=== PATIENT | female | born 1940 | race Caucasian/White ===

== ENCOUNTER 2016-08-31 07:00 | Inpatient (IN) | payer OTHER ==
[2016-08-02 12:22] VITALS: BMI 28.0
--- NOTE | 2016-08-02 12:56 | PAT Medication Instructions ---
Service Date Aug 02, 2016. Current Home Medication List Atenolol (Tenormin), 100 MG PO QAM Carboxymethylcellulose Sodium (Refresh), 1 DROP OPB TID PRN for PRN Docusate Sodium (Colace), 1 CAP PO BID PRN for Constipation Esomeprazole Magnesium (Nexium), 40 MG PO QAM Hydrocortisone 2.5% (Rectal) (Anusol-Hc 2.5%), 1 APPLN RE BID PRN for PRN Lisinopril (Zestril), 10 MG PO QAM Ondansetron Odt (Zofran Odt), 8 MG SL Q6H PRN for Nausea Probiotic Product (Loterity), 1 CAP PO QAM Tramadol (Ultram), 50 MG PO Q6H [Cymbalta], 1 TAB PO QAM Medication Instructions For Your Scheduled Surgery - Hold the following medications the morning of surgery: Probiotic Product (Loterity), 1 CAP PO QAM Lisinopril (Zestril), 10 MG PO QAM Docusate Sodium (Colace), 1 CAP PO BID PRN for Constipation - Take the following medications the morning of surgery with a sip of water: [Cymbalta], 1 TAB PO QAM Ondansetron Odt (Zofran Odt), 8 MG SL Q6H PRN for Nausea Esomeprazole Magnesium (Nexium), 40 MG PO QAM Carboxymethylcellulose Sodium (Refresh), 1 DROP OPB TID PRN for PRN Atenolol (Tenormin), 100 MG PO QAM Tramadol (Ultram), 50 MG PO Q6H (okay to take up to 4 hours prior to surgery if needed) - Take the following medications as scheduled the night before surgery: Ondansetron Odt (Zofran Odt), 8 MG SL Q6H PRN for Nausea Hydrocortisone 2.5% (Rectal) (Anusol-Hc 2.5%), 1 APPLN RE BID PRN for PRN Docusate Sodium (Colace), 1 CAP PO BID PRN for Constipation Carboxymethylcellulose Sodium (Refresh), 1 DROP OPB TID PRN for PRN Tramadol (Ultram), 50 MG PO Q6H If you have any questions please call us at [phone] (Danni Lim PA-C) or [phone] or [phone]
[2016-08-02 14:13] LABS: BASO % 0.3 %; BASO ABS # 0.03 K/uL (0-0.2); COMPLETE YES; EOS % 2.2 %; HEMATOCRIT 38.8 % (37-47); IG% 0.2 %; LYMPH % 24.8 %; LYMPH ABS # 2.34 K/uL (1.2-3.4); MEAN CELL VOLUME 94.2 fL (80-100); MEAN CORPUSCULAR HEMOGLOBIN 31.6 pg (25-34); MEAN CORPUSCULAR HGB CONC 33.5 g/dl (32-36); MEAN PLATELET VOLUME 9.8 fL (7.4-10.4); MONO % 8.3 %; NEUT % 64.2 %; PLATELET COUNT 374 K/uL (130-400); RED BLOOD COUNT 4.12 M/uL (4.2-5.4); WHITE BLOOD COUNT 9.44 K/uL (4.8-10.8)
[2016-08-02 14:22] LABS: INR 0.9 (0.9-1.1); PARTIAL THROMBOPLASTIN RATIO 1.1
[2016-08-02 14:37] LABS: ESTIMATED AVERAGE GLUCOSE 117 mg/dl; HA1C FLAG Normal (Normal)
[2016-08-02 14:45] LABS: BUN/CREATININE RATIO 12.6 (10-20); CALCIUM 9.6 mg/dl (8.5-10.1); POTASSIUM 4.3 mmol/L (3.5-5.1)
[2016-08-02 14:51] LABS: URINE APPEARANCE CLEAR (CLEAR); URINE BILIRUBIN NEG (NEG); URINE COLOR YELLOW; URINE EPITHELIAL CELL AUTO 20-30 /lpf (0-5); URINE NITRITE NEG (NEG); URINE PH 6.5 (4.5-7.5); URINE SPECIFIC GRAVITY 1.016 (1.000-1.030); UROBILINOGEN NEG (NEG)
[2016-08-02 15:00] LABS: MANUAL MICROSCOPIC REQUIRED? NO; REVIEW REQ? NO
--- NOTE | 2016-08-30 12:08 | HISTORY & PHYSICAL EXAMINATION ---
DATE OF ADMISSION: 08/31/2016 CHIEF COMPLAINT: Right knee pain. HISTORY OF PRESENT ILLNESS: The patient is a 76-year-old female with known osteoarthritis about her right knee. She is status post left total knee arthroplasty just last year. She has had a previous corticosteroid injection in her right knee. She continues to have pain and disability and now desires to proceed with right total knee arthroplasty as well. PAST MEDICAL HISTORY: Hypertension, hypercholesterolemia, PE approximately 20 years ago, chronic kidney disease, acid reflux, hiatal hernia. PAST SURGICAL HISTORY: Left knee replacement as above. MEDICATIONS: Include Tenormin 100 mg daily, tramadol 50 mg q. 6 hours p.r.n. pain, Voltaren 75 mg daily p.r.n. pain, Cymbalta 30 mg daily, Prinivil 10 mg daily, Ativan 0.5 mg 2 times daily p.r.n., Nexium 40 mg daily, Colace 100 mg 2 times daily, Refresh 1% ophthalmic solution. ALLERGIES: TO INCLUDE SIMVASTATIN, AMOXICILLIN, AND CODEINE, although she states she is okay with some pain medications sulfa. SOCIAL HISTORY AND REVIEW OF SYSTEMS: Noncontributory. PHYSICAL EXAMINATION: GENERAL: Well-nourished, well-developed female who appears her stated age. HEENT: Normocephalic, atraumatic, extraocular movements intact, oropharynx pink and moist. NECK: Supple without adenopathy. LUNGS: Clear to auscultation bilaterally. HEART: Regular rate and rhythm. ABDOMEN: Soft, nontender, nondistended. EXTREMITIES: The upper extremities are within normal limits. The right knee has neutral alignment. She complains primarily of lateral compartment pain. Her range of motion is from 0-120 degrees. X-RAYS: X-rays were reviewed. She has a neutral or slight varus aligned knee. She has bone on bone arthritis of the lateral compartment with the flexion view. She has mild degenerative change about the patellofemoral joint as well. ASSESSMENT: Right knee degenerative joint disease. PLAN: Risks versus benefits were discussed. Consent was obtained. The patient's primary care physician is Dr. Mark Garcia from [place]. We will proceed with right total knee arthroplasty upon preop workup and medical clearance.
[~2016-08-31] VITALS: Ht 167.6 cm; Wt 80.5 kg
[2016-08-31] VITALS (7 sets, daily range): BP systolic 109–157; BP diastolic 69–90; PULSE 75–92; TEMP 36.4–37; O2SAT 96–99; Ht 167.6 cm; Wt 80.5 kg
[~2016-08-31 07:00] MED LIST: ACETAMINOPHEN 500 MG TAB PO SCH; ATEN-175 PO; BUPIVACAINE 0.5 % 5 MG/1 ML PF 10ML VIAL ONE; CARB1SOL OPB; CEFAZOLIN 2000 MG/60 ML D5W 60 ML IV SCH; CYMBALTA PO; CeleBREX 200 MG CAP PO SCH; DEXAMETHASONE 4 MG TAB PO SCH; DOCU-94 PO; FAMOTIDINE 20 MG TAB PO SCH; GABAPENTIN 300 MG CAP PO SCH; HYDR2.5C37 RE; LACTATED RINGER'S 1000ML 1,000 ML IV SCH; LACTATED RINGER'S 1000ML IV SCH; LISI-461 PO; METOCLOPRAMIDE HCL 10 MG TAB PO SCH; NXM/40 PO; ONDA8TAB62 SL; PROBCAP PO; ROPIVACAINE 5MG/ML 30 ML 150 MG, BUPIVACAINE/EPINEPHR 0.5% MPF 30 ML, KETOROLAC TROMETH... INFIL SCH; TRAM-10 PO
[2016-08-31] MEDS ORDERED: MIDAZOLAM HCL 1 MG/ML 2ML VIAL ONE ×2 (08:00→10:24)
[2016-08-31] MEDS ORDERED: FENTANYL CITRATE INJ 50 MCG/1 ML 2 ML VIAL ONE (08:00)
--- NOTE | 2016-08-31 08:28 | History & Physical Bridge Note ---
H&P Re-Evaluation Bridge Note: I have examined the patient, reviewed the History & Physical and in the interval since the performance of the History & Physical I have noted the following changes of clinical significance: No changes noted
[2016-08-31] MEDS: TRANEXAMIC ACID INJ 1,000 MG in SODIUM CHLORIDE 0.9% 100ML 100 ML IV SCH ×2 (08:29→17:42)
[2016-08-31] MEDS ORDERED: CLINDAMYCIN 600 MG/54 ML D5W IV ONE (08:36)
[2016-08-31] MEDS ORDERED: NURSING VERBAL MED ORDER STA (08:42)
[2016-08-31] MEDS ORDERED: ORTHO JOINT ANESTHETIC ONE (08:55)
[2016-08-31] MEDS ORDERED: BACITRACIN 50000 UNIT VIAL ONE (08:55)
[2016-08-31] MEDS ORDERED: POVIDONE-IODINE OP SOLN 30 ML BTL ONE (08:55)
[2016-08-31] MEDS ORDERED: FENTANYL CITRATE INJ 50 MCG/1 ML 2 ML VIAL IV PRN (09:00)
[2016-08-31] MEDS ORDERED: EpHEDrine SULFATE INJ 50 MG/ML AMP IV PRN (09:00)
[2016-08-31] MEDS ORDERED: ONDANSETRON INJ 2 MG/ML 2 ML VIAL IV PRN ×2 (09:00→11:30)
[2016-08-31] MEDS ORDERED: ATROPINE SULFATE 0.1 MG/ML 5ML SYR IV PRN (09:00)
[2016-08-31] MEDS ORDERED: PROPOFOL IV EMULSION 10 MG/ML 20 ML VIAL IV ONE (10:14)
[2016-08-31] MEDS ORDERED: LIDOCAINE HCL 2% 2 ML VIAL (20MG/ML) ONE (10:14)
--- NOTE | 2016-08-31 10:48 | [facility] Post Operative Brief Note ---
Immediate Operative Summary Operative Date Aug 31, 2016. Pre-Operative Diagnosis Right Knee Degenerative Joint Disease Post-Operative Diagnosis Right Knee Degenerative Joint Disease Procedure(s) Performed Right Total Knee Arthroplasty Surgeon Dr. Xavier Robles Pointer Helper Surgeon(s) Jeevan Carlton PA-C Estimated Blood Loss 10ml Findings severe OA Specimens A. Right Knee Bone and Tissue Disposition Recovery Room / PACU
--- NOTE | 2016-08-31 11:11 | OPERATIVE REPORT ---
DATE OF OPERATION: 08/31/2016 PREOPERATIVE DIAGNOSIS: Osteoarthritis, right knee. POSTOPERATIVE DIAGNOSIS: Osteoarthritis, right knee. PROCEDURE: Right total knee arthroplasty. SURGEON: Dr. Robles. BUGGY MAN: Jeevan Carlton PA-C. ANESTHESIA: Spinal. COMPLICATIONS: None. DESCRIPTION OF PROCEDURE: Following induction of spinal anesthesia, the patient's right leg was prepped and draped in the usual sterile manner. Limb was exsanguinated with an Esmarch bandage and tourniquet was inflated to 350 mmHg. A longitudinal incision was made anteriorly. Subcutaneous tissue was sharply dissected. Electrocautery was used for hemostasis. Prepatellar bursa was incised and median parapatellar incision was performed. Patella was everted and the knee was flexed. Fat pad was removed to aid in visualization and the anterior and posterior cruciate ligaments were removed. The medial face of the tibia was cleared of soft tissue first with a Bovie and a Wells elevator. This tissue was retracted posteriorly using a blunt Hohmann. A Villanueva retractor was used to expose the synovium above on the anterior aspect of the femur and this was removed down to bone. The PSI guide was placed on the distal femur and two pins were placed anteriorly and kept in position and two additional pins were placed distally and removed. The distal femoral cutting block was placed in position and the distal femoral cut was used in the +0 setting. Next, the cutting block was removed and the size 3 femoral block was placed in the distal end of the femur. Care was taken to ensure appropriate external rotation and feeler gauge was used to ensure no notching would occur. The femoral block was centered on the distal femur and in the medial and lateral direction and was fixed using two bone screws. The gold pins were then removed. The oscillating saw was used to create the bone cuts and the distal femoral cutting block was removed and the reciprocating saw was used to further trim the femoral cuts as well as a deep in the area for the trochlear groove. Next, posterior condyle remnants were removed. Following this, a meniscal clamp and knife were utilized to remove the anterior portion of both medial and lateral meniscus. The proximal tibia PSI guide was placed into position and the proximal tibial cutting guide was screwed into position. The extra medullary alignment guide was utilized to ensure appropriate alignment. The proximal tibia was cut and the proximal tibial cutting block was removed and this bone fragment was removed. The appropriate guide was used to perform the notch cut on the distal femur and a lamina orientation and mobility specialist and a cochlear knife were utilized to finish both medial and lateral meniscectomies to remove any remnants of the posterior or anterior cruciate ligaments. Following this, the distal femoral component was impacted into position and blunt Mitchell was used to sublux the tibia anteriorly. The proximal tibia was sized and a 3 tibial tray was chosen as the size to be used. This was put into position and appropriate external rotation and a double check with extramedullary alignment guide was performed. The canal for the tibial stem was prepared first with a 17 mm drill and then the punch and a mallet and the trial tibial poly was placed. A 16 was chosen the size to be used. It was brought to extension and the patella was prepared with the patellar reamer. A 33 component was chosen the size to be used. The trial component was placed and knee was taken through a full range of motion and there was found to be no lateral subluxation of the tibia. No lateral release was required. The trials were all removed. The final components were obtained and assembled. Cement was mixed. The knee was thoroughly irrigated and the ortho mix was injected about the knee joint. The final components were cemented into position. After thoroughly suctioning and drying the bone ends, all excess cement was removed. The knee was held in extension while the cement hardened. The wound was irrigated and closed over a Hemovac drain. #1 Vicryl was used to close the extensor mechanism. Subcutaneous tissues closed using 0 Dexon. Skin was closed with yanelis. Sterile dressing of Adaptic, 4 x 4's, sterile Webril, and Primitivo was applied. The patient tolerated the procedure well. Due to the complex nature of the procedure, the entire surgery was performed with the operational assistance of Jeevan Carlton PA-C. The product safety technical assistant, under direct supervision, was involved in the actual performance of all aspects of the surgical procedure including hemostasis, tissue retraction and incision, instrument management, patient positioning, and wound closure. I attest to the content of the Intraoperative Record and any orders documented therein. Any exceptio ns are noted below.
[2016-08-31] MEDS ORDERED: MoRPHine SULFATE 2 MG/ML CARP IV PRN (11:30)
[2016-08-31] MEDS ORDERED: ALUMINUM/MAGNESIUM/SIMETH (MAALOX MAX) 30 ML UDC PO PRN (11:30)
[2016-08-31] MEDS ORDERED: MAGNESIUM HYDROXIDE SUSP 30 ML UDC PO PRN (11:30)
[2016-08-31] MEDS ORDERED: BISACODYL 10 MG SUPP PR PRN (11:30)
[2016-08-31] MEDS ORDERED: TRAMADOL HCL 50 MG TAB PO PRN (11:30)
--- NOTE | 2016-08-31 11:53 | DIAGNOSTIC IMAGING REPORT ---
RIGHT KNEE 1 OR 2 VIEWS ROUTINE CLINICAL HISTORY: Right knee osteoarthritis. Arthroplasty. COMPARISON: Knee radiograph January 08, 2015. FINDINGS: Alignment of the total right knee arthroplasty is anatomic. There is no fracture or unexpected radiopaque foreign body. Drains and skin yanelis are present. IMPRESSION: Expected findings following total right knee arthroplasty. Electronically signed by: Morgan Deutsch M.D. 08/31/2016 11:51 AM Dictated Date/Time: 08/31/2016 11:51 AM
--- NOTE | 2016-08-31 11:55 | Anesthesiology Progress Note ---
Anesthesia Post Op Note Date & Time Aug 31, 2016 at 11:54 Vital Signs Pain Intensity: 0 Vital Signs Past 12 Hours Date Time Temp Pulse Resp B/P Pulse Ox O2 Delivery O2 Flow Rate FiO2 08/31/16 11:50 36.5 91 16 123/66 96 Nasal Cannula 3 08/31/16 11:40 36.5 90 16 121/71 96 Nasal Cannula 3 08/31/16 11:30 87 16 113/65 96 Nasal Cannula 3 08/31/16 11:20 36.3 99 16 140/76 96 Mask 10 08/31/16 08:01 36.8 83 18 157/90 96 Room Air Notes Mental Status: alert / awake / arousable, participated in evaluation Pt Amnestic to Procedure: Yes Nausea / Vomiting: adequately controlled Pain: adequately controlled Airway Patency, RR, SpO2: stable & adequate BP & HR: stable & adequate Hydration State: stable & adequate Neuraxial Anesthesia: was administered, sensory block is resolving Anesthetic Complications: no major complications apparent
[2016-08-31] MEDS ORDERED: CYM/30 PO (13:09)
[2016-08-31] MEDS: D5W AND 1/2NSS + 20MEQ KCL 1,000 ML IV SCH (13:28)
[2016-08-31] MEDS: ACETAMINOPHEN 500 MG TAB PO SCH ×2 (13:29→21:08)
[2016-08-31] MEDS ORDERED: ARTIFICIAL TEARS OP SOLN OPB PRN ×2 (13:30)
[2016-08-31] MEDS: FERROUS GLUCONATE 324 MG TAB PO SCH (17:45)
[2016-08-31] MEDS: CLINDAMYCIN IV 600 MG in DEXTROSE 5% ADD-VANTAGE 50ML 50 ML IV SCH (17:45)
[2016-08-31] MEDS: OXYCODONE HCL IR 5 MG TAB (IMMEDIATE RELEASE) PO PRN (19:56)
[2016-08-31] MEDS: DOCUSATE SODIUM 100 MG CAP PO SCH (21:08)
[2016-08-31] MEDS: ASPIRIN 81 MG ECTAB PO SCH (21:08)
[2016-08-31] MEDS: OXYCODONE HCL 10 MG TABCR (OXYCONTIN) PO SCH (21:08)
[2016-09-01] VITALS (7 sets, daily range): BP systolic 120–158; BP diastolic 71–80; PULSE 71–85; TEMP 36.4–37.1; O2SAT 94–97
[2016-09-01] MEDS: OXYCODONE HCL IR 5 MG TAB (IMMEDIATE RELEASE) PO PRN ×3 (00:18→09:36)
[2016-09-01] MEDS: D5W AND 1/2NSS + 20MEQ KCL 1,000 ML IV SCH ×2 (01:22→09:39)
[2016-09-01] MEDS: CLINDAMYCIN IV 600 MG in DEXTROSE 5% ADD-VANTAGE 50ML 50 ML IV SCH (02:29)
[2016-09-01] MEDS: ACETAMINOPHEN 500 MG TAB PO SCH ×3 (05:38→21:22)
[2016-09-01 06:47] LABS: MEAN CELL VOLUME 95.4 fL (80-100); MEAN CORPUSCULAR HEMOGLOBIN 31.5 pg (25-34); MEAN PLATELET VOLUME 9.5 fL (7.4-10.4); PLATELET COUNT 350 K/uL (130-400); RED BLOOD COUNT 3.46 M/uL (4.2-5.4); WHITE BLOOD COUNT 20.08 K/uL (4.8-10.8)
[2016-09-01 07:17] LABS: BUN/CREATININE RATIO 15.5 (10-20); CALCIUM 8.7 mg/dl (8.5-10.1); CREATININE 1.3 mg/dl (0.60-1.20); POTASSIUM 4.8 mmol/L (3.5-5.1)
--- NOTE | 2016-09-01 08:11 | Anesthesiology Progress Note ---
Anesthesia Post Op Note Date & Time Sep 01, 2016 at 08:10 Vital Signs Pain Intensity: 9.0 Vital Signs Past 12 Hours Date Time Temp Pulse Resp B/P Pulse Ox O2 Delivery O2 Flow Rate FiO2 09/01/16 07:19 36.7 74 18 132/72 95 Room Air 09/01/16 02:57 36.4 85 16 156/80 96 Room Air 09/01/16 00:07 36.4 78 16 158/74 97 Room Air 09/01/16 00:05 Room Air Notes Mental Status: alert / awake / arousable, participated in evaluation Pt Amnestic to Procedure: Yes Nausea / Vomiting: adequately controlled Pain: adequately controlled Airway Patency, RR, SpO2: stable & adequate BP & HR: stable & adequate Hydration State: stable & adequate Neuraxial Anesthesia: sensory block resolved Anesthetic Complications: no major complications apparent
--- NOTE | 2016-09-01 08:24 | Orthopedic Progress Note ---
Orthopedic Progress Note Date of Service Sep 01, 2016. Subjective Post OP Day: 1 Reports: feeling well, Denies: SOB, calf pain, chest pain, light headedness, nausea / vomiting Objective calves soft nontender, N/V intact, dressing C/D/I, A&O x3, toes mobile Date Time Temp Pulse Resp B/P Pulse Ox O2 Delivery O2 Flow Rate FiO2 09/01/16 07:19 36.7 74 18 132/72 95 Room Air 09/01/16 02:57 36.4 85 16 156/80 96 Room Air 09/01/16 00:07 36.4 78 16 158/74 97 Room Air 09/01/16 00:05 Room Air 08/31/16 18:43 36.4 82 17 125/77 96 Room Air 08/31/16 15:30 Nasal Cannula 2.0 08/31/16 15:01 36.4 75 18 109/69 98 Nasal Cannula 2.0 08/31/16 14:00 37.0 87 16 125/81 98 Nasal Cannula 2.0 08/31/16 13:00 92 16 111/69 99 Nasal Cannula 2.0 08/31/16 12:37 96 Nasal Cannula 2.0 08/31/16 12:30 36.6 87 17 119/72 97 Nasal Cannula 2.0 08/31/16 12:05 Nasal Cannula 2.0 08/31/16 12:05 36.5 85 16 119/70 96 Nasal Cannula 2.0 08/31/16 11:50 36.5 91 16 123/66 96 Nasal Cannula 3 08/31/16 11:40 36.5 90 16 121/71 96 Nasal Cannula 3 08/31/16 11:30 87 16 113/65 96 Nasal Cannula 3 08/31/16 11:20 36.3 99 16 140/76 96 Mask 10 Laboratory Results 24 Hours: Test 09/01/16 05:45 Hematocrit 33.0 % Hemoglobin 10.9 g/dL Assessment & Plan Assessment: POD 1 s/p Right TKA BUN/Creat elevated Plan: PT/OT Planning for Home with Home Health PT h/o CKD with likely increase due to surgery/dehydration - continue IV fluids for now. No NSAID's ordered. Inhouse Planning Pain Management: Oxycontin, Ultram, Morphine, PO Tylenol, Oxy IR DVT Prophylaxis: TEDs, SCDs, ASA Discharge Planning Discharge Planning: home with home health Pain Management: Oxycontin, PO Tylenol, Oxy IR DVT Prophylaxis: TEDs, ASA Therapy: Physical Therapy
--- NOTE | 2016-09-01 08:41 | Clinical Documentation Query ---
CLINICAL DOCUMENTATION QUERY Dr. SANDHU, In your clinical opinion is this patient being managed for: ( x ) Acute kidney injury on CKD stage 3 ( ) Other explanation of clinical findings (Please Explain) ( ) Unable to determine (Please Define) ( ) Need to Discuss ( ) Not Agree The medical record reflects the following clinical findings, treatment, and risk factors. Clinical Indicators: 76 yo female presented for R TKA. PMH includes chronic kidney disease. Baseline Cr over the past year is 1.0 with a GFR 53.9-54.7 Treatment: monitor PRP's, IV fluids Risk Factors: age, HTN, hx of CKD Acute Kidney Injury is defined as any of the following: o Increase in SCr by (>/=) 0.3 mg/dl within 48 hours; or o Increase in SCr to (>/=)1.5 times baseline, which is known or presumed to have occurred within the prior 7 days; or o Urine volume <0.5 ml/kg/h for 6 hours. The stages of CKD according to the [employer] are as follows: Stage I: GFR >90 Stage II: GFR 60-89 Stage III: GFR 30-59 Stage IV: GFR 15-29 Stage V: GFR <15 Please clarify and document your clinical opinion in the progress notes and discharge summary. Terms such as "probable", "suspected", "likely", "questionable", "possible", or "still to be ruled out" are acceptable. IF IN AGREEMENT, YOU MUST DOCUMENT ABOVE DIAGNOSTIC STATEMENT IN DAILY PROGRESS NOTES AND DISCHARGE SUMMARY. This document is not part of the patient's record. Thank You, Sindhu Lamb, RN [phone]
[2016-09-01] MEDS: ASPIRIN 81 MG ECTAB PO SCH ×2 (09:37→20:25)
[2016-09-01] MEDS: MULTIVITAMIN TAB PO SCH (09:37)
[2016-09-01] MEDS: DOCUSATE SODIUM 100 MG CAP PO SCH ×2 (09:37→20:25)
[2016-09-01] MEDS: OXYCODONE HCL 10 MG TABCR (OXYCONTIN) PO SCH ×2 (09:37→20:25)
[2016-09-01] MEDS: DULOXETINE (CYMBALTA) 30 MG CAP PO SCH (09:38)
[2016-09-01] MEDS: PANTOprazole SOD 40 MG TAB PO SCH (09:38)
[2016-09-01] MEDS: FERROUS GLUCONATE 324 MG TAB PO SCH ×3 (10:50→18:27)
[2016-09-01] MEDS: LISINOPRIL 10 MG TAB PO SCH (10:50)
[2016-09-01] MEDS ORDERED: NURSING VERBAL MED ORDER ONE (13:30)
[2016-09-01] MEDS: D5W AND 1/2NSS + 20MEQ KCL 1000 ML IV SCH (16:17)
[2016-09-02] MEDS: D5W AND 1/2NSS + 20MEQ KCL 1000 ML IV SCH ×2 (00:30→09:33)
[2016-09-02] MEDS: OXYCODONE HCL IR 5 MG TAB (IMMEDIATE RELEASE) PO PRN ×2 (02:04→05:32)
[2016-09-02] MEDS: ACETAMINOPHEN 500 MG TAB PO SCH (05:30)
[2016-09-02 06:36] LABS: HEMATOCRIT 32.7 % (37-47); MEAN CELL VOLUME 96.5 fL (80-100); MEAN CORPUSCULAR HEMOGLOBIN 31.3 pg (25-34); MEAN CORPUSCULAR HGB CONC 32.4 g/dl (32-36); MEAN PLATELET VOLUME 9.6 fL (7.4-10.4); PLATELET COUNT 343 K/uL (130-400); RED BLOOD COUNT 3.39 M/uL (4.2-5.4); WHITE BLOOD COUNT 17.31 K/uL (4.8-10.8)
[2016-09-02 07:11] LABS: BUN/CREATININE RATIO 18.8 (10-20); CREATININE 1.1 mg/dl (0.60-1.20); POTASSIUM 4.8 mmol/L (3.5-5.1)
[2016-09-02] MEDS: OXYCODONE HCL 10 MG TABCR (OXYCONTIN) PO SCH (07:16)
[2016-09-02] MEDS: LISINOPRIL 10 MG TAB PO SCH (07:17)
[2016-09-02] MEDS: ASPIRIN 81 MG ECTAB PO SCH (07:17)
[2016-09-02] MEDS: DULOXETINE (CYMBALTA) 30 MG CAP PO SCH (07:17)
[2016-09-02] MEDS: FERROUS GLUCONATE 324 MG TAB PO SCH (07:18)
[2016-09-02] MEDS: DOCUSATE SODIUM 100 MG CAP PO SCH (07:18)
[2016-09-02] MEDS: PANTOprazole SOD 40 MG TAB PO SCH (07:18)
[2016-09-02] MEDS: MULTIVITAMIN TAB PO SCH (07:18)
[2016-09-02 07:39] VITALS: BP 113/50; PULSE 73; O2SAT 96
--- NOTE | 2016-09-02 08:07 | Orthopedic Progress Note ---
Orthopedic Progress Note Date of Service Sep 02, 2016. Subjective Post OP Day: 2 Reports: feeling well, pain controlled w PO medications, Denies: SOB, calf pain , chest pain, complaints, light headedness, nausea / vomiting Objective calves soft nontender, N/V intact, capillary refill less than 2 sec., dressing C /D/I, A&O x3, toes mobile Date Time Temp Pulse Resp B/P Pulse Ox O2 Delivery O2 Flow Rate FiO2 09/02/16 07:39 73 18 113/50 96 Room Air 09/02/16 07:20 Room Air 09/02/16 00:30 Room Air 09/01/16 23:45 36.6 83 16 123/73 97 Room Air 09/01/16 16:15 Room Air 09/01/16 15:23 36.7 76 18 132/77 97 Room Air 09/01/16 12:14 37.1 71 17 144/74 95 Room Air 09/01/16 09:15 82 94 09/01/16 09:10 Room Air Laboratory Results 24 Hours: Test 09/02/16 06:08 Hematocrit 32.7 % Hemoglobin 10.6 g/dL Assessment & Plan Assessment: POD 2 s/p Right TKA BUN/Creat elevated- improved Plan: PT/OT Planning for Home with Home Health PT today h/o CKD with likely increase due to surgery/dehydration - continue IV fluids for now. No NSAID's ordered. Follow w PCP on D/C. Inhouse Planning Pain Management: Oxycontin, Ultram, Morphine, PO Tylenol, Oxy IR DVT Prophylaxis: TEDs, SCDs, ASA Discharge Planning Discharge Planning: home with home health Pain Management: Oxycontin, PO Tylenol, Oxy IR DVT Prophylaxis: TEDs, ASA Therapy: Physical Therapy
[2016-09-02] MEDS ORDERED: ACET-1138 PO (08:10)
[2016-09-02] MEDS ORDERED: ASPEC81 PO (08:10)
[2016-09-02] MEDS ORDERED: RXC5 PO (08:10)
[2016-09-02] MEDS ORDERED: OXYSR10 PO (08:10)
--- NOTE | 2016-09-02 08:14 | Discharge Instructions ---
Discharge Instructions Date of Service Sep 02, 2016. Admission Reason for Admission: Right Knee Osteoarthritis Discharge Discharge Diagnosis / Problem: Right TKA Discharge Goals Goal(s): Improve function Activity Recommendations Activity Limitations: as noted below . Instructions / Follow-Up Instructions / Follow-Up ACTIVITY RECOMMENDATIONS: SELF CARE INSTRUCTIONS AFTER TOTAL KNEE REPLACEMENT A. You may need to continue a physical therapy program after discharge from the hospital. There are several options available to you. Your doctor will assist you in selecting the best one for you. 1. An out-patient facility 2 to 3 times a week for therapy or home therapy. 2. Continue working on all exercises taught to you in the hospital. Your goals should be to increase bending of your knee to 90 degrees and beyond and to fully straighten your knee. B. You may progress at your own pace from walking with a walker or crutches to a cane; then to no assistive devices. C. Make walking a part of your daily routine. Be up as much as comfortable with rest periods throughout the day. Rest with leg elevation is very important. Use the ice wrap frequently for the first 3-4 weeks. D. There are no restrictions on activities. You may ride in a car, shop, participate in agriculture laborer and all social activities. E. Wear the long elastic stockings (CAYLA hose) 20 hours a day for 2 weeks after surgery. They can be removed several times a day for laundering and for a bath. F. You may shower, no tub baths until cleared by your doctor. SPECIAL CARE INSTRUCTIONS: VERY IMPORTANT TO READ AND REVIEW A. There are a few signs you need to watch for after you are home. Call [facility] if you notice any of the followin. Increased severe knee pain. Some pain is expected especially when you exercise. 2. Increased swelling in your leg or knee; pain or swelling of the calf muscle in either lower leg. 3. Any fluid drainage from the incision. 4. Shortness of breath or chest pain. B. Please call [facility] at if you have any concerns or questions about your operation or recovery. The doctor or his nurse will return your call promptly. C. You must take antibiotics before dental work, bladder, bowel or other surgery. Your doctor will provide you with a permanent care to carry describing this precaution. IMPORTANT: * REMEMBER TO TAKE ASPIRIN, 81 MG, TWICE DAILY FOR 4 WEEKS UNLESS OTHERWISE DIRECTED. THIS IS YOUR BLOOD THINNER. * HIGH RISK PATIENTS MAY BE PRESCRIBED A STRONGER BLOOD THINNER. THIS WILL BE PROVIDED AT DISCHARGE. * CALL IF INCREASED PAIN, REDNESS, DRAINAGE OR FEVER GREATER THAT 101. * WEAR CAYLA HOSE 20 HOURS PER DAY FOR 2 WEEKS. * YOU MAY HAVE A LARGE BAND-AID LIKE DRESSING (SILVERON). THIS WILL REMAIN ON YOUR INCISION FOR 7 DAYS, THEN CAN BE REMOVED. IF INCISION IS LEAKING THROUGH DRESSING, CALL THE OFFICE . FOLLOW UP VISIT: If appointment is not already scheduled: Please call [facility] to make a follow-up appointment for 2 weeks after your surgery at . Current Hospital Diet Patient's current hospital diet: Regular Diet Discharge Diet Recommended Diet: Regular Diet Procedures Procedures Performed: Right Total Knee Arthroplasty Pending Studies Studies pending at discharge: no Laboratory Results Hemoglobin A1c Test 08/02/16 13:05 Range/Units Estimated Average Glucose 117 mg/dl Hemoglobin A1c 5.7 H 4.5-5.6 % Medical Emergencies . Who to Call and When: Medical Emergencies: If at any time you feel your situation is an emergency, please call 911 immediately. . Non-Emergent Contact Non-Emergency issues call your: Primary Care Provider . "Provider Documentation" section prepared by Jose Man. . VTE Core Measure Inpt VTE Proph given/why not?: Other Anticoagulation (asa), T.E.D. Stockings, SCD's [place] Drug Monitoring Program Search Results: patient reviewed within database, no issues identified
[2016-09-02 09:35] VITALS: BP 113/50; PULSE 73; TEMP 36.6; O2SAT 96
--- NOTE | 2016-09-06 16:24 | DISCHARGE SUMMARY ---
DISCHARGE DIAGNOSIS: Degenerative joint disease, right knee. SECONDARY DIAGNOSES: Hypertension, hypercholesterolemia, pulmonary embolus approximately 20 years ago, chronic kidney disease, gastroesophageal reflux disease, hiatal hernia. CONSULTS: None. COMPLICATIONS: None. PROCEDURES: Right total knee arthroplasty performed by Dr. Robles on 08/31/2016. BRIEF HISTORY: As dictated in history and physical. HOSPITAL SUMMARY: The patient was admitted on the above date and had the above-noted surgery performed which she tolerated well. On first postoperative day, she was feeling well and had no complaints. Calves were soft, nontender, neurovascularly intact. Dressings clean, dry and intact. Toes were mobile. Vital signs stable. She is afebrile. Hemoglobin was 10.9 and she was started on physical therapy protocol and continued on DVT prophylaxis and pain management. BUN and creatinine were elevated and likely due to history of CKD and dehydration from surgery. Plans were to stay away from nonsteroidal anti-inflammatory medications. By her second postoperative day her creatinine came back down to 1.1 from 1.3, BUN was around 21. She was otherwise remaining stable and progressing with her PT. She had no complaints and it was felt that she could be discharged to home. For further review, please see chart. LAB AND X-RAY DATA: As per chart. DISCHARGE INSTRUCTIONS: The patient was discharged to home in satisfactory condition on 09/02/2016. DIET: Regular. ACTIVITY: Follow TK instruction sheets and special care instructions as noted. Follow up with Dr. Robles in 2 weeks. The patient to call for appointment if one has not been made for you. DISCHARGE MEDICATIONS: Acetaminophen 1000 mg p.o. q. 8 hours, aspirin 81 mg p.o. b.i.d. for 30 days, OxyContin 10 mg p.o. q. 12 hours, oxycodone 5-10 mg p.o. q. 4 hours p.r.n. Resume taking atenolol 100 mg p.o. q.a.m. and Refresh Tears 1 drop OPB t.i.d. p.r.n., Colace 1 cap p.o. b.i.d., Cymbalta 1 cap p.o. daily, 30 mg cap, Nexium 40 mg p.o. q.a.m., Anusol 2.5% one application RE b.i.d. p.r.n., lisinopril 10 mg p.o. q.a.m., Zofran 8 mg sublingual q. 6 hours p.r.n., probiotic 1 cap p.o. q.a.m.
== END 2016-09-02 10:45 | disposition home health service (06) | DRG 470 ==
LOC: ENRESERVTM → ENRESERVDT → C.ACU 07:00 → C.3E 08:30
PROC: 0SRC0J9 Replacement of Right Knee Joint with Synthetic Substitute, Cemented, Open Approach (ICD-10-PCS; principal; 2016-08-31 09:45)
DX: M17.11 Unilateral primary osteoarthritis, right knee (principal); I12.9 Hypertensive chronic kidney disease with stage 1 through stage 4 chronic kidney disease, or unspecified chronic kidney disease; N18.9 Chronic kidney disease, unspecified; K21.9 Gastro-esophageal reflux disease without esophagitis; Z96.652 Presence of left artificial knee joint; Z86.711 Personal history of pulmonary embolism; Z79.1 Long term (current) use of non-steroidal anti-inflammatories (NSAID); Z79.899 Other long term (current) drug therapy; Z88.0 Allergy status to penicillin; Z88.5 Allergy status to narcotic agent; Z88.8 Allergy status to other drugs, medicaments and biological substances

== ENCOUNTER → 2016-11-14 | Outpatient (CLI) | payer OTHER ==
[~2016-11-14] MED LIST changes: +ACET-1138 PO; -ACETAMINOPHEN 500 MG TAB PO SCH; +ASPEC81 PO; -BUPIVACAINE 0.5 % 5 MG/1 ML PF 10ML VIAL ONE; -CEFAZOLIN 2000 MG/60 ML D5W 60 ML IV SCH; +CYM/30 PO; -CYMBALTA PO; -CeleBREX 200 MG CAP PO SCH; -DEXAMETHASONE 4 MG TAB PO SCH; -FAMOTIDINE 20 MG TAB PO SCH; -GABAPENTIN 300 MG CAP PO SCH; -LACTATED RINGER'S 1000ML 1,000 ML IV SCH; -LACTATED RINGER'S 1000ML IV SCH; -METOCLOPRAMIDE HCL 10 MG TAB PO SCH; +OXYSR10 PO; -ROPIVACAINE 5MG/ML 30 ML 150 MG, BUPIVACAINE/EPINEPHR 0.5% MPF 30 ML, KETOROLAC TROMETH... INFIL SCH; +RXC5 PO; -TRAM-10 PO
[2016-11-14 13:18] LABS: ALT/SGPT 19 U/L (12-78); AST/SGOT 14 U/L (15-37); BLOOD UREA NITROGEN 13 mg/dl (7-18); BUN/CREATININE RATIO 9.8 (10-20); CALCIUM 9.6 mg/dl (8.5-10.1); CARBON DIOXIDE 27 mmol/L (21-32); CHLORIDE 106 mmol/L (98-107); GLUCOSE,FASTING 112 mg/dl (70-99); POTASSIUM 3.8 mmol/L (3.5-5.1); SODIUM 141 mmol/L (136-145)
[2016-11-14 13:21] LABS: ALKALINE PHOSPHATASE 83 U/L (45-117); CHOLESTEROL 237 mg/dl (0-200); CHOLESTEROL/HDL RATIO 3.1; HDL CHOLESTEROL 76 mg/dl; LDL CHOLESTEROL CALCULATED 138 mg/dl; TRIGLYCERIDES 114 mg/dl (0-150); VERY LOW DENSITY LIPOPROT CALC 23 mg/dl
== END | disposition home or self-care (01) ==
LOC: C.LABPBG 08:02
PROVIDERS: ATTEND Physician Assistant
DX: Z00.00 Encounter for general adult medical examination without abnormal findings (principal)

== ENCOUNTER → 2016-11-16 | Outpatient (CLI) | payer OTHER ==
[2016-11-16 12:48] LABS: ESTIMATED AVERAGE GLUCOSE 117 mg/dl; HA1C FLAG Normal (Normal)
== END | disposition home or self-care (01) ==
LOC: C.LABPBG 10:47
PROVIDERS: ATTEND Physician Assistant
DX: R73.01 Impaired fasting glucose (principal)

== ENCOUNTER → 2016-12-19 | Outpatient (CLI) | payer OTHER ==
[2016-12-19 13:00] LABS: BLOOD UREA NITROGEN 17 mg/dl (7-18); BUN/CREATININE RATIO 12.9 (10-20); CALCIUM 9.6 mg/dl (8.5-10.1); CARBON DIOXIDE 29 mmol/L (21-32); CHLORIDE 106 mmol/L (98-107); GLUCOSE 95 mg/dl (70-99); PHOSPHORUS 3.2 mg/dl (2.5-4.9); POTASSIUM 3.9 mmol/L (3.5-5.1); SODIUM 139 mmol/L (136-145)
[2016-12-19 17:39] LABS: URINE APPEARANCE CLEAR (CLEAR); URINE BILIRUBIN NEG (NEG); URINE COLOR YELLOW; URINE NITRITE NEG (NEG); URINE SPECIFIC GRAVITY 1.016 (1.000-1.030); UROBILINOGEN NEG (NEG)
[2016-12-19 17:50] LABS: MANUAL MICROSCOPIC REQUIRED? NO; REVIEW REQ? NO
== END | disposition home or self-care (01) ==
LOC: C.LABPBG 10:34
PROVIDERS: ATTEND Internal Medicine Nephrology
DX: R31.29 Other microscopic hematuria (principal)

== ENCOUNTER → 2016-12-22 | Outpatient (CLI) | payer OTHER ==
[2016-12-22 17:35] LABS: URINE APPEARANCE CLEAR (CLEAR); URINE BILIRUBIN NEG (NEG); URINE COLOR YELLOW; URINE EPITHELIAL CELL AUTO 20-30 /lpf (0-5); URINE NITRITE NEG (NEG); URINE PH 6.5 (4.5-7.5); URINE SPECIFIC GRAVITY 1.015 (1.000-1.030); UROBILINOGEN NEG (NEG)
[2016-12-22 17:40] LABS: MANUAL MICROSCOPIC REQUIRED? NO; REVIEW REQ? NO
[2016-12-22 17:57] LABS: URINE PROTIEN/CREAT RATIO 0.2 (0-0.2)
--- NOTE | 2017-01-05 07:52 | CODING QUERY NO DIAGNOSIS ---
TREATMENT RENDERED WITHOUT A DIAGNOSIS : 1940 To promote full compliance with coding requirements relating to patient care, physician participation is requested in all cases of washhouse hand uncertainty. Please assist us with providing a diagnosis/symptom for the test(s) below: A diagnosis/symptom was not documented on your Order. A valid diagnosis/symptom is required to bill all insurances. Please remember that we are unable to code a diagnosis of rule out, probable, possible, questionable, or suspected. Tests that require a diagnosis: DOS: 12/22/16 * UA CLEAN CATCH DIAGNOSIS: * URINE PROTEIN/ CREAT DIAGNOSIS: * URINE CYTOLOGY DIAGNOSIS: Provider Signature: Date: Thank you Kasie Hickey Health Information Management Once completed, please kindly fax back to [phone] For questions please call [phone]
== END | disposition home or self-care (01) ==
LOC: C.LABPBG 12:27
PROVIDERS: ATTEND Internal Medicine Nephrology
DX: R31.29 Other microscopic hematuria (principal)

== ENCOUNTER → 2017-04-12 | Outpatient (CLI) | payer OTHER ==
[2017-04-12 12:46] LABS: BLOOD UREA NITROGEN 17 mg/dl (7-18); BUN/CREATININE RATIO 15.8 (10-20); CALCIUM 9.3 mg/dl (8.5-10.1); CARBON DIOXIDE 30 mmol/L (21-32); CHLORIDE 100 mmol/L (98-107); CHOLESTEROL 203 mg/dl (0-200); CREATININE 1.09 mg/dl (0.60-1.20); ESTIMATED AVERAGE GLUCOSE 111 mg/dl; GLUCOSE,FASTING 104 mg/dl (70-99); HA1C FLAG Normal (Normal); POTASSIUM 3.9 mmol/L (3.5-5.1); SODIUM 135 mmol/L (136-145)
[2017-04-12 12:50] LABS: CHOLESTEROL/HDL RATIO 3.1; HDL CHOLESTEROL 66 mg/dl; LDL CHOLESTEROL CALCULATED 115 mg/dl; TRIGLYCERIDES 109 mg/dl (0-150); VERY LOW DENSITY LIPOPROT CALC 22 mg/dl
== END | disposition home or self-care (01) ==
LOC: C.LABPBG 08:42
PROVIDERS: ATTEND Physician Assistant
DX: Z00.00 Encounter for general adult medical examination without abnormal findings (principal); R73.03 Prediabetes

== ENCOUNTER → 2017-07-16 | Outpatient (CLI) | payer OTHER ==
[2017-07-16 17:56] LABS: HEMATOCRIT 37.5 % (37-47); HEMOGLOBIN 12.2 g/dL (12.0-16.0); MEAN CELL VOLUME 93.5 fL (80-100); MEAN CORPUSCULAR HEMOGLOBIN 30.4 pg (25-34); MEAN CORPUSCULAR HGB CONC 32.5 g/dl (32-36); PLATELET COUNT 388 K/uL (130-400); RED CELL DISTRIBUTION WIDTH CV 13.2 % (11.5-14.5); RED CELL DISTRIBUTION WIDTH SD 45.1 fL (36.4-46.3); WHITE BLOOD COUNT 8.45 K/uL (4.8-10.8)
[2017-07-16 18:35] LABS: ALBUMIN 3.6 gm/dl (3.4-5.0); BLOOD UREA NITROGEN 13 mg/dl (7-18); CARBON DIOXIDE 27 mmol/L (21-32); CREATININE 1.24 mg/dl (0.60-1.20); GLUCOSE 96 mg/dl (70-99); PHOSPHORUS 3.1 mg/dl (2.5-4.9); POTASSIUM 4.4 mmol/L (3.5-5.1); SODIUM 137 mmol/L (136-145)
== END | disposition home or self-care (01) ==
LOC: C.LABPBG 11:11
PROVIDERS: ATTEND Internal Medicine Nephrology
DX: N18.9 Chronic kidney disease, unspecified (principal)

== ENCOUNTER 2019-01-07 17:25 | Observation (INO) ==
[2019-01-07] MEDS ORDERED: ACETAMINOPHEN 1,000 MG/100 ML VIAL IV STA (17:36)
[2019-01-07] MEDS ORDERED: SODIUM CHLORIDE 0.9% 1000ML 1,000 ML IV SCH (17:45)
--- NOTE | 2019-01-07 17:59 | CT Scan Report ---
CT head/brain wo con CLINICAL HISTORY: 78 years-old Female with fall, forehead hematoma. Acute head injury status post fa ll TECHNIQUE: Multiple axial CT images of the head were obtained without contrast. A dose lowering tech nique was utilized adhering to the principles of ALARA. COMPARISON: None. FINDINGS: No acute intracranial hemorrhage, midline shift, intracranial mass, hydrocephalus, territorial ischem ia or abnormal extra-axial collection. Age-related involutional changes. Mild degree of scattered whi te matter hypodensities suggest chronic microvascular ischemic disease. Senescent calcifications of t he lentiform nuclei. Cerebral vascular calcifications noted. The calvarium is intact. 2.2 x 0.5 cm right forehead scalp hematoma. Prior bilateral cataract repair. The paranasal sinuses, mastoid air cells, and middle ear cavities are clear. IMPRESSION: 1. No acute intracranial abnormality or calvarial fracture. 2. Small right forehead scalp hematoma. The above report was generated using voice recognition software. It may contain grammatical, syntax o r spelling errors. Electronically signed by: Elias Lockhart M.D. 01/07/2019 5:57 PM
--- NOTE | 2019-01-07 18:03 | CT Scan Report ---
CT cervical spine wo con CLINICAL HISTORY: 78 years-old Female with fall. Acute head and neck injury status post fall COMPARISON: Head CT of same day. TECHNIQUE: Multiple axial CT images of the cervical spine were obtained without contrast. A dose low ering technique was utilized adhering to the principles of ALARA. FINDINGS: Mildly demineralized appearance the bones. Straightening of the normal cervical lordosis. Severe dege nerative changes at C1-C2. Multilevel disc space narrowing, moderate at C4-C5, C5-C6 and C6-C7. Moder ate multilevel facet arthrosis. Multilevel posterior disc osteophyte complex formation, most pronounc ed at C3-C4. Calcifications of the nuchal ligament are noted. No acute fracture or subluxation identi fied. Mastoid air cells appear clear. Evaluation of the central canal and neuroforamina is better ass essed by MRI. Multilevel foraminal narrowing is noted. No definite high-grade central canal stenosis. Pleural parenchymal calcifications of the left greater than right lung apices. No pneumothorax. Soft tissues are unremarkable. Medial course of the bilateral common carotid arteries. IMPRESSION: No acute cervical spine fracture or subluxation. The above report was generated using voice recognition software. It may contain grammatical, syntax o r spelling errors. Electronically signed by: Elias Lockhart M.D. 01/07/2019 6:02 PM
--- NOTE | 2019-01-07 18:15 | XRay Report ---
XR chest 1V portable CLINICAL HISTORY: 78 years-old Female presenting with weakness. TECHNIQUE: Portable semiupright AP view of the chest was obtained. COMPARISON: 11/25/2014. FINDINGS: Cardiac silhouette enlarged. No focal opacity. No large effusion or pneumothorax. Osseous structures normal. Upper abdomen normal. IMPRESSION: 1. Cardiomegaly. No other convincing evidence of acute cardiopulmonary disease. Electronically signed by: Erick Astorga M.D. 01/07/2019 6:13 PM
--- NOTE | 2019-01-07 18:23 | XRay Report ---
XR hip LT 2-3V w pelvis CLINICAL HISTORY: 78 years-old Female presenting with fall. TECHNIQUE: Single frontal pelvis and frontal and frog-leg lateral views of the left hip were obtained . COMPARISON: Correlation made to CT from 2016. FINDINGS: Sacroiliac joints, pubic symphysis, and bilateral hip joints congruent. Mild joint space loss in the bilateral hips. Bony pelvis intact. The left hip joint specifically demonstrates an intact left femor al neck. No radiographic soft tissue abnormality. IMPRESSION: No acute osseous injury. Electronically signed by: Erick Astorga M.D. 01/07/2019 6:22 PM
[2019-01-07 18:37] LABS: Basophils # (auto) 0.03 K/uL (0-0.2); Basophils % (auto) 0.3 %; Eosinophils # (auto) 0.11 K/uL (0-0.5); Eosinophils % (auto) 1.2 %; Hematocrit (blood only) 36.3 % (37-47); Hemoglobin 11.8 g/dL (12.0-16.0); Immature Granulocytes # (auto) 0.03 K/uL (0.00-0.02); Immature Granulocytes % (auto) 0.3 %; Lymphocytes # (auto) 2.11 K/uL (1.2-3.4); Lymphocytes % (auto) 22.9 %; Mean Corpuscular Hemoglobin 29.7 pg (25-34); Mean Corpuscular Hgb Conc 32.5 g/dL (32-36); Mean Corpuscular Volume 91.4 fL (80-100); Mean Platelet Volume 9.3 fL (7.4-10.4); Monocytes # (auto) 0.63 K/uL (0.11-0.59); Monocytes % (auto) 6.8 %; Neutrophils # (auto) 6.32 K/uL (1.4-6.5); Neutrophils % (auto) 68.5 %; Platelet Count 357 K/uL (130-400); RDW Coefficient of Variation 13.9 % (11.5-14.5); RDW Standard Deviation 46.4 fL (36.4-46.3); Red Blood Count 3.97 M/uL (4.2-5.4); White Blood Count 9.23 K/uL (4.8-10.8)
[2019-01-07 18:52] LABS: Alanine Aminotransferase 20 U/L (12-78); Albumin Level 3.5 gm/dl (3.4-5.0); Aspartate Aminotransferase 20 U/L (15-37); BUN Creatinine Ratio 9.2 (10-20); Blood Urea Nitrogen 12 mg/dl (7-18); Calcium 8.7 mg/dl (8.5-10.1); Carbon Dioxide 24 mmol/L (21-32); Chloride 104 mmol/L (98-107); Creatinine Clr Calc Pharmacy 36.1 ml/min; Est GFR (African American) 44.5; Est GFR (Non-African American) 38.4; Glucose 105 mg/dl (70-99); Potassium 3.6 mmol/L (3.5-5.1); Sodium 137 mmol/L (136-145)
[2019-01-07 19:03] LABS: Alkaline Phosphatase 74 U/L (45-117); Bilirubin,Total 0.2 mg/dl (0.2-1); Globulin 3.5 gm/dl (2.5-4.0); Troponin I < 0.015 ng/ml (0-0.045)
[2019-01-07 19:28] LABS: Appearance Urine Clear (Clear); Bilirubin Urine Negative (Negative); Blood Urine Negative (Negative); Cast Urine Automated 0 /lpf (0-5); Color Urine Yellow; Glucose Urine UA Negative (Negative); Ketones Urine Negative (Negative); Leukocyte Esterase Urine Trace (Negative); Nitrite Urine Negative (Negative); Protein Urine Negative (Negative); Specific Gravity Urine 1.012 (1.000-1.030); Urobilinogen Urine Negative (Negative); pH Urine 6.5 (4.5-7.5)
[2019-01-07 19:49] LABS: Bacteria Urine Automated 1+ (Negative); RBC Urine Automated 0-4 /hpf (0-4)
--- NOTE | 2019-01-07 20:12 | History & Physical Report ---
Date of Service January 07, 2019 Assessment & Plan (1) Closed head injury: 78 y/o F with PMH CKD III, HTN, HLD, Anxiety, GERD presents to [facility] after consuming 7 mixed drinks with subsequent fall at home causing R forehead hematoma, found to have alcohol level of 231. Alcohol Intoxication with Head Injury -C-Spine/Head/Hip/Pelvis Imaging unremarkable -alcohol 231 on admit -AWSS Protocol -will observe overnight with likely d/c tomorrow -IVF at 100 Anterior Lead Ischemia -New T wave inversion V2 when compared to prior EKG July 2016 -initial trop neg. Serial trops pending -ECHO in AM HTN Holding home Lisinopril, cont atenolol 100 mg Acute on CKD -Baseline Cr ~1. On admit 1.31 -likely 2/2 vomiting -Cont IVF as above Anxiety -cont home duloxetine 30 mg GERD -cont home pantoprazole 40 mg Mild Hypokalemia -K 3.6 on admit/ Likely 2/2 vomiting -repleted with IV K-riders as pt NPO -repeat BMP in AM FEN/GI: NPO for now DVT Prophylaxis: SCD's, other prophylaxis deferred 2/2 short anticipated hospital stay FULL CODE Dispo: Obs on Med Tele. Anticipate d/c tomorrow History of Present Illness Chief Complaint: Head trauma 2/2 alcohol intoxication Primary Care Provider: Yessenia Cameron, DO 78 y/o F with PMH CKD III, HTN, HLD, Anxiety, GERD presents to [facility] after fall at home. Per sister, pt had 7 rum and cokes today and tripped in kitchen landing face forward and hitting her head. Normally, pt drinks 2-3 times per week and has 2-3 rum and cokes per session. Pt denied any LOC, preceding lightheadedness, dizziness, CP, palpitations, SOB. Some N/V after recovery, but unsure how much. Pt not on any blood thinners. Pt with no other acute concerns or complaints at present. ER Course: CT C-Spine: No acute cervical spine fracture or subluxation. Head CT: No acute intracranial abnormality or calvarial fracture. Hip/Pelvis XR: No acute osseous injury. EKG: Inverted T wave anterior lead V2 Labs: Cr 1.31, Alcohol 231. Trops neg x1. Otherwise unremarkable. Pt given IV Ofirmev, IVF. Surg Hx: Hysterectomy, Appendectomy Social: Alcohol as above. Denies Tobacco/Illicit Drug Use. Pt lives at home with sister and [id number]. Allergies Allergy/AdvReac Type Severity Reaction Status Date / Time codeine Allergy Intermediate RASH Verified 01/07/19 20:43 amoxicillin Allergy Unknown UNKNOWN Verified 01/07/19 20:43 mivacurium Allergy Unknown UNKNOWN Verified 08/31/16 08:16 neomycin Allergy Unknown ? RASH Verified 01/07/19 20:43 Sulfa (Sulfonamide Allergy Unknown BODY RASH, Verified 01/07/19 20:43 Antibiotics) YEAST INFECTIONS simvastatin AdvReac Unknown gi Verified 01/07/19 20:43 bleed/distress Home Medications Home Medications Medication Instructions Recorded Confirmed Type Lactobacillus acidophilus 1.5 mg 1,000 mmu cells PO DAILY #30 cap 10/11/18 01/07/19 Rx (250 million cell) capsule duloxetine 30 mg capsule,delayed 30 mg PO DAILY #30 cap 10/11/18 01/07/19 Rx release hydrocortisone 2.5 % topical cream [address] DAILY PRN #30 gm 10/11/18 01/07/19 Rx with perineal applicator lisinopril 10 mg tablet 10 mg PO DAILY #30 tab 10/11/18 01/07/19 Rx pantoprazole 40 mg tablet,delayed 40 mg PO DAILY #60 tab 10/11/18 01/07/19 Rx release atenolol 100 mg tablet 100 mg PO DAILY #90 tab 12/20/18 01/07/19 Rx triamcinolone acetonide 1 appln TOP TID PRN 01/07/19 01/07/19 History cyanocobalamin (vitamin B-12) 1,000 mcg PO DAILY #30 cap 01/08/19 Rx folic acid 1 mg PO DAILY #30 tab 01/08/19 Rx Past Med/Surg History Medical History Chronic kidney disease, stage III (moderate) (Acute) Fatty liver (Acute) GERD without esophagitis (Acute) Leukocytosis (Acute) Vitamin D deficiency (Acute) Elevated fasting glucose Elevated serum creatinine History of blood clots History of chest pain History of fatty infiltration of liver History of migraine headaches History of urinary tract infection Need for Tdap vaccination Family History Sister Depression Father Kidney stones Lung cancer Seizures Social History Preferred Language: Tajik Communication Ability: Effective Visual Impairment: No Limitations Hearing Ability: Normal Training And Development Coordinator Required: No Beliefs That Will Affect Care: None marital status: Current Living Situation: Family Current Living Situation Comment: WITH TWIN SISTER AND HER BROTHER IN LAW current occupational status: retired Feels Safe at Home: Yes Smoking Status: Former smoker Age Started Using Tobacco: 33 ; Age Quit Using Tobacco: 64 ; Second Hand Exposure: No ; Hx Alcohol Use: Yes Alcohol type: hard liquor Hx Substance Use: No Dental Care, Regularly: Yes Physical Activity Frequency Comment: LIMITED BY PHYSICAL CONDITION Review of Systems Review of Systems: All systems reviewed & are unremarkable except as noted in HPI & below Physical Exam Constitutional: WD/WN, vitals as above Intoxicated Eyes: PERRL, conjunctivae normal, anicteric sclerae ENMT: external ear and nose normal, oropharynx normal Head: Small right forehead scalp hematoma Superficial laceration below R eye Respiratory: normal respiratory effort, lungs clear to auscultation Cardiovascular: RRR, no murmur, no edema Gastrointestinal (Abdomen): normal bowel sounds, soft, nontender, no hepatosplenomegaly Skin: no rashes, warm and dry Neurologic: No focal deficits, CN2-12 grossly intact Psychiatric: A+Ox3, euthymic affect Results & Data Vital Signs (Past 12 Hours) Vital Signs Temp Pulse Resp BP Pulse Ox 01/07/19 18:01 94 01/07/19 17:17 36.5 C 70 21 122/65 93 Laboratory Results Laboratory Results - last 24 hr 01/07/19 01/07/19 01/07/19 18:18 18:18 18:18 WBC 9.23 RBC 3.97 L Hgb 11.8 L Hct 36.3 L MCV 91.4 MCH 29.7 MCHC 32.5 RDW Std Deviation 46.4 H RDW Coeff of [place] 13.9 Plt Count 357 MPV 9.3 Immature Gran % (Auto) 0.3 Neut % (Auto) 68.5 Lymph % (Auto) 22.9 [place] % (Auto) 6.8 Eos % (Auto) 1.2 Baso % (Auto) 0.3 Immature Gran # (Auto) 0.03 H Neut # (Auto) 6.32 Lymph # (Auto) 2.11 [place] # (Auto) 0.63 H Eos # (Auto) 0.11 Baso # (Auto) 0.03 Sodium 137 Potassium 3.6 Chloride 104 Carbon Dioxide 24 Anion Gap 8.0 BUN 12 Creatinine 1.31 H Est Cr Clr Drug Dosing 36.1 Est GFR ( Amer) 44.5 Est GFR (Non-Af Amer) 38.4 BUN/Creatinine Ratio 9.2 L Glucose 105 H Calcium 8.7 Magnesium 2.0 Total Bilirubin 0.2 AST 20 ALT 20 Alkaline Phosphatase 74 Troponin I < 0.015 Total Protein 7.0 Albumin 3.5 Globulin 3.5 Albumin/Globulin Ratio 1.0 TSH 2.730 Urine Color Urine Appearance Urine pH Ur Specific [place] Urine Protein Urine Glucose (UA) Urine Ketones Urine Blood Urine Nitrite Urine Bilirubin Urine Urobilinogen Ur Leukocyte Esterase Urine WBC (Auto) Urine RBC (Auto) U Hyaline Cast (Auto) U Epithel Cells (Auto) Urine Bacteria (Auto) Ethyl Alcohol mg/dL 231.6 H 01/07/19 18:50 WBC RBC Hgb Hct MCV MCH MCHC RDW Std Deviation RDW Coeff of [place] Plt Count MPV Immature Gran % (Auto) Neut % (Auto) Lymph % (Auto) [place] % (Auto) Eos % (Auto) Baso % (Auto) Immature Gran # (Auto) Neut # (Auto) Lymph # (Auto) [place] # (Auto) Eos # (Auto) Baso # (Auto) Sodium Potassium Chloride Carbon Dioxide Anion Gap BUN Creatinine Est Cr Clr Drug Dosing Est GFR ( Amer) Est GFR (Non-Af Amer) BUN/Creatinine Ratio Glucose Calcium Magnesium Total Bilirubin AST ALT Alkaline Phosphatase Troponin I Total Protein Albumin Globulin Albumin/Globulin Ratio TSH Urine Color Yellow Urine Appearance Clear Urine pH 6.5 Ur Specific [place] 1.012 Urine Protein Negative Urine Glucose (UA) Negative Urine Ketones Negative Urine Blood Negative Urine Nitrite Negative Urine Bilirubin Negative Urine Urobilinogen Negative Ur Leukocyte Esterase Trace H Urine WBC (Auto) 1-5 Urine RBC (Auto) 0-4 U Hyaline Cast (Auto) 0 U Epithel Cells (Auto) 10-20 H Urine Bacteria (Auto) 1+ H Ethyl Alcohol mg/dL Medications Administered Current Inpatient Medications Sodium Chloride (Nss 1000ml) 1,000 mls @ 125 mls/hr IV .Q8H TAVARES Stop: 01/08/19 01:44 Last Admin: 01/07/19 18:46 Dose: 125 mls/hr Documented by: Code Status & VTE Plan Code Status FULL CODE Supervising Physician Co-Signing Physician Notes Attending addendum: I have physically seen this patient, have supervised the medical residents activities, and agree with the H&P unless as otherwise noted. Assessment and Plan: Alcohol intoxication/closed head injury- X-rays negative as noted above. CT head and spine negative. Alcohol withdrawal protocol. IV fluids. EKG abnormality in lead V2/hypertension- The patient will be admitted to telemetry for serial cardiac enzymes, serial EKG's, cardiac rhythm monitoring and a 2-D echocardiogram with Dopplers. Continue atenolol 100 mg daily with hold parameters. Hold lisinopril. SCOTTIE- Hold lisinopril as noted. Rehydrate with IV fluids as noted. Avoid NSAIDs. Remainder of orders and medications as noted. PG Care Time/CCT Total # of Minutes Spent Total Time Spent with Patient: Total time spent is greater than 50% in coordination of care (as documented) at patient's floor/unit and/or counseling patient: Resident Activity Tracking Resident Involvement: Resident Care Provided Care Provided: Adult Hospital Medicine (1) Closed head injury Encounter type: initial encounter Qualified Code(s): S09.90XA - Unspecified injury of head, initial encounter
[2019-01-07] MEDS ORDERED: LORazepam 1 MG/2 ML VIAL IV PRN (21:43)
[2019-01-07] MEDS ORDERED: ACETAMINOPHEN 325 MG TAB PO PRN (21:43)
[2019-01-07] MEDS ORDERED: SODIUM CHLORIDE 0.9% 500 ML IV SCH (21:43)
[2019-01-07] MEDS ORDERED: HYDROCORTISONE HC 2.5% CRM 30GM TUBE EXT PRN (21:43)
[2019-01-07] MEDS ORDERED: ONDANSETRON INJ 2 MG/ML 2 ML VIAL IV PRN (21:43)
[2019-01-07] MEDS ORDERED: POLYETHYLENE (MIRALAX) 17 GM PACK PO PRN (21:43)
[2019-01-07] MEDS ORDERED: THIAMINE HCL 100 MG in SYRINGE 9 ML IV ONE (22:00)
[2019-01-07] MEDS ORDERED: FOLIC ACID 1 MG in SYRINGE 9.8 ML IV ONE (22:00)
[2019-01-07] MEDS: POTASSIUM CHLORIDE / WTR 10 MEQ/100 ML PLCT IV SCH ×2 (22:21→23:22)
[2019-01-07] MEDS: SODIUM CHLORIDE 0.9% 1000ML 1,000 ML IV SCH (22:24)
[2019-01-07] MEDS: TRIAMCINOLONE ACET 0.025% CR 15 GM TUBE TOP SCH (22:25)
[2019-01-08] MEDS: POTASSIUM CHLORIDE / WTR 10 MEQ/100 ML PLCT IV SCH ×2 (00:12→01:11)
--- NOTE | 2019-01-08 00:13 | Emergency Department Note ---
Entered by Annie Julien acting as a scribe for Rajesh العلي MD ED Provider Note CHIEF COMPLAINT: Fall HISTORY OF PRESENT ILLNESS: The patient is an 78 year old female who presents to the Emergency Room with complaints of an episode of a fall starting starting earlier today. The nurse reports that the patient fell CAFETERIA COOK. She states that it is unknown where the patient fell. She explains that the patient drank 6 to 7 rum and cokes today. She notes that EMS reported the patient was vomiting and incontinent of her urine and stool CAFETERIA COOK. She adds that that EMS reports that they gave her Zofran CAFETERIA COOK. The patients family reports that the patient fell in her kitchen and landed on her head but that they didnt see her fall. They state that the patient is normally forgetful but was at her baseline earlier today. They explain that the patient drinks alcohol regularly. They note that the patient follows with [facility]. Pt denies LOC, headache, fevers, chills, diaphoresis, visual changes, neck pain, chest pain, breathing difficulties, abdominal pain, back pain, melena, hematochezia, urinary symptoms, numbness, lymphadenopathy, rash, or other complaints. The HPI and ROS are limited secondary to baseline confusion and alcohol. REVIEW OF SYSTEMS: The HPI and ROS are limited secondary to baseline confusion and alcohol. PMHx/PSHx: See past medical and surgical history list. SOCIAL HISTORY: Patient lives at home with sister and brother in law. . Retired. PHYSICAL EXAM: GENERAL: Awake, alert, mildly intoxicated-appearing, in no distress. HENT: Normocephalic. Oropharynx unremarkable. Right forehead hematoma. Right cheek abrasion. EYES: PERRL. Normal conjunctiva. Sclera non-icteric. NECK: Inspection normal. Non-tender. Supple. No nuchal rigidity. FROM. No mass es. RESPIRATORY: Clear to auscultation. No wheezes. No rales. Normal respiratory effort. CARDIAC: Normal rate. Normal rhythm. No murmurs. No rubs. Extremities warm and well perfused. Pulses equal. No JVD. GI: Soft, non-distended. No tenderness to palpation. No rebound or guarding. No masses. RECTAL: Deferred. MUSCULOSKELETAL: Chest examination reveals no tenderness. The back is symmetrical on inspection without obvious abnormality. There is no CVA tenderness to palpation. No joint edema. Mild abrasion to the anterior aspect of both knee. Both knees are non-tender. Left hip tenderness on palpation and ROM. LOWER EXTREMITIES: Calves are equal size bilaterally and non-tender. No edema. No discoloration. NEURO: Altered sensorium. No sensory or motor deficits noted. SKIN: No rash or jaundice noted. EMERGENCY DEPARTMENT COURSE: 1734: Past medical records reviewed. The patient was evaluated in room C7, and a complete history and physical examination were performed. 1820: I reevaluated the patient at this time. 1907: I reevaluated the patient at this time. 1919: I discussed the patients case with Dr. Antonia ORDAZ hospitalist. He will evaluate the patient for further management. MEDICAL DECISION MAKING: C7 Prior records/ancillary studies reviewed and summarized above. Nursing notes reviewed and agree them. Additional history obtained from family. The patient's history was concerning for altered mental status, alcohol consumption, and head injury. Differential diagnosis: Etiologies such as SDH, SAH, skull fracture, concussion, infection, hypoglycemia, electrolyte abnormalities, cardiac sources, intracerebral event, toxicologic, neurologic, as well as others were entertained. Physical examination: As above. The patient was intoxicated appearing. She had a right forehead hematoma. ER treatment provided: IV Lock Normal saline hydration IV Tylenol Monitoring on reassessment the patient felt better. Diagnostics interpretation by me: ECG: No acute ischemic change. The labs revealed an unremarkable CBC and chemistry panel. Urinalysis unremar kable. The patient's blood alcohol level was significantly elevated at 231 mg/dL. Imaging studies: CT scan of the head was negative for intracranial injury or fracture. Hematoma noted. Cervical spine imaging negative. Left hip imaging negative. The patient has altered mental status. She has head injury. She has significant alcohol intoxication. Vital signs are stable at this point. The p atient will need monitoring to allow her intoxication to clear. I discussed this with patient and her family. Family was in agreement. Consultation: A consultation was placed with the [facility] hospitalist. The case was discussed and diagnostics were reviewed. The patient was evaluated in the ER for further treatment. IMPRESION: Altered mental status, Closed head injury, Traumatic hematoma of forehead, Fall, Alcohol intoxication PLAN: Being Evaluated by Hospitalist The scribe's documentation has been prepared under my direction and personally reviewed by me in its entirety. I confirm that the note above accurately reflects all work, treatment, procedures, and medical decision making performed by me. Impression & Plan Altered mental status, Closed head injury, Traumatic hematoma of forehead, Fall, Alcohol intoxication Past Med/Surg History Medical History Chronic kidney disease, stage III (moderate) (Acute) Fatty liver (Acute) GERD without esophagitis (Acute) Leukocytosis (Acute) Vitamin D deficiency (Acute) Elevated fasting glucose Elevated serum creatinine History of blood clots History of chest pain History of fatty infiltration of liver History of migraine headaches History of urinary tract infection Need for Tdap vaccination Family History Sister Depression Father Kidney stones Lung cancer Seizures Social History Preferred Language: Guinean Communication Ability: Effective Visual Impairment: No Limitations Hearing Ability: Normal Diorama Model Maker Required: No Beliefs That Will Affect Care: None marital status: Current Living Situation: Family Current Living Situation Comment: WITH TWIN SISTER AND HER BROTHER IN LAW current occupational status: retired Other Information That Helps Us Care for You: No Feels Safe at Home: Yes Safety Concerns: Feels Safe At This Time Smoking Status: Former smoker Age Started Using Tobacco: 33 ; Age Quit Using Tobacco: 64 ; Do You Dip or Chew Tobacco: No ; Second Hand Exposure: No ; Hx Alcohol Use: Yes Alcohol type: hard liquor Hx Substance Use: No Dental Care, Regularly: Yes Physical Activity Frequency Comment: LIMITED BY PHYSICAL CONDITION Results & Data Vital Signs Vital Signs - 24 hr 01/07/19 17:17 01/07/19 17:35 01/07/19 18:00 Temperature 36.5 C Temperature Source Oral Sepsis Recent Fever Within 48 Hours No Sepsis New/Unexplained Change in Mental Status No Sepsis Action Taken by Nursing No Action Required Pulse Rate 70 76 69 Pulse Rate from SpO2 Sensor 75 69 Pulse Rhythm Regular Pulse Strength Normal Respiratory Rate 21 19 18 Respiratory Effort / Characteristics Non-Labored Spontaneous Respiratory Depth Normal Respiratory Pattern Regular Blood Pressure 122/65 115/62 122/65 Blood Pressure Mean 84 79 84 Blood Pressure Position Lying Pulse Oximetry 93 92 94 Oxygen Delivery Method Room Air 01/07/19 18:01 01/07/19 18:30 01/07/19 19:00 Temperature Temperature Source Sepsis Recent Fever Within 48 Hours Sepsis New/Unexplained Change in Mental Status Sepsis Action Taken by Nursing Pulse Rate 70 74 Pulse Rate from SpO2 Sensor 72 73 Pulse Rhythm Pulse Strength Respiratory Rate 19 17 Respiratory Effort / Characteristics Respiratory Depth Respiratory Pattern Blood Pressure 104/56 L 117/58 L Blood Pressure Mean 72 77 Blood Pressure Position Pulse Oximetry 94 94 92 Oxygen Delivery Method Room Air 01/07/19 19:30 01/07/19 20:00 01/07/19 20:30 Temperature Temperature Source Sepsis Recent Fever Within 48 Hours Sepsis New/Unexplained Change in Mental Status Sepsis Action Taken by Nursing Pulse Rate 70 75 77 Pulse Rate from SpO2 Sensor 71 Pulse Rhythm Pulse Strength Respiratory Rate 19 17 22 Respiratory Effort / Characteristics Respiratory Depth Respiratory Pattern Blood Pressure 116/62 103/80 Blood Pressure Mean 80 87 Blood Pressure Position Pulse Oximetry 94 Oxygen Delivery Method 01/07/19 20:31 01/07/19 21:00 Temperature Temperature Source Sepsis Recent Fever Within 48 Hours Sepsis New/Unexplained Change in Mental Status Sepsis Action Taken by Nursing Pulse Rate 74 Pulse Rate from SpO2 Sensor Pulse Rhythm Pulse Strength Respiratory Rate 14 Respiratory Effort / Characteristics Respiratory Depth Respiratory Pattern Blood Pressure 112/55 L Blood Pressure Mean 74 Blood Pressure Position Pulse Oximetry Oxygen Delivery Method Room Air Home Medications Current Medication List: was personally reviewed by me Laboratory Data Attestation: I reviewed the patient's lab results. Result diagrams: 01/07/19 18:18 01/07/19 18:18 Lab Results 01/07/19 01/07/19 01/07/19 Range/Units 18:18 18:18 18:18 WBC 9.23 (4.8-10.8) K/uL RBC 3.97 L (4.2-5.4) M/uL Hgb 11.8 L (12.0-16.0) g/dL Hct 36.3 L (37-47) % MCV 91.4 (80-100) fL MCH 29.7 (25-34) pg MCHC 32.5 (32-36) g/dL RDW Std Deviation 46.4 H (36.4-46.3) fL RDW Coeff of Maico 13.9 (11.5-14.5) % Plt Count 357 (130-400) K/uL MPV 9.3 (7.4-10.4) fL Immature Gran % (Auto) 0.3 % Neut % (Auto) 68.5 % Lymph % (Auto) 22.9 % Sanders % (Auto) 6.8 % Eos % (Auto) 1.2 % Baso % (Auto) 0.3 % Immature Gran # (Auto) 0.03 H (0.00-0.02) K/uL Neut # (Auto) 6.32 (1.4-6.5) K/uL Lymph # (Auto) 2.11 (1.2-3.4) K/uL Sanders # (Auto) 0.63 H (0.11-0.59) K/uL Eos # (Auto) 0.11 (0-0.5) K/uL Baso # (Auto) 0.03 (0-0.2) K/uL Sodium 137 (136-145) mmol/L Potassium 3.6 (3.5-5.1) mmol/L Chloride 104 (98-107) mmol/L Carbon Dioxide 24 (21-32) mmol/L Anion Gap 8.0 (3-11) BUN 12 (7-18) mg/dl Creatinine 1.31 H (0.6-1.2) mg/dl Est Cr Clr Drug Dosing 36.1 ml/min Est GFR ( Amer) 44.5 Est GFR (Non-Af Amer) 38.4 BUN/Creatinine Ratio 9.2 L (10-20) Glucose 105 H (70-99) mg/dl Calcium 8.7 (8.5-10.1) mg/dl Magnesium 2.0 (1.8-2.4) mg/dl Total Bilirubin 0.2 (0.2-1) mg/dl AST 20 (15-37) U/L ALT 20 (12-78) U/L Alkaline Phosphatase 74 (45-117) U/L Troponin I < 0.015 (0-0.045) ng/ml Total Protein 7.0 (6.4-8.2) gm/dl Albumin 3.5 (3.4-5.0) gm/dl Globulin 3.5 (2.5-4.0) gm/dl Albumin/Globulin Ratio 1.0 (0.9-2) TSH 2.730 (0.300-4.500) uIu/ml Urine Color Urine Appearance (Clear) Urine pH (4.5-7.5) Ur Specific Lodge (1.000-1.030) Urine Protein (Negative) Urine Glucose (UA) (Negative) Urine Ketones (Negative) Urine Blood (Negative) Urine Nitrite (Negative) Urine Bilirubin (Negative) Urine Urobilinogen (Negative) Ur Leukocyte Esterase (Negative) Urine WBC (Auto) (0-5) /hpf Urine RBC (Auto) (0-4) /hpf U Hyaline Cast (Auto) (0-5) /lpf U Epithel Cells (Auto) (0-5) /lpf Urine Bacteria (Auto) (Negative) Ethyl Alcohol mg/dL 231.6 H (0-3) mg/dl 01/07/19 Range/Units 18:50 WBC (4.8-10.8) K/uL RBC (4.2-5.4) M/uL Hgb (12.0-16.0) g/dL Hct (37-47) % MCV (80-100) fL MCH (25-34) pg MCHC (32-36) g/dL RDW Std Deviation (36.4-46.3) fL RDW Coeff of Maico (11.5-14.5) % Plt Count (130-400) K/uL MPV (7.4-10.4) fL Immature Gran % (Auto) % Neut % (Auto) % Lymph % (Auto) % Sanders % (Auto) % Eos % (Auto) % Baso % (Auto) % Immature Gran # (Auto) (0.00-0.02) K/uL Neut # (Auto) (1.4-6.5) K/uL Lymph # (Auto) (1.2-3.4) K/uL Sanders # (Auto) (0.11-0.59) K/uL Eos # (Auto) (0-0.5) K/uL Baso # (Auto) (0-0.2) K/uL Sodium (136-145) mmol/L Potassium (3.5-5.1) mmol/L Chloride (98-107) mmol/L Carbon Dioxide (21-32) mmol/L Anion Gap (3-11) BUN (7-18) mg/dl Creatinine (0.6-1.2) mg/dl Est Cr Clr Drug Dosing ml/min Est GFR ( Amer) Est GFR (Non-Af Amer) BUN/Creatinine Ratio (10-20) Glucose (70-99) mg/dl Calcium (8.5-10.1) mg/dl Magnesium (1.8-2.4) mg/dl Total Bilirubin (0.2-1) mg/dl AST (15-37) U/L ALT (12-78) U/L Alkaline Phosphatase (45-117) U/L Troponin I (0-0.045) ng/ml Total Protein (6.4-8.2) gm/dl Albumin (3.4-5.0) gm/dl Globulin (2.5-4.0) gm/dl Albumin/Globulin Ratio (0.9-2) TSH (0.300-4.500) uIu/ml Urine Color Yellow Urine Appearance Clear (Clear) Urine pH 6.5 (4.5-7.5) Ur Specific Lodge 1.012 (1.000-1.030) Urine Protein Negative (Negative) Urine Glucose (UA) Negative (Negative) Urine Ketones Negative (Negative) Urine Blood Negative (Negative) Urine Nitrite Negative (Negative) Urine Bilirubin Negative (Negative) Urine Urobilinogen Negative (Negative) Ur Leukocyte Esterase Trace H (Negative) Urine WBC (Auto) 1-5 (0-5) /hpf Urine RBC (Auto) 0-4 (0-4) /hpf U Hyaline Cast (Auto) 0 (0-5) /lpf U Epithel Cells (Auto) 10-20 H (0-5) /lpf Urine Bacteria (Auto) 1+ H (Negative) Ethyl Alcohol mg/dL (0-3) mg/dl Administered Medications Potassium Chloride (K Fer / Wtr) 10 meq in 100 mls @ 100 mls/hr IV Q1H TAVARES Stop: 01/08/19 01:42 Last Admin: 01/08/19 00:12 Dose: 100 mls/hr Documented by: [id number] Infusion: 01/08/19 00:12 Dose: 100 mls/hr Documented by: [id number] Admin: 01/07/19 23:22 Dose: 100 mls/hr Documented by: [id number] Infusion: 01/07/19 23:21 Dose: 100 mls/hr Documented by: [id number] Admin: 01/07/19 22:21 Dose: 100 mls/hr Documented by: [id number] Sodium Chloride (Nss 1000ml) 1,000 mls @ 100 mls/hr IV .Q10H TAVARES Stop: 02/06/19 21:59 Last Admin: 01/07/19 22:24 Dose: 100 mls/hr Documented by: [id number] Triamcinolone Acetonide (Kenalog 0.025%) 1 appln TOP TID TAVARES Stop: 02/06/19 21:42 Last Admin: 01/07/19 22:25 Dose: Not Given Documented by: [id number] Discontinued Medications Acetaminophen (Ofirmev) 1,000 mg in 100 mls @ 400 mls/hr IV NOW STA Stop: 01/07/19 17:50 Last Infusion: 01/07/19 20:35 Dose: 0 mls/hr Documented by: [id number] Admin: 01/07/19 18:45 Dose: 400 mls/hr Documented by: [id number] Sodium Chloride (Nss 1000ml) 1,000 mls @ 125 mls/hr IV .Q8H TAVARES Stop: 01/08/19 01:44 Last Infusion: 01/07/19 21:52 Dose: 0 mls/hr Documented by: [id number] Infusion: 01/07/19 21:51 Dose: 125 mls/hr Documented by: [id number] Admin: 01/07/19 18:46 Dose: 125 mls/hr Documented by: [id number] Sodium Chloride (Nss) 500 mls @ 100 mls/hr IV .Q5H TAVARES Stop: 02/06/19 21:42 Last Infusion: 01/07/19 22:36 Dose: 0 mls/hr Documented by: [id number] Infusion: 01/07/19 22:35 Dose: 100 mls/hr Documented by: [id number] Infusion: 01/07/19 22:26 Dose: 100 mls/hr Documented by: [id number] Infusion: 01/07/19 22:26 Dose: 0 mls/hr Documented by: [id number] Admin: 01/07/19 21:51 Dose: 100 mls/hr Documented by: [id number] Folic Acid 1 mg/ Syringe 10 mls @ 5 mls/min IV ONE ONE Stop: 01/07/19 22:01 Last Admin: 01/07/19 22:24 Dose: 5 mls/min Documented by: [id number] Thiamine HCl 100 mg/ Syringe 10 mls @ 2 mls/min IV ONE ONE Stop: 01/07/19 22:04 Last Admin: 01/07/19 22:24 Dose: 2 mls/min Documented by: [id number] Imaging Data Radiologist's Impression: Radiology results as stated below per my review and the radiologist's interpretation: CT head/brain wo con CLINICAL HISTORY: 78 years-old Female with fall, forehead hematoma. Acute head injury status post fall TECHNIQUE: Multiple axial CT images of the head were obtained without contrast. A dose lowering technique was utilized adhering to the principles of ALARA. COMPARISON: None. FINDINGS: No acute intracranial hemorrhage, midline shift, intracranial mass, hydrocephalus, territorial ischemia or abnormal extra-axial collection. Age- related involutional changes. Mild degree of scattered white matter hypodensities suggest chronic microvascular ischemic disease. Senescent calcifications of the lentiform nuclei. Cerebral vascular calcifications noted. The calvarium is intact. 2.2 x 0.5 cm right forehead scalp hematoma. Prior bilateral cataract repair. The paranasal sinuses, mastoid air cells, and middle ear cavities are clear. IMPRESSION: 1. No acute intracranial abnormality or calvarial fracture. 2. Small right forehead scalp hematoma. The above report was generated using voice recognition software. It may contain grammatical, syntax or spelling errors. Electronically signed by: Elias Lockhart M.D. 01/07/2019 5:[address] cervical spine wo con CLINICAL HISTORY: 78 years-old Female with fall. Acute head and neck injury status post fall COMPARISON: Head CT of same day. TECHNIQUE: Multiple axial CT images of the cervical spine were obtained without contrast. A dose lowering technique was utilized adhering to the principles of ALARA. FINDINGS: Mildly demineralized appearance the bones. Straightening of the normal cervical lordosis. Severe degenerative changes at C1-C2. Multilevel disc space narrowing, moderate at C4-C5, C5-C6 and C6-C7. Moderate multilevel facet arthrosis. Multilevel posterior disc osteophyte complex formation, most pronounced at C3- C4. Calcifications of the nuchal ligament are noted. No acute fracture or subluxation identified. Mastoid air cells appear clear. Evaluation of the centr al canal and neuroforamina is better assessed by MRI. Multilevel foraminal narrowing is noted. No definite high-grade central canal stenosis. Pleural parenchymal calcifications of the left greater than right lung apices. No pneumothorax. Soft tissues are unremarkable. Medial course of the bilateral common carotid arteries. IMPRESSION: No acute cervical spine fracture or subluxation. The above report was generated using voice recognition software. It may contain grammatical, syntax or spelling errors. Electronically signed by: Elias Lockhart M.D. 01/07/2019 6:02 PM XR chest 1V portable CLINICAL HISTORY: 78 years-old Female presenting with weakness. TECHNIQUE: Portable semiupright AP view of the chest was obtained. COMPARISON: 11/25/2014. FINDINGS: Cardiac silhouette enlarged. No focal opacity. No large effusion or pneumothorax. Osseous structures normal. Upper abdomen normal. IMPRESSION: 1. Cardiomegaly. No other convincing evidence of acute cardiopulmonary disease. Electronically signed by: Erick Astorga M.D. 01/07/2019 6:13 PM XR hip LT 2-3V w pelvis CLINICAL HISTORY: 78 years-old Female presenting with fall. TECHNIQUE: Single frontal pelvis and frontal and frog-leg lateral views of the left hip were obtained. COMPARISON: Correlation made to CT from 2016. FINDINGS: Sacroiliac joints, pubic symphysis, and bilateral hip joints congruent. Mild joint space loss in the bilateral hips. Bony pelvis intact. The left hip joint specifically demonstrates an intact left femoral neck. No radiographic soft tissue abnormality. IMPRESSION: No acute osseous injury. Electronically signed by: Erick Astorga M.D. 01/07/2019 6:22 PM ECG Data Attestation: I personally reviewed and interpreted this ECG as follows: Indication: weakness and other (Fall) Rate (beats per minute): 67 Rhythm: normal sinus Findings: + Q waves (Septal Q waves. ) and + T-wave inversion (in anteriorly leads.) Comparison ECG Date: from (07/31/16) Change: the following changes noted (Inverted T waves have replaced a nonspecific ST change anteriorly.) Blood Pressure Blood Pressure Findings: Elevated blood pressure Blood Pressure Disposition: further management by hospitalist Discharge Plan Visit Data *Final* Discharge Date/Time: 01/07/19 21:00 Chief Complaint: Fall Stated Complaint: FALL, LACERATION BELOW EYE, HEMATOMA TO FOREHEAD, ED Provider: Rajesh العلي Discharge Problem: Altered mental status, Closed head injury, Traumatic hematoma of forehead, Fall, Alcohol intoxication Patient Disposition: Admitted As Inpatient Discharge Instructions Interventions: ED Discharge Assessment Last Done: 01/07/19 21:00 Discharge Problem: Altered mental status Qualifiers: Altered mental status type: unspecified Qualified Code(s): R41.82 - Altered mental status, unspecified Closed head injury Qualifiers: Encounter type: initial encounter Qualified Code(s): S09.90XA - Unspecified injury of head, initial encounter Traumatic hematoma of forehead Qualifiers: Encounter type: initial encounter Qualified Code(s): S00.83XA - Contusion of other part of head, initial encounter Fall Qualifiers: Encounter type: initial encounter Qualified Code(s): W19.XXXA - Unspecified fall, initial encounter Alcohol intoxication Qualifiers: Complication of substance-induced condition: uncomplicated Qualified Code(s): F10.920 - Alcohol use, unspecified with intoxication, uncomplicated The scribe's documentation has been prepared under my direction and personally reviewed by me in its entirety. I confirm that the note above accurately reflects all work, treatment, procedures, and medical decision making performed by me.
[2019-01-08] MEDS: SODIUM CHLORIDE 0.9% 1000ML 1,000 ML IV SCH (02:18)
[2019-01-08 07:49] LABS: Albumin Level 3.2 gm/dl (3.4-5.0); BUN Creatinine Ratio 9.6 (10-20); Bilirubin,Total 0.3 mg/dl (0.2-1); Calcium 8.5 mg/dl (8.5-10.1); Creatinine Clr Calc Pharmacy 46.2 ml/min; Est GFR (African American) 56.8; Globulin 3.3 gm/dl (2.5-4.0); Potassium 4.3 mmol/L (3.5-5.1); Total Protein 6.5 gm/dl (6.4-8.2)
[2019-01-08] MEDS ORDERED: PERFLUTREN LIPID MICROSPHERE (DEFINITY) IV ONE (07:52)
[2019-01-08] MEDS: TRIAMCINOLONE ACET 0.025% CR 15 GM TUBE TOP SCH ×2 (08:34→08:45)
[2019-01-08 08:55] LABS: Folate (Folic Acid) 5.26 ng/ml (>5.38)
[2019-01-08] MEDS ORDERED: CHOLECALCIFEROL 1,000 UNITS TAB PO SCH (09:00)
[2019-01-08] MEDS ORDERED: THIAMINE HCL 100 MG in SYRINGE 9 ML IV SCH (09:00)
[2019-01-08] MEDS ORDERED: ATENOLOL 50 MG TABLET PO SCH (09:00)
[2019-01-08] MEDS ORDERED: LACTOBACILLUS ACIDOPHILUS (FLORANEX) TAB PO SCH (09:00)
[2019-01-08] MEDS ORDERED: PANTOprazole 40 MG TAB PO SCH (09:00)
[2019-01-08] MEDS ORDERED: FOLIC ACID 1 MG in SYRINGE 9.8 ML IV SCH (09:00)
[2019-01-08] MEDS ORDERED: DULOXETINE HCL 30 MG CAP PO SCH (09:00)
--- NOTE | 2019-01-08 18:23 | Discharge Summary ---
Date of Service January 08, 2019 Admission HPI Per Admitting Provider 78 y/o F with PMH CKD III, HTN, HLD, Anxiety, GERD presents to [facility] after fall at home. Per sister, pt had 7 rum and cokes today and tripped in kitchen landing face forward and hitting her head. Normally, pt drinks 2-3 times per week and has 2-3 rum and cokes per session. Pt denied any LOC, preceding lightheadedness, dizziness, CP, palpitations, SOB. Some N/V after recovery, but unsure how much. Pt not on any blood thinners. Pt with no other acute concerns or complaints at present. ER Course: CT C-Spine: No acute cervical spine fracture or subluxation. Head CT: No acute intracranial abnormality or calvarial fracture. Hip/Pelvis XR: No acute osseous injury. EKG: Inverted T wave anterior lead V2 Labs: Cr 1.31, Alcohol 231. Trops neg x1. Otherwise unremarkable. Pt given IV Ofirmev, IVF. Surg Hx: Hysterectomy, Appendectomy Social: Alcohol as above. Denies Tobacco/Illicit Drug Use. Pt lives at home with sister and [id number]. Principal Diagnosis Alcohol intoxication and fall Discharge Exam Constitutional WD/WN, vitals as above Eyes EOM intact bilaterally; no conjunctival abnormality ENMT external ear and nose normal, oropharynx normal Neck trachea midline, no thyromegaly normal visual inspection Respiratory normal respiratory effort, lungs clear to auscultation no respiratory distress Cardiovascular RRR, no murmur, no edema Gastrointestinal (Abdomen) Inspection/Auscultation: abdomen normal to inspection; abdomen not distended Musculoskeletal no cyanosis or clubbing, extremities motor strength 5/5 Skin + ecchymosis (Right forehead) Neurologic moves all extremities and awake Psychiatric Orientation: alert, oriented to person and cooperative Discharge Data Allergies Allergy/AdvReac Type Severity Reaction Status Date / Time codeine Allergy Intermediate RASH Verified 01/07/19 20:43 amoxicillin Allergy Unknown UNKNOWN Verified 01/07/19 20:43 mivacurium Allergy Unknown UNKNOWN Verified 08/31/16 08:16 neomycin Allergy Unknown ? RASH Verified 01/07/19 20:43 Sulfa (Sulfonamide Allergy Unknown BODY RASH, Verified 01/07/19 20:43 Antibiotics) YEAST INFECTIONS simvastatin AdvReac Unknown gi Verified 01/07/19 20:43 bleed/distress Consultations 01/07/19 19:23 ED Decision to Admit Stat Ordered Studies 01/07/19 17:36 CT cervical spine wo con Stat CT head/brain wo con Stat Hospital Course (1) Closed head injury: 78 y/o F with PMH CKD III, HTN, HLD, Anxiety, GERD presents to [facility] after consuming 7 mixed drinks with subsequent fall at home causing R forehead hematoma, found to have alcohol level of 231. Alcohol Intoxication with Head Injury -C-Spine/Head/Hip/Pelvis Imaging unremarkable - Discussed extensively with patient the need to limit and/or quit drinking. She is pre-contemplative and says that she has "learned something" from this admission, but does not commit/comment on her future drinking. Clearly enjoys going out and drinking with her sister, and recalls to me how much fun it is. It seems that she and her sister both likely have problematic drinking. The patient declined to have me contact her sister or daughter regarding her health status. - B12 & folate were low, likely as a result of poor PO intake. I prescribed both supplements on discharge. HTN Held home lisinopril, but can restart on discharge. - Continued atenolol 100 mg Acute on CKD - Baseline Cr ~1. On admit 1.31 - Likely 2/2 vomiting - Back to baseline on discharge at 1.07. Anxiety - Cont home duloxetine 30 mg GERD - Cont home pantoprazole 40 mg Mild Hypokalemia -K 3.6 on admit/ Likely 2/2 vomiting -repleted with IV K-riders as pt NPO - Back to normal in AM Total Time Total Time Spent Total Time Spent (In Minutes): 23 Discharge Plan Discharge Items Patient Disposition: Home - Self-Care Reason For Visit: ALCOHOL INTOX, FALL W/ HEAD TRAUMA Discharge Diagnosis: Alcohol intoxication, fall Discharge Goals: Decrease discomfort and Improve function Activity: Resume your previous activity Non-emergency contact: Primary Care Provider Call non-emergency contact if: your symptoms worsen and your temperature is above 101 Follow-up/Referrals: Yessenia Cameron DO [Primary Care Provider] - 01/13/19 10:15 am (Please, follow up at Dr. Cameron's office with her associate, Steven SHAH, on SundayJanuary 13 at 10:15 am. *If you need to change this appointment, call their office at [phone].) Diet: Regular Addtl Provider Instructions: Ms. Duffy, You had a fall after having too many alcoholic drinks yesterday. You struck your head on an oven. Fortunately, you did not have any broken bones or bleeding other than a bruise on your forehead. You reported to me that you drink 3-4 drinks every day, and some days have more like 6 drinks. Additionally, you were not sure how much alcohol (liquor) each mixed drink contained. Please drink less than 2 drinks a day (each drink having 1.5 oz. of liquor or less). Do not drink more than 14 drinks in a week. Please never drink and drive. Both your B12 and folate were low, due to your alcohol intake. Please take a B12 and a folic acid supplement. Prescriptions: New cyanocobalamin (vitamin B-12) 1,000 mcg capsule 1,000 mcg PO DAILY Qty: 30 RF: 0 folic acid 1 mg tablet 1 mg PO DAILY Qty: 30 RF: 0 Continued duloxetine 30 mg capsule,delayed release(DR/EC) 30 mg PO DAILY Qty: 30 RF: 0 lisinopril 10 mg tablet 10 mg PO DAILY Qty: 30 RF: 0 pantoprazole 40 mg tablet,delayed release (DR/EC) 40 mg PO DAILY Qty: 60 RF: 0 hydrocortisone [Anusol-HC] 2.5 % cream with perineal applicator 1 appln OR DAILY PRN (Reason: hemorrhoids) Qty: 30 RF: 0 Probiotic Acidophilus 1.5 mg (250 million cell) capsule 1,000 mmu cells PO DAILY Qty: 30 RF: 0 atenolol 100 mg tablet 100 mg PO DAILY Qty: 90 RF: 3 triamcinolone acetonide 0.025 % cream 1 appln TOP TID PRN (Reason: breakouts) RF: 0 Stand-Alone Forms: My [facility] Discharge Orders: Discharge Order (Routine); Ordered 01/08/19 Ordered By: Milad Chang Admission Data Admit Date/Time: 01/07/19 21:06 Attending Provider: Milad Chang Admit Provider: Ulysses Monroe Primary Care Provider: Yessenia Cameron Other Providers: Milad Chang Service: Telemetry Medical Other Interventions: Discharge Summary Assessment (RN) Last Done: 01/08/19 10:46 DC Date/Time DO NOT enter until pt leaves facility: 01/08/19 13:35
[2019-01-13] MEDS ORDERED: ERGOCALCIFEROL 50,000 UNITS CAP PO SCH (09:00)
== END 2019-01-08 13:35 | disposition home or self-care (01) ==
LOC: ED 17:25 → 2N 17:25 → SUATTDRO 21:06

== ENCOUNTER 2019-05-31 11:10 | Inpatient (IN) ==
[2019-05-31] MEDS ORDERED: CEFEPIME 2,000 MG/20 ML VIAL IV STA (11:42)
[2019-05-31] MEDS ORDERED: SODIUM CHLORIDE 0.9% 1000ML 500 ML IV ONE (11:42)
[2019-05-31] MEDS ORDERED: ALBUT/IPRATROP 3MG/0.5MG NEB 3 ML VIAL NEB STA (11:42)
[2019-05-31] MEDS ORDERED: methylPREDNISolone 60 MG in SYRINGE 1 ML IV STA (11:42)
[2019-05-31] MEDS ORDERED: methylPREDNISolone 125 MG/2 ML VIAL ONE (12:01)
[2019-05-31 12:02] LABS: Basophils # (auto) 0.02 K/uL (0-0.2); Basophils % (auto) 0.2 %; Hematocrit (blood only) 40.5 % (37-47); Hemoglobin 12.9 g/dL (12.0-16.0); Immature Granulocytes # (auto) 0.02 K/uL (0.00-0.02); Immature Granulocytes % (auto) 0.2 %; Mean Corpuscular Hgb Conc 31.9 g/dL (32-36); Mean Corpuscular Volume 84.9 fL (80-100); Mean Platelet Volume 9.5 fL (7.4-10.4); Monocytes % (auto) 6.7 %; Neutrophils # (auto) 7.21 K/uL (1.4-6.5); Neutrophils % (auto) 68.9 %; Platelet Count 421 K/uL (130-400); RDW Coefficient of Variation 15.7 % (11.5-14.5); RDW Standard Deviation 48.2 fL (36.4-46.3); Red Blood Count 4.77 M/uL (4.2-5.4); White Blood Count 10.45 K/uL (4.8-10.8)
[2019-05-31 12:14] LABS: Partial Thromboplastin Ratio 0.9; Prothrombin Time 10.3 Seconds (9.0-12.0)
[2019-05-31 12:19] LABS: Alanine Aminotransferase 16 U/L (12-78); Albumin Level 3.5 gm/dl (3.4-5.0); Aspartate Aminotransferase 15 U/L (15-37); BUN Creatinine Ratio 10.4 (10-20); Blood Urea Nitrogen 10 mg/dl (7-18); Calcium 9.4 mg/dl (8.5-10.1); Carbon Dioxide 20 mmol/L (21-32); Chloride 108 mmol/L (98-107); Creatinine Clr Calc Pharmacy 52.4 ml/min; Est GFR (African American) 67.3; Glucose 110 mg/dl (70-99); Magnesium 1.8 mg/dl (1.8-2.4); Potassium 3.2 mmol/L (3.5-5.1); Sodium 139 mmol/L (136-145)
[2019-05-31 12:24] LABS: Albumin Globulin Ratio 0.9 (0.9-2); Alkaline Phosphatase 64 U/L (45-117); Bilirubin,Total 0.5 mg/dl (0.2-1); Globulin 3.7 gm/dl (2.5-4.0); Total Protein 7.2 gm/dl (6.4-8.2); Troponin I < 0.015 ng/ml (0-0.045)
--- NOTE | 2019-05-31 12:24 | XRay Report ---
SINGLE VIEW CHEST CLINICAL HISTORY: Sepsis. FINDINGS: An AP, portable, upright chest radiograph is obtained. No prior studies are available for c omparison at the time of dictation. The cardiomediastinal silhouette is unremarkable. There is minim al bibasilar atelectasis. The lungs and pleural spaces are otherwise clear. No pneumothorax is seen. The skeletal structures are osteopenic. The bony thorax is grossly intact. IMPRESSION: No active disease in the chest. ACT 112: Negative or not required by law. Electronically signed by: Akash Vargas M.D. 05/31/2019 12:23 PM
[2019-05-31 12:33] LABS: Appearance Urine Clear (Clear); Bacteria Urine Automated Negative (Negative); Blood Urine Negative (Negative); Color Urine Dark Yellow; Epithelial Cell Urine Auto >30 /lpf (0-5); Glucose Urine UA Negative (Negative); Ketones Urine 2+ (Negative); Leukocyte Esterase Urine Trace (Negative); Nitrite Urine Negative (Negative); Protein Urine 1+ (Negative); RBC Urine Automated 0-4 /hpf (0-4); Specific Gravity Urine 1.026 (1.000-1.030); Urobilinogen Urine Negative (Negative)
[2019-05-31 12:41] LABS: Influenza A virus by PCR Neg for Influ A (Neg); Influenza B virus by PCR Neg for Influ B (Neg)
[2019-05-31 12:44] LABS: Bilirubin Urine 1+ (Negative)
[2019-05-31 12:49] LABS: Mucus Urine Present (None Prsent)
[2019-05-31] MEDS ORDERED: SODIUM CHLORIDE 0.9% 1000ML 1,000 ML IV ONE (12:49)
--- NOTE | 2019-05-31 16:13 | Emergency Department Note ---
Entered by Maria Eugenia Vasquez acting as a scribe for History of Present Illness General Chief complaint: Respiratory Problems Stated complaint: COLD,COUGH Time Seen by Provider: 05/31/19 11:34 Source: patient and other (nursing staff) History of Present Illness Onset (ago): week(s) 1 Location: chest Pain Consistency: + other (worsening) Maximum Pain Intensity: 0 Quality: + other (respiratory problems) Associated symptoms: + cough, + fever/chills (chills), + rash and + weakness The patient is an 78 year old female who presents to the Emergency Room with complaints of a worsening respiratory problem starting a week ago. The patient states that for the past week she has had an intermittent productive cough, been weak, had trouble breathing, and chills. She states that she has been so weak that she hasnt moved out of bed much. She reports that today her shortness of breath was much worse so her daughter called 911. The patient complains of a red rash on her legs that started out small a week ago and has since spread. She notes that she also has a red, itchy rash around her eyes, nose and upper chest that she has been dealing with for 10 years. She notes that she did get her flu shot this year. The patient denies a history of lung disease and a history of a heart attack. Nursing staff notes that the patient did receive one breathing treatment on the way in. Home Medications Home Medications Medication Instructions Recorded Confirmed Type No Known Home Medications 05/31/19 05/31/19 History Allergies Allergy/AdvReac Type Severity Reaction Status Date / Time No Known Allergies Allergy Unverified 05/31/19 11:29 Past Med/Surg History Medical History (Updated 05/31/19 @ 13:38 by Maria Eugenia Vasquez) No known health problems Family History Other Family history non-contributory Social History Preferred Language: Palauan Communication Ability: Effective [place] Flaker Required: No Beliefs That Will Affect Care: None Current Living Situation: Family Current Living Situation Comment: lives with twin sister current occupational status: retired Other Information That Helps Us Care for You: No Feels Safe at Home: Yes Safety Concerns: Feels Safe At This Time Smoking Status: Former smoker Do You Dip or Chew Tobacco: No ; Second Hand Exposure: No ; Tobacco Cessation Education Requested by Patient: No Hx Alcohol Use: Yes Hx Substance Use: No Review of Systems See HPI for pertinent positives & negatives. and A total of 10 systems reviewed and were otherwise negative Physical Exam Vital Signs Vital Signs - 24 hr 05/31/19 11:17 05/31/19 11:48 05/31/19 12:01 Temperature 36.3 C L Temperature Source Oral Pulse Rate 133 H Pulse Rate [Apical] 109 H 126 H Pulse Rate from SpO2 Sensor Pulse Rhythm Regular Pulse Rhythm [Apical] Regular Regular Respiratory Rate 24 24 25 H Respiratory Effort / Characteristics Short of Breath Short of Breath Respiratory Pattern Blood Pressure 178/97 H Blood Pressure [Left Arm] 152/89 H 142/72 H Blood Pressure Mean 124 Blood Pressure Mean [Left Arm] 110 95 Pulse Oximetry 95 95 92 Oxygen Delivery Method Room Air Room Air Room Air Sepsis Recent Fever Within 48 Hours No Sepsis New/Unexplained Change in Mental Status No Sepsis Action Taken by Nursing No Action Required 05/31/19 12:02 05/31/19 12:33 05/31/19 13:30 Temperature Temperature Source Pulse Rate 120 H Pulse Rate [Apical] 101 H 111 H Pulse Rate from SpO2 Sensor 109 H Pulse Rhythm Pulse Rhythm [Apical] Regular Respiratory Rate 20 21 21 Respiratory Effort / Characteristics Spontaneous Respiratory Pattern Blood Pressure 149/133 H Blood Pressure [Left Arm] 152/83 H Blood Pressure Mean 140 Blood Pressure Mean [Left Arm] 106 Pulse Oximetry 96 93 95 Oxygen Delivery Method Room Air Room Air Sepsis Recent Fever Within 48 Hours Sepsis New/Unexplained Change in Mental Status Sepsis Action Taken by Nursing 05/31/19 14:30 05/31/19 15:00 05/31/19 15:30 Temperature Temperature Source Pulse Rate 114 H 116 H Pulse Rate [Apical] 111 H Pulse Rate from SpO2 Sensor Pulse Rhythm Pulse Rhythm [Apical] Regular Respiratory Rate 23 21 17 Respiratory Effort / Characteristics Spontaneous Respiratory Pattern Regular Blood Pressure 166/83 H 163/83 H Blood Pressure [Left Arm] 167/78 H Blood Pressure Mean 94 132 Blood Pressure Mean [Left Arm] 107 Pulse Oximetry 95 Oxygen Delivery Method Room Air Sepsis Recent Fever Within 48 Hours Sepsis New/Unexplained Change in Mental Status Sepsis Action Taken by Nursing 05/31/19 16:00 05/31/19 16:30 Temperature Temperature Source Pulse Rate 116 H 118 H Pulse Rate [Apical] Pulse Rate from SpO2 Sensor 116 H Pulse Rhythm Pulse Rhythm [Apical] Respiratory Rate 18 20 Respiratory Effort / Characteristics Respiratory Pattern Blood Pressure 174/91 H 170/90 H Blood Pressure [Left Arm] Blood Pressure Mean 118 119 Blood Pressure Mean [Left Arm] Pulse Oximetry 96 Oxygen Delivery Method Room Air Sepsis Recent Fever Within 48 Hours Sepsis New/Unexplained Change in Mental Status Sepsis Action Taken by Nursing GENERAL: Patient is in moderate respiratory distress. HEENT: No acute trauma, normocephalic atraumatic, mucous membranes moist, no nasal congestion, no scleral icterus. NECK: No stridor, no adenopathy, no meningismus, trachea is midline. LUNGS: Increased respiratory rate. Scattered wheezing and scattered crackles. Equal breath sounds. Moderate respiratory distress. HEART: Tachycardic and slightly irregular. No murmurs. ABDOMEN: Soft, nontender, bowel sounds positive, no hernias, no peritonitis. EXTREMITIES: No cyanosis, mild bilateral pedal edema, full range of motion of all the joints without pain or difficulty, no signs for acute trauma. NEUROLOGIC: Oriented x 3, no acute motor or sensory deficits, no focal weakness. SKIN: No jaundice. Erythematous, dry, scaly rash around her eyes, under her nose, and to the mid superior chest. There is a flat erythematous rash to the right anterior leg. No warmth or drainage. Course Course 1136: The patient was evaluated in room A12B. A complete history and physical exam was performed. 1300: I reevaluated the patient and updated her on her test results. I discussed the treatment plan with her. She verbally agrees and understands. 1312: I discussed the patient's case with Dr. Samano- [facility] [place] [facility]. She will evaluate the patient for further managmeent. Administered Medications Discontinued Medications Albuterol (Duoneb) 3 ml NEB NOW STA Stop: 05/31/19 11:43 Last Admin: 05/31/19 12:00 Dose: 3 ml Documented by: [id number] Methylprednisolone 60 mg/ (Syringe) 1.96 mls @ 1.5 mls/min IV NOW STA Stop: 05/31/19 11:43 Last Admin: 05/31/19 12:04 Dose: Not Given Documented by: [id number] Sodium Chloride (Nss 1000ml) 500 mls @ 999 mls/hr IV .Q31M ONE Stop: 05/31/19 12:12 Last Infusion: 05/31/19 12:35 Dose: 0 mls/hr Documented by: [id number] Admin: 05/31/19 12:05 Dose: 999 mls/hr Documented by: [id number] Cefepime HCl (Maxipime) 2,000 mg in 20 mls @ 5 mls/min IV NOW STA; Protocol Stop: 05/31/19 11:45 Last Admin: 05/31/19 12:05 Dose: 5 mls/min Documented by: [id number] Sodium Chloride (Nss 1000ml) 1,000 mls @ 999 mls/hr IV .Q1H1M ONE Stop: 05/31/19 13:49 Last Infusion: 05/31/19 14:34 Dose: 0 mls/hr Documented by: [id number] Admin: 05/31/19 13:10 Dose: 999 mls/hr Documented by: [id number] Methylprednisolone (Solumedrol) Confirm Administered Dose 125 mg .ROUTE .STK-MED ONE Stop: 05/31/19 12:02 Last Admin: 05/31/19 12:04 Dose: 60 mg Documented by: [id number] Critical Care Time Critical Care Time: Yes Total Critical Care Time: 36 I have personally spent 36 minutes of critical care time in the direct management of this patient. This includes bedside care, interpretation of diagnostic studies, and testing, discussion with consultants, patient, and family members, and other required patient management activities. This 36 minutes is in excess of all separately billable procedures. Medical Decision Making Differential Diagnosis Differential diagnoses include influenza, flu like illness, pneumonia, bronchitis, cardiac ischemia, atrial fibrillation, dehydration, VT, CHF, sepsis, UTI, cellulitis, yeast infection. Medical Records Attestation: I reviewed the patient's medical records. Home Medications Current Medication List: was personally reviewed by me Laboratory Data Attestation: I reviewed the patient's lab results. Result diagrams: 05/31/19 11:35 05/31/19 11:35 Lab Results 05/31/19 05/31/19 05/31/19 Range/Units 11:35 11:35 11:35 WBC 10.45 (4.8-10.8) K/uL RBC 4.77 (4.2-5.4) M/uL Hgb 12.9 (12.0-16.0) g/dL Hct 40.5 (37-47) % MCV 84.9 (80-100) fL MCH 27.0 (25-34) pg MCHC 31.9 L (32-36) g/dL RDW Std Deviation 48.2 H (36.4-46.3) fL RDW Coeff of [place] 15.7 H (11.5-14.5) % Plt Count 421 H (130-400) K/uL MPV 9.5 (7.4-10.4) fL Immature Gran % (Auto) 0.2 % Neut % (Auto) 68.9 % Lymph % (Auto) 23.0 % [place] % (Auto) 6.7 % Eos % (Auto) 1.0 % Baso % (Auto) 0.2 % Immature Gran # (Auto) 0.02 (0.00-0.02) K/uL Neut # (Auto) 7.21 H (1.4-6.5) K/uL Lymph # (Auto) 2.40 (1.2-3.4) K/uL [place] # (Auto) 0.70 H (0.11-0.59) K/uL Eos # (Auto) 0.10 (0-0.5) K/uL Baso # (Auto) 0.02 (0-0.2) K/uL PT 10.3 (9.0-12.0) Seconds INR 1.0 (0.9-1.1) APTT 24.0 (21.0-31.0) Seconds PTT Ratio 0.9 Sodium (136-145) mmol/L Potassium (3.5-5.1) mmol/L Chloride (98-107) mmol/L Carbon Dioxide (21-32) mmol/L Anion Gap (3-11) BUN (7-18) mg/dl Creatinine (0.6-1.2) mg/dl Est Cr Clr Drug Dosing ml/min Est GFR ( Amer) Est GFR (Non-Af Amer) BUN/Creatinine Ratio (10-20) Glucose (70-99) mg/dl Lactate (0.4-2.0) mmol/L Calcium (8.5-10.1) mg/dl Magnesium (1.8-2.4) mg/dl Total Bilirubin (0.2-1) mg/dl AST (15-37) U/L ALT (12-78) U/L Alkaline Phosphatase (45-117) U/L Troponin I (0-0.045) ng/ml Total Protein (6.4-8.2) gm/dl Albumin (3.4-5.0) gm/dl Globulin (2.5-4.0) gm/dl Albumin/Globulin Ratio (0.9-2) Procalcitonin < 0.05 (0-0.5) ng/ml Urine Color Urine Appearance (Clear) Urine pH (4.5-7.5) Ur Specific [place] (1.000-1.030) Urine Protein (Negative) Urine Glucose (UA) (Negative) Urine Ketones (Negative) Urine Blood (Negative) Urine Nitrite (Negative) Urine Bilirubin (Negative) Urine Urobilinogen (Negative) Ur Leukocyte Esterase (Negative) Urine WBC (Auto) (0-5) /hpf Urine RBC (Auto) (0-4) /hpf U Hyaline Cast (Auto) (0-5) /lpf U Epithel Cells (Auto) (0-5) /lpf Urine Bacteria (Auto) (Negative) Urine Mucus (None Prsent) Influenza Type A (PCR) (Neg) Influenza Type B (PCR) (Neg) 05/31/19 05/31/19 05/31/19 Range/Units 11:35 11:50 12:01 WBC (4.8-10.8) K/uL RBC (4.2-5.4) M/uL Hgb (12.0-16.0) g/dL Hct (37-47) % MCV (80-100) fL MCH (25-34) pg MCHC (32-36) g/dL RDW Std Deviation (36.4-46.3) fL RDW Coeff of [place] (11.5-14.5) % Plt Count (130-400) K/uL MPV (7.4-10.4) fL Immature Gran % (Auto) % Neut % (Auto) % Lymph % (Auto) % [place] % (Auto) % Eos % (Auto) % Baso % (Auto) % Immature Gran # (Auto) (0.00-0.02) K/uL Neut # (Auto) (1.4-6.5) K/uL Lymph # (Auto) (1.2-3.4) K/uL [place] # (Auto) (0.11-0.59) K/uL Eos # (Auto) (0-0.5) K/uL Baso # (Auto) (0-0.2) K/uL PT (9.0-12.0) Seconds INR (0.9-1.1) APTT (21.0-31.0) Seconds PTT Ratio Sodium 139 (136-145) mmol/L Potassium 3.2 L (3.5-5.1) mmol/L Chloride 108 H (98-107) mmol/L Carbon Dioxide 20 L (21-32) mmol/L Anion Gap 11.0 (3-11) BUN 10 (7-18) mg/dl Creatinine 0.93 (0.6-1.2) mg/dl Est Cr Clr Drug Dosing 52.4 ml/min Est GFR ( Amer) 67.3 Est GFR (Non-Af Amer) 58.0 BUN/Creatinine Ratio 10.4 (10-20) Glucose 110 H (70-99) mg/dl Lactate 2.3 H* (0.4-2.0) mmol/L Calcium 9.4 (8.5-10.1) mg/dl Magnesium 1.8 (1.8-2.4) mg/dl Total Bilirubin 0.5 (0.2-1) mg/dl AST 15 (15-37) U/L ALT 16 (12-78) U/L Alkaline Phosphatase 64 (45-117) U/L Troponin I < 0.015 (0-0.045) ng/ml Total Protein 7.2 (6.4-8.2) gm/dl Albumin 3.5 (3.4-5.0) gm/dl Globulin 3.7 (2.5-4.0) gm/dl Albumin/Globulin Ratio 0.9 (0.9-2) Procalcitonin (0-0.5) ng/ml Urine Color Urine Appearance (Clear) Urine pH (4.5-7.5) Ur Specific [place] (1.000-1.030) Urine Protein (Negative) Urine Glucose (UA) (Negative) Urine Ketones (Negative) Urine Blood (Negative) Urine Nitrite (Negative) Urine Bilirubin (Negative) Urine Urobilinogen (Negative) Ur Leukocyte Esterase (Negative) Urine WBC (Auto) (0-5) /hpf Urine RBC (Auto) (0-4) /hpf U Hyaline Cast (Auto) (0-5) /lpf U Epithel Cells (Auto) (0-5) /lpf Urine Bacteria (Auto) (Negative) Urine Mucus (None Prsent) Influenza Type A (PCR) Neg for Influ A (Neg) Influenza Type B (PCR) Neg for Influ B (Neg) 05/31/19 05/31/19 Range/Units 12:22 13:55 WBC (4.8-10.8) K/uL RBC (4.2-5.4) M/uL Hgb (12.0-16.0) g/dL Hct (37-47) % MCV (80-100) fL MCH (25-34) pg MCHC (32-36) g/dL RDW Std Deviation (36.4-46.3) fL RDW Coeff of [place] (11.5-14.5) % Plt Count (130-400) K/uL MPV (7.4-10.4) fL Immature Gran % (Auto) % Neut % (Auto) % Lymph % (Auto) % [place] % (Auto) % Eos % (Auto) % Baso % (Auto) % Immature Gran # (Auto) (0.00-0.02) K/uL Neut # (Auto) (1.4-6.5) K/uL Lymph # (Auto) (1.2-3.4) K/uL [place] # (Auto) (0.11-0.59) K/uL Eos # (Auto) (0-0.5) K/uL Baso # (Auto) (0-0.2) K/uL PT (9.0-12.0) Seconds INR (0.9-1.1) APTT (21.0-31.0) Seconds PTT Ratio Sodium (136-145) mmol/L Potassium (3.5-5.1) mmol/L Chloride (98-107) mmol/L Carbon Dioxide (21-32) mmol/L Anion Gap (3-11) BUN (7-18) mg/dl Creatinine (0.6-1.2) mg/dl Est Cr Clr Drug Dosing ml/min Est GFR ( Amer) Est GFR (Non-Af Amer) BUN/Creatinine Ratio (10-20) Glucose (70-99) mg/dl Lactate 2.2 H* (0.4-2.0) mmol/L Calcium (8.5-10.1) mg/dl Magnesium (1.8-2.4) mg/dl Total Bilirubin (0.2-1) mg/dl AST (15-37) U/L ALT (12-78) U/L Alkaline Phosphatase (45-117) U/L Troponin I (0-0.045) ng/ml Total Protein (6.4-8.2) gm/dl Albumin (3.4-5.0) gm/dl Globulin (2.5-4.0) gm/dl Albumin/Globulin Ratio (0.9-2) Procalcitonin (0-0.5) ng/ml Urine Color Dark Yellow Urine Appearance Clear (Clear) Urine pH 6.0 (4.5-7.5) Ur Specific [place] 1.026 (1.000-1.030) Urine Protein 1+ H (Negative) Urine Glucose (UA) Negative (Negative) Urine Ketones 2+ H (Negative) Urine Blood Negative (Negative) Urine Nitrite Negative (Negative) Urine Bilirubin 1+ H (Negative) Urine Urobilinogen Negative (Negative) Ur Leukocyte Esterase Trace H (Negative) Urine WBC (Auto) 1-5 (0-5) /hpf Urine RBC (Auto) 0-4 (0-4) /hpf U Hyaline Cast (Auto) 1-5 (0-5) /lpf U Epithel Cells (Auto) >30 H (0-5) /lpf Urine Bacteria (Auto) Negative (Negative) Urine Mucus Present A (None Prsent) Influenza Type A (PCR) (Neg) Influenza Type B (PCR) (Neg) Imaging Data Radiologist's Impression: Radiology results as stated below per my review and the radiologist's interpretation: SINGLE VIEW CHEST CLINICAL HISTORY: Sepsis. FINDINGS: An AP, portable, upright chest radiograph is obtained. No prior studies are available for comparison at the time of dictation. The cardiomediastinal silhouette is unremarkable. There is minimal bibasilar atelectasis. The lungs and pleural spaces are otherwise clear. No pneumothorax is seen. The skeletal structures are osteopenic. The bony thorax is grossly intact. IMPRESSION: No active disease in the chest. ACT 112: Negative or not required by law. Electronically signed by: Akash Vargas M.D. 05/31/2019 12:23 PM ECG Data Attestation: I personally reviewed and interpreted this ECG as follows: Indication: + SOB/dyspnea Rate (beats per minute): 108 Rhythm: + sinus tachycardia ECG ST segments: no ST elevation ECG Findings: + PACs (frequent) and + Other (T wave flattening in the lateral leads, QT-c 426) Blood Pressure Blood Pressure Findings: Elevated blood pressure Blood Pressure Disposition: Referred to patients primary care provider MDM Narrative There is no leukocytosis or concerning anemia. Platelet count was slightly high at 421. No coagulopathy. No significant electrolyte abnormality or kidney failure. Lactic acid level was mildly elevated at just over 2, this make severe sepsis less likely. No concerning liver enzyme elevation. Procalcitonin level was normal. EKG showed a sinus tachycardia with frequent PACs, there was some baseline artifact. Cardiac enzyme testing x1 is not consistent with acute c ardiac injury. Urinalysis does not show infection but more so contamination. Influenza testing was negative. Chest film did not show pneumonia or CHF. The patient received IV saline, 1.5 L. She was given IV Solu-Medrol and IV cefepime. She received a DuoNeb. The patient's breathing has improved. She no longer seems to be in any respiratory distress. She is still somewhat tachycardic though. I do think a hospital stay is warranted. The patient appears to have a form of acute bronchitis which has led to some respiratory distress. She does seem somewhat dehydrated. She has been quite weak. I did speak to the patient and case management. The on-call hospitalist has been consulted. Continuous Cardiac Monitoring: An order was placed for continuous cardiac monitoring. The monitor shows a rate of 133 with sinus tachycardia and PACs. Impression & Plan Respiratory distress, Shortness of breath, Weakness, Dehydration, Rash Discharge Plan Visit Data Chief Complaint: Respiratory Problems Stated Complaint: COLD,COUGH Other Complaint: Flu Like Symptoms ED Provider: Akash Byrd Discharge Problem: Respiratory distress, Shortness of breath, Weakness, Dehydration, Rash Patient Disposition: Being Evaluated by Hospitalist Forms Stand Alone Forms: My [employer] Prescriptions Prescriptions: No Action No Known Home Medications RF: 0 Referrals Referrals: Yessenia Cameron DO [Primary Care Provider] - The scribe's documentation has been prepared under my direction and personally reviewed by me in its entirety. I confirm that the note above accurately reflects all work, treatment, procedures, and medical decision making performed by me.
[2019-05-31] MEDS ORDERED: PNEUMOCOCCAL POLYSACCHARIDES 25 MCG/0.5 ML VIAL/SYR IM ONE (16:56)
[2019-05-31] MEDS ORDERED: PNEUMOCOCCAL ADMINISTRATION CHARGE ONE (16:56)
--- NOTE | 2019-05-31 18:08 | History & Physical Report ---
Date of Service May 31, 2019 Assessment & Plan (1) Respiratory distress: Admit to PCU on telemetry for sepsis Start cefepime 2 g IV every 12 hours for possible pneumonia Replenish potassium Replenish magnesium Ipratropium nebs every 8 hours Blood cultures pending Sputum cultures pending Trended down lactic acid DVT prophylaxis Heparin 5000 units twice daily Full code Present on Admission?: Yes (2) Shortness of breath: As the above Present on Admission?: Yes (3) Weakness: Physical and Occupational Therapy once when patient clinically improved. Present on Admission?: Yes (4) Dehydration: Patient received 2 L of fluid in the ER continue gentle IV fluid hydration. Present on Admission?: Yes (5) Elevated blood pressure reading: In the ER patient had elevated blood pressure. She is not on any blood pressure medicine. Continue monitoring. Hydralazine 10 mg p.o. 4 times daily as needed for elevated blood pressure 160/90 Present on Admission?: Yes History of Present Illness Chief Complaint: Shortness of breath Primary Care Provider: Yessenia Cameron DO The patient is an 78 years old female without significant past medical history who presents to the emergency room with a complaint of a worsening respiratory problem started a week ago. The patient states that for the past week she has had an intermittent productive cough with yellow-santiago sputum, she has trouble breathing and she has chills. Patient reports that she did not move much out of bed. Patient reports shortness of breath was worsening today and she was in situation to call 911. Patient complains of a red rash over her leg around her eyes and on her chest that has been there for approximately 10 to 15 years. Patient reports that she tried everything to take care of of that rash but it did not go away. Patient reports that she also went through allergy testing and she was prescribed in the past several different medications , which also did not give her any relief. Patient denies fever, chills, chest pain, abdominal pain, frequency, urgency. EKG shows sinus tachycardia with premature supraventricular complexes low voltage QRS nonspecific T wave abnormalities. Labs are reviewed WBC is 10.45, hemoglobin 12.9, hematocrit 40.5, platelets 421, PT 10.3, INR 1, APTT 24, sodium 139, potassium 3.2, chloride 1.8, BUN 10, creatinine 0.93, GFR 58, lactate 2.3, 2.2, calcium 9.4, magnesium 1.8, total bili 0.5, AST 15, ALT 16, alkaline phosphatase 64, troponin 0.015, BNP 375, total protein 7.2, albumin 3.5, globulin 3.7, procalcitonin 0.05, urine dark, urine protein 1+, urine ketones 2+, urine nitrate negative, urine bilirubin 1+, urine leukocyte esterase trace, negative for bacteria. Influenza A and B are negative. A decision was made to admit patient to the PCU on telemetry generalized weakness and acute respiratory distress, possible pneumonia. Allergies Allergy/AdvReac Type Severity Reaction Status Date / Time No Known Allergies Allergy Unverified 05/31/19 11:29 Home Medications Home Medications Medication Instructions Recorded Confirmed Type No Known Home Medications 05/31/19 05/31/19 History Past Med/Surg History Medical History No known health problems Family History Other Family history non-contributory Social History Preferred Language: Albanian Communication Ability: Effective Head Nurse Required: No Beliefs That Will Affect Care: None Current Living Situation: Family Current Living Situation Comment: lives with twin sister current occupational status: retired Other Information That Helps Us Care for You: No Feels Safe at Home: Yes Safety Concerns: Feels Safe At This Time Smoking Status: Former smoker Do You Dip or Chew Tobacco: No ; Second Hand Exposure: No ; Tobacco Cessation Education Requested by Patient: No Hx Alcohol Use: Yes Hx Substance Use: No Review of Systems Review of Systems: All systems reviewed & are unremarkable except as noted in HPI & below Physical Exam Constitutional: WD/WN, vitals as above well developed and + obese Eyes: PERRL, conjunctivae normal, anicteric sclerae ENMT: external ear and nose normal, oropharynx normal Neck: trachea midline, no thyromegaly Respiratory: + respiratory distress, + labored breathing and + uses accessory muscles Auscultation: + crackles and + wheezes Cardiovascular: RRR, no murmur, no edema Rate/Rhythm: + tachycardic Heart Sounds: normal S1, normal S2 and + murmur Vessels: dorsalis pedis pulses present Gastrointestinal (Abdomen): normal bowel sounds, soft, nontender, no hepatosplenomegaly Musculoskeletal: no cyanosis or clubbing, extremities motor strength 5/5 Skin: no rashes, warm and dry Neurologic: patellar DTR's 2+ bilat, sensation intact Psychiatric: A+Ox3, euthymic affect Lymphatic: no cervical or axillary lymphadenopathy Results & Data Vital Signs (Past 12 Hours) Vital Signs Temp Pulse Pulse Resp BP BP Pulse Ox 05/31/19 17:30 115 H 15 163/99 H 95 05/31/19 17:00 118 H 17 160/96 H 94 05/31/19 16:30 118 H 20 170/90 H 96 05/31/19 16:00 116 H 18 174/91 H 05/31/19 15:30 116 H 17 163/83 H 05/31/19 15:00 114 H 21 166/83 H 05/31/19 14:30 111 H 23 167/78 H 95 05/31/19 13:30 111 H 21 152/83 H 95 05/31/19 12:33 120 H 21 149/133 H 93 05/31/19 12:02 101 H 20 96 05/31/19 12:01 126 H 25 H 142/72 H 92 05/31/19 11:48 109 H 24 152/89 H 95 05/31/19 11:17 36.3 C L 133 H 24 178/97 H 95 Code Status & VTE Plan Code Status Full code VTE Prophylaxis Plan VTE Prophylaxis will be ordered: Yes PG Care Time/CCT Total # of Minutes Spent Total Time Spent with Patient: Total time spent is greater than 50% in coordination of care (as documented) at patient's floor/unit and/or counseling patient: Coding Level of Care Code 34124 Initial Inpt Care Lvl 3 Diagnoses Respiratory distress R06.03 Shortness of breath R06.02 Weakness R53.1 Dehydration E86.0 Elevated blood pressure reading R03.0
[2019-05-31] MEDS ORDERED: POTASSIUM CHLORIDE 20 MEQ TABCR PO STA (18:12)
--- OUTSIDE RECORDS SUMMARY | 2019-05-31 18:13 | External Medical Summary | Continuity of Care Document ---
:1940 Author Name Reynaldo Parra, Provider Address Unavailable Unavailable , Care Team Providers Name Role Phone Renato Cameron DO Unavailable [email or web address] Steven Yanez Unavailable [email or web address] RENATO CAMERON M.D. Unavailable Unavailable [facility], I Unavailable Unavailable Sina STONE Unavailable [email or web address] Diane Parra Unavailable [email or web address] Unavailable Unavailable Unavailable Problems Vitamin D deficiency (268.9) (E55.9) Anxiety (300.00) (F41.9) Pre-diabetes (790.29) (R73.03) Fatty liver (571.8) (K76.0) Leukocytosis (288.60) (D72.829) Epistaxis (784.7) (R04.0) Atopic dermatitis (691.8) (L20.9) GERD without esophagitis (530.81) (K21.9) Chronic kidney disease, stage III (moderate) (585.3) (N18.3) Hypertension (401.9) (I10) Urinary symptom or sign (788.99) (R39.9) Microscopic hematuria (599.72) (R31.29) Arthritis (716.90) (M19.90) Muscle cramping (729.82) (R25.2) Allergies and Adverse Reactions Amoxicillin TABS (Allergy) Codeine Derivatives (Allergy) Reaction: Rash Sulfa Drugs (Allergy) Zocor TABS (Allergy) Reaction: Bleeding Medications Lisinopril 10 MG Oral Tablet; TAKE ONE TABLET BY MOUTH DAILY DO Renato Cameron Start: 06-Nov-2016 Quantity: 30 Refills: 5 LORazepam 0.5 MG Oral Tablet; TAKE 1 TABLET Every 8 ho urs PRN ALYSSA Gerber Start: 06-Nov-2016 Quantity: 30 Refills: 0 Anusol-HC 2.5 % Rectal Cream; APPLY ONCE DAILY NEEDED. Start: 06-Nov-2016 Refills: 0 30 GM Tube Probiotic Oral Capsule; Take 1 capsule PO daily. Start: 06-Nov-2016 Refills: 0 Atenolol 100 MG Oral Tablet; TAKE (1) TABLET BY MOUTH ONCE DAILY DO Renato Cameron Start: 17-Sep-2018 Quantity: 90 Refills: 0 Pantoprazole Sodium 40 MG Oral Tablet De layed Release; TAKE 1 TABLET TWICE DAILY 30 MINUTES BEFORE BREAKFAST AND DINNER. DO Renato Cameron Start: 2018 Quantity: 60 Refills: 5 Vitamin D3 1.25 MG (33517 UT) Oral Capsule; TAKE 1 CAP DORIAN Weekly ALYSSA Gerber Start: 12-Sep-2018 Quantity: 10 Refills: 0 Vitamin D3 50 MCG (2000 UT) Oral Capsule; TAKE 1 CAPSU LE Daily ALYSSA Gerber Start: 12-Mar-2018 Refills: 0 Triamcinolone Acetonide 0.025 % External Cream; APPLY SPARINGLY TO AFFECTED AREA(S) 2 TO 3 TIMES DAILY. ALYSSA Gerber Start: 11-Mar-2018 Quantity: 1 Refills: 1 DULoxetine HCl - 30 MG Oral Capsule Mikala yed Release Particles; TAKE ONE CAPSULE BY MOUTH EVERY DAY ALYSSA Gerber Start: 06-Sep-2018 Quantity: 30 Refills: 5 Procedures History of hysterectomy total Status: Co mpleted History of knee replacement Status: Comp leted Immunizations Influenza (Whole) On: 27-Mar-2005 Influenza (Whole) On: 21-Feb-2006 Influenza (Whole) On: 07-Feb-2008 Influenza (Whole) On: 16-Feb-2009 Influenza (Whole) On: 05-Feb-2010 Influenza (Whole) On: 27-Feb-2011 Influenza (Whole) On: 09-Apr-2012 Influenza (Whole) On: 09-Apr-2012 Influenza (Whole) On: 26-Feb-2013 Influenza (Whole) On: 08-Jan-2014 Influenza (Whole) On: 21-Jan-2015 Influenza (Whole) On: 2015 Influenza (Whole) On: 02-Feb-2016 Prevnar 13 Intramuscular Suspension On: 11-Jul-2016 Tdap (Adacel) On: 06-Nov-2016 18:46 Lot #: [id number], [employer] PA[employer]UR Influenza On: 04-Feb-2017 Influenza On: 31-Jan-2018 Family History Father Family history of malignant neoplasm (V16.9) (Z80.9) Status: Active Family history of kidney stones (V18.69) (Z84.1) Status: Act carlos Family history of seizures (V19.8) (Z84.89) Status: Active Sister Family history of depression (V17.0) (Z81.8) Status: Active Social History - Smoking Status Former smoker Plan of Treatment Planned Encounters Appointment; Renato Cameron DO Start: 13-Mar-2019 10:[address] Planned Observations Planned Goals not documented Results No Known Results Results not documented Encounters Appointment; Steven Gerber CRNP 10-Sep-2018 13:00 Encounter Diagnosis: Problem not documented Appointment; Nurse Uyen 25-Apr-2018 11:00 Encounter Diagnosis: Problem not documented Appointment; Steven Gerber CRNP 11-Mar-2018 11:40 Encounter Diagnosis: Problem not documented Appointment; Renato Cameron DO 20-Nov-2017 13:40 Encounter Diagnosis: Problem not documented Appointment; Renato Cameron DO 12-Oct-2017 11:40 Encounter Diagnosis: Problem not documented Appointment; Renato Cameron DO 10-Sep-2017 13:40 Encounter Diagnosis: Problem not documented Appointment; Oliva Contreras M.D. 17-Jul-2017 10:00 Encounter Diagnosis: Problem not documented Appointment; Renato Cameron DO 13-Mar-2019 10:00 Encounter Diagnosis: Problem not documented
[2019-05-31] MEDS ORDERED: HydrALAZINE 10 MG TAB PO PRN (18:14)
[2019-05-31] MEDS ORDERED: MAGNESIUM HYDROXIDE SUSP 30 ML UDC PO PRN (18:14)
[2019-05-31] MEDS ORDERED: ONDANSETRON INJ 2 MG/ML 2 ML VIAL IV PRN (18:14)
[2019-05-31] MEDS ORDERED: GUAIFENESIN/CODEINE 200MG/20MG 10ML UDC PO PRN (18:14)
[2019-05-31] MEDS ORDERED: ALUMINUM/MAGNESIUM SUSP 30 ML UDC PO PRN (18:14)
[2019-05-31] MEDS ORDERED: POLYETHYLENE (MIRALAX) 17 GM PACK PO PRN (18:14)
[2019-05-31] MEDS ORDERED: MAGNESIUM SULFATE / D5W 1 GM/100 ML BAG IV ONE (18:30)
[2019-05-31] MEDS: CLOTRIMAZOLE/BETAMETHASONE CR 15 GM TUBE EXT SCH (19:27)
--- NOTE | 2019-05-31 20:18 | Electrocardiogram Report ---
Test Reason : Blood Pressure : / mmHG Vent. Rate : 108 BPM Atrial Rate : 108 BPM P-R Int : 178 ms QRS Dur : 072 ms QT Int : 318 ms P-R-T Axes : 081 028 089 degrees QTc Int : 426 ms Sinus tachycardia with Premature atrial complexes Low voltage QRS T wave abnormality, consider inferior ischemia Abnormal ECG No previous ECGs available Confirmed by Leroy Dixon ([id number]) on 05/31/2019 8:18:11 PM Referred By: Confirmed By:Kirk Dixon
--- NOTE | 2019-05-31 20:24 | Electrocardiogram Report ---
Test Reason : Blood Pressure : / mmHG Vent. Rate : 110 BPM Atrial Rate : 110 BPM P-R Int : 178 ms QRS Dur : 074 ms QT Int : 346 ms P-R-T Axes : 079 021 084 degrees QTc Int : 468 ms Sinus tachycardia with Premature supraventricular complexes Low voltage QRS Nonspecific T wave abnormality Abnormal ECG When compared with ECG of 31-MAY-2019 11:25, (unconfirmed) No significant change was found Confirmed by Leroy Dixon ([id number]) on 05/31/2019 8:23:39 PM Referred By: REFERRED SELF Confirmed By:Kirk Dixon
[2019-05-31] MEDS: HEPARIN SOD 5,000 UNIT/0.5 ML VIAL SQ SCH (20:29)
[2019-05-31] MEDS: IPRATROPIUM BROMIDE NEB SOLN 0.02% 2.5 ML VIAL NEB SCH (23:00)
[2019-06-01] MEDS ORDERED: CEFEPIME 2,000 MG in SYRINGE 7.5 ML IV SCH
[2019-06-01 06:16] LABS: Basophils # (auto) 0.01 K/uL (0-0.2); Basophils % (auto) 0.1 %; Hematocrit (blood only) 34.3 % (37-47); Hemoglobin 11.1 g/dL (12.0-16.0); Immature Granulocytes # (auto) 0.04 K/uL (0.00-0.02); Immature Granulocytes % (auto) 0.4 %; Lymphocytes # (auto) 1.54 K/uL (1.2-3.4); Lymphocytes % (auto) 13.7 %; Mean Corpuscular Hemoglobin 27.3 pg (25-34); Mean Corpuscular Hgb Conc 32.4 g/dL (32-36); Mean Corpuscular Volume 84.5 fL (80-100); Mean Platelet Volume 9.9 fL (7.4-10.4); Monocytes # (auto) 1.31 K/uL (0.11-0.59); Monocytes % (auto) 11.6 %; Neutrophils # (auto) 8.37 K/uL (1.4-6.5); Neutrophils % (auto) 74.2 %; Platelet Count 384 K/uL (130-400); Red Blood Count 4.06 M/uL (4.2-5.4); White Blood Count 11.27 K/uL (4.8-10.8)
[2019-06-01 07:07] LABS: Albumin Globulin Ratio 0.9 (0.9-2); BUN Creatinine Ratio 15.3 (10-20); Bilirubin,Total 0.4 mg/dl (0.2-1); Calcium 8.7 mg/dl (8.5-10.1); Creatinine Clr Calc Pharmacy 59.3 ml/min; Est GFR (African American) 79.5; Est GFR (Non-African American) 68.6; Globulin 3.2 gm/dl (2.5-4.0); Total Protein 6.2 gm/dl (6.4-8.2)
[2019-06-01] MEDS: IPRATROPIUM BROMIDE NEB SOLN 0.02% 2.5 ML VIAL NEB SCH (07:18)
[2019-06-01] MEDS: HEPARIN SOD 5,000 UNIT/0.5 ML VIAL SQ SCH ×2 (08:20→21:32)
[2019-06-01] MEDS: CLOTRIMAZOLE/BETAMETHASONE CR 15 GM TUBE EXT SCH (08:20)
--- NOTE | 2019-06-01 10:47 | Hospitalist Progress Note ---
Date of Service June 01, 2019 Assessment & Plan (1) Shortness of breath: I believe this is a viral URI or possible COPD exacerbation. She does not officially carry a COPD diagnosis and is improving without steroids, so I will not label it as such for now. Flu negative on admission. - Stopped cefepime for clear CXR and negative procalcitonin on admission - Continue DuoNebs, but will space them out as she had no wheezing on my exam this morning. - Recommend PFTs as outpatient once acute illness has subsided (2) Tachycardia: EKGs on admission showed sinus tachycardia. Likely due to illness. - Will give another 1L of IV fluids - Monitor (3) Weakness: Patient reports she is very unstead on her feet when trying to go to the bedside commode. Likely generalized weakness from being sick for ~1 week. - PT/OT (4) Elevated blood pressure reading: In the ER, patient's BP was as high as 170/90. She is not on any blood pressure medicine. - Today, BP down to 145/90. - Continue monitoring. - Hydralazine PRN for SBP > 190/100. (5) Eczema: Reports rash on the legs and chest that she has dealt with for >10 years. Worse in the winter. Get dry, scaly, itchy patches. Reports she has been told it is "allergies." This looks like classic eczema to me. - Started low potency steroid BID to the effected areas -> Continue for 2-4 weeks. (End date: Middle to end of June 2019) - Use moisturizer liberally in between steroid applications. - Monitor areas. This is NOT cellulitis, so need need for abx. (6) DVT prophylaxis: Heparin 5000 units SQ Q12h Subjective Feeling better today. Still with some cough and shortness of breath. Reports no fevers/chills, chest pain, abdominal pain, nausea, or vomiting. Physical Exam Constitutional: WD/WN, vitals as above Eyes: EOM intact bilaterally; no conjunctival abnormality ENMT: external ear and nose normal, oropharynx normal Neck: trachea midline, no thyromegaly normal visual inspection Respiratory: normal respiratory effort, lungs clear to auscultation no respiratory distress Cardiovascular: RRR, no murmur, no edema Gastrointestinal (Abdomen): Inspection/Auscultation: abdomen normal to inspection; abdomen not distended Musculoskeletal: no cyanosis or clubbing, extremities motor strength 5/5 Skin: no rashes, warm and dry Neurologic: moves all extremities and awake Psychiatric: Orientation: alert, oriented to person and cooperative Results & Data Vital Signs (Past 12 Hours) Vital Signs Temp Pulse Pulse Pulse Resp BP Pulse Ox 06/01/19 07:18 107 H 16 97 06/01/19 07:00 36.8 C 111 H 18 144/89 H 95 06/01/19 04:02 36.7 C 107 H 18 139/82 95 06/01/19 00:00 113 H 05/31/19 23:28 36.8 C 107 H 18 138/80 94 05/31/19 23:00 110 H 18 95 PG Care Time/CCT Total # of Minutes Spent Total Time Spent with Patient: Total time spent is greater than 50% in coordination of care (as documented) at patient's floor/unit and/or counseling patient: Coding Level of Care Code 29250 Subseq Hosp Care Lvl 3 Diagnoses Shortness of breath R06.02 Tachycardia R00.0 Weakness R53.1 Elevated blood pressure reading R03.0 Eczema L30.9 DVT prophylaxis Z29.9
[2019-06-01] MEDS ORDERED: ALBUT/IPRATROP 3MG/0.5MG NEB 3 ML VIAL NEB PRN (10:48)
[2019-06-01] MEDS ORDERED: NORMOSOL-R 1,000 ML IV ONE (10:49)
[2019-06-01] MEDS ORDERED: HydrALAZINE 10 MG TAB PO PRN ×2 (10:49→10:50)
[2019-06-01] MEDS: ALBUT/IPRATROP 3MG/0.5MG NEB 3 ML VIAL NEB SCH ×2 (13:00→20:02)
[2019-06-01] MEDS: DESONIDE CR 15 GM TUBE EXT SCH ×2 (14:00→21:29)
[2019-06-01] MEDS ORDERED: ADENOSINE IV SOLN 3 MG/ML 2 ML VIAL IV ONE ×2 (14:36→14:39)
[2019-06-01] MEDS ORDERED: LORazepam 2 MG/4 ML VIAL ONE (14:41)
[2019-06-01] MEDS ORDERED: dilTIAZem HCl 5 MG/ML 5 ML VIAL IV ONE (14:46)
[2019-06-01] MEDS ORDERED: dilTIAZem HCL 125 MG in DEXTROSE 5% 100 ML IV SCH (15:00)
--- NOTE | 2019-06-01 15:23 | XRay Report ---
XR chest 1V portable HISTORY: 78 years-old Female Respiratory distress acute respiratory distress COMPARISON: Chest radiograph 05/31/2019 TECHNIQUE: Portable AP view of the chest FINDINGS: Mild right hemidiaphragmatic elevation. Cardiac silhouette is enlarged. Widening of the mediastinum m ay be secondary to technique. No pneumothorax, pleural effusion or overt pulmonary edema. Degenerativ e changes of the shoulders and spine. IMPRESSION: Cardiomegaly without acute process. ACT 112: Negative or not required by law. The above report was generated using voice recognition software. It may contain grammatical, syntax o r spelling errors. Electronically signed by: Elias Lockhart M.D. 06/01/2019 3:21 PM
[2019-06-01] MEDS ORDERED: OPTIRAY 320 125ml IV PRN (15:27)
[2019-06-01] MEDS ORDERED: METOPROLOL TARTRATE 1 MG/ML VIAL IV ONE (15:36)
--- NOTE | 2019-06-01 15:49 | Critical Care Consultation ---
Date of Consultation June 01, 2019 Assessment & Plan (1) Tachycardia: Impression: 78-year-old female admitted with shortness of breath and weakness and what appears to be atrial fibrillation with a rapid ventricular response. There was initial concern about pneumomediastinum however review the x-rays revealed that it is simply artifactual due to rotation. No significant mediastinal widening identified on CT scan. She received beta-blockers in the ICU and has converted to sinus rhythm with a heart rate in the 90s. Her respiratory issues have now resolved as well. Recommendations: 1. Atrial arrhythmia: It appears the patient may be intermittently in atrial fibrillation. Cannot rule out atrial tachycardia. She has responded to beta- blockers quite well. We will discontinue the Cardizem drip and place her on oral metoprolol at this point time. Cardiology consultation is pending. Echocardiogram was performed and is unremarkable. Check thyroid studies as well. 2. Dyspnea: I suspect this was related to the patient's tachycardia. With slowing of her heart rate the respiratory issues appear to have resolved. Continue to monitor. 3. Mild leukocytosis: Do not see evidence of clear infection/consolidation on her CT scan. Would hold antibiotics for now. Her procalcitonin was also negative arguing against significant pathology. Stress response may be the culprit. 4. Anticipate the patient can likely return back to the floor under the care of the hospitalist today or tomorrow. Discussed with Dr. Chang at bedside. (2) Shortness of breath: (3) Abnormal CT scan of lung: History of Present Illness Attending Physician: Milad Chang MD History of Present Illness Asked by hospitalist to assist in management of this patient with respiratory distress and tachy arrhythmia. History is obtained from discussion with the hospitalist as well as review the electronic medical record and interview the patient at bedside. The patient is an 78-year-old female who was admitted to the facility yesterday. She presented with an intermittently productive cough shortness of breath and reported chills. Her procalcitonin was negative and a chest x-ray was unrevealing. She was admitted to telemetry and monitored. Today the hospitali st noted that she had some bilateral supraclavicular fullness and there was concern about pneumomediastinum. A chest x-ray was performed which was rotated and this resulted in a widening of the mediastinum. I was contacted to evaluate the patient due to concern about new pneumomediastinum. I recommended that they get a stat CT of the chest and presented to the ICU to evaluate the patient. I reviewed the CT scan which demonstrated no pneumomediastinum. In fact the lung parenchyma appears relatively normal. On assessment of the patient, she appears to be in atrial fibrillation with a rapid ventricular response. We discontinued the Cardizem which had been started on the floor and I administered 5 mg of IV Lopressor with a decrease in her heart rate from the 140s down to the 110s. She symptomatically was markedly better. Her blood pressure remained stable throughout this. She is not wheezing. 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 Unable to obtain definitive review of systems currently Physical Exam Constitutional: WD/WN, vitals as above Neck: trachea midline, no thyromegaly Respiratory: normal respiratory effort, lungs clear to auscultation Cardiovascular: Rate/Rhythm: + tachycardic and + irregularly irregular Heart Sounds: normal S1 and normal S2 Extremities: no edema Gastrointestinal (Abdomen): normal bowel sounds, soft, nontender, no hepatosplenomegaly Musculoskeletal: Extremities: extremities normal to inspection Skin: no rashes, warm and dry Neurologic: Nonfocal exam Lymphatic: no cervical lymphadenopathy Results & Data Vital Signs (Past 12 Hours) Vital Signs Temp Pulse Pulse Pulse Resp BP BP 06/01/19 13:00 105 H 16 06/01/19 11:37 36.6 C 103 H 18 148/81 H 06/01/19 07:18 107 H 16 06/01/19 07:00 36.8 C 111 H 18 144/89 H 06/01/19 04:02 36.7 C 107 H 18 139/82 Pulse Ox 06/01/19 13:00 96 06/01/19 11:37 95 06/01/19 07:18 97 06/01/19 07:00 95 06/01/19 04:02 95 Laboratory Results 06/01/19 05:37 06/01/19 05:37 Diagnostic Findings Chest x-ray from today was independently reviewed and compared to chest x-ray from yesterday. The current film is rotated UKRAINIAN which results in widening of the mediastinum. I do not see any clear air. CT angiogram from 06/01/2019 was independently reviewed. The pulmonary parenchyma appears free of any infiltrate. No evidence of mediastinal air. There is some dynamic airway collapse of the lower airways. No pleural effusion Echo reviewed. Essentially unremarkable. EKG: Initial EKG was irregularly irregular concerning for atrial fibrillation. Current EKG now with her heart rate slowed down is fairly regular. Coding Level of Care Code Critical Care 1st 30-74 mins Diagnoses Tachycardia R00.0 Shortness of breath R06.[address] scan of lung R91.8 Time Spent (min) 48 Comment 40 minutes critical care time managing potentially life-threatening clinical deterioration.
[2019-06-01] MEDS ORDERED: METOPROLOL TARTRATE 1 MG/ML VIAL IV STA ×2 (15:56→21:59)
--- NOTE | 2019-06-01 16:02 | CT Scan Report ---
CT angio chest PE protocol CT DOSE: 561.96 mGycm HISTORY: 78 years-old Female with Pneumomediastinum, r/o PE. Acute shortness of breath with respira tory distress TECHNIQUE: Multiple CTA images of the chest were obtained after the intravenous administration of 89 ml Optiray 320. Coronal and sagittal MIPS were obtained from the axial data set and were submitted f or review. All measurements were obtained according to NASCET criteria. A dose lowering technique wa s utilized adhering to the principles of ALARA. COMPARISON: Chest radiograph of same day and also 05/31/2019 FINDINGS: CTA: Heart is mildly enlarged. There is no pericardial effusion. No thoracic aortic aneurysm or dissection . Patency of the imaged great vessels. Mild mixed plaque the thoracic aorta. Pulmonary arterial tree is opacified to the level of the segmental branches and demonstrates no filling defects to suggest pu lmonary thromboembolic disease. The distal segmental branches and the subsegmental branches are not w ell opacified which limits the study. Respiratory motion artifact also limits the exam. No definite p ulmonary emboli identified. CT CHEST: Unremarkable thyroid. Mildly prominent mediastinal and hilar lymph nodes are likely reactive. No pneu mothorax or pleural effusion. Mild bibasilar atelectasis. Mild bilateral bronchial wall thickening. N o airspace consolidation typical for pneumonia. Pleural calcifications of the lung apices. There are a few scattered calcified granulomata noted. No suspicious pulmonary nodules or masses. Central airwa ys appear patent. Small hiatal hernia. No acute process of the imaged upper abdomen. Degenerative changes of the should ers and spine. Healing subacute appearing fractures of the anterolateral left fourth through sixth ri bs. IMPRESSION: 1. No evidence of pulmonary thromboembolic disease, pleural effusion or airspace consolidation to sug gest pneumonia. 2. Bilateral bronchial wall thickening. Correlate clinically to exclude bronchitis. 3. Subacute healing minimally displaced fractures of the anterolateral left fourth through sixth ribs . 4. Cardiomegaly. 5. Small hiatal hernia. ACT 112: Negative or not required by law. The above report was generated using voice recognition software. It may contain grammatical, syntax o r spelling errors. Electronically signed by: Elias Lockhart M.D. 06/01/2019 4:00 PM
--- NOTE | 2019-06-01 16:32 | Billing Data ---
Date of Service June 01, 2019 Coding Level of Care Code 15183 Prolonged Care (int'l) Comment Due to episode of afib with RVR, spent 3:30 pm - 4:15pm in the patient's room treating her
--- NOTE | 2019-06-01 18:21 | Electrocardiogram Report ---
Test Reason : Blood Pressure : / mmHG Vent. Rate : 173 BPM Atrial Rate : 174 BPM P-R Int : 000 ms QRS Dur : 070 ms QT Int : 272 ms P-R-T Axes : 000 023 140 degrees QTc Int : 461 ms Supraventricular tachycardia Nonspecific ST and T wave abnormality Abnormal ECG When compared with ECG of 31-MAY-2019 13:07, Premature supraventricular complexes are no longer Present Vent. rate has increased BY 63 BPM Nonspecific T wave abnormality no longer evident in Inferior leads T wave inversion now evident in Lateral leads Confirmed by Leroy Dixon ([id number]) on 06/01/2019 6:21:41 PM Referred By: REFERRED SELF Confirmed By:Kirk Dixon
[2019-06-01] MEDS: METOPROLOL TARTRATE 25 MG TAB PO SCH (21:29)
[2019-06-01] MEDS ORDERED: COUGH DROP (SUGAR FREE) LOZ 24 LOZ/1 BOX BUCCAL ONE (21:39)
[2019-06-02 04:37] LABS: Hemoglobin 10.4 g/dL (12.0-16.0); Mean Corpuscular Hemoglobin 27.2 pg (25-34); Mean Corpuscular Hgb Conc 31.5 g/dL (32-36); Mean Corpuscular Volume 86.2 fL (80-100); Mean Platelet Volume 9.1 fL (7.4-10.4); Platelet Count 386 K/uL (130-400); RDW Coefficient of Variation 16.4 % (11.5-14.5); RDW Standard Deviation 51.7 fL (36.4-46.3); Red Blood Count 3.83 M/uL (4.2-5.4)
[2019-06-02 04:57] LABS: BUN Creatinine Ratio 9.4 (10-20); Blood Urea Nitrogen 8 mg/dl (7-18); Calcium 8.5 mg/dl (8.5-10.1); Carbon Dioxide 20 mmol/L (21-32); Chloride 110 mmol/L (98-107); Est GFR (African American) 70.9; Est GFR (Non-African American) 61.2; Glucose 109 mg/dl (70-99); Potassium 3.4 mmol/L (3.5-5.1); Sodium 140 mmol/L (136-145)
[2019-06-02 04:58] LABS: Phosphorus 2.8 mg/dl (2.5-4.9); Troponin I < 0.015 ng/ml (0-0.045)
[2019-06-02 06:06] LABS: Estimated Average Glucose 123 mg/dl; Hemoglobin A1C 5.9 % (4.5-5.6)
[2019-06-02] MEDS ORDERED: POTASSIUM CHLORIDE 20 MEQ TABCR PO STA (06:10)
[2019-06-02] MEDS: ALBUT/IPRATROP 3MG/0.5MG NEB 3 ML VIAL NEB SCH (06:53)
[2019-06-02] MEDS: METOPROLOL TARTRATE 25 MG TAB PO SCH ×3 (08:25→19:31)
[2019-06-02] MEDS: DESONIDE CR 15 GM TUBE EXT SCH ×2 (08:30→19:31)
[2019-06-02] MEDS: POTASSIUM CHLORIDE / WTR 10 MEQ/100 ML PLCT IV SCH ×2 (08:33→10:06)
[2019-06-02] MEDS: HEPARIN SOD 5,000 UNIT/0.5 ML VIAL SQ SCH ×2 (08:38→19:31)
[2019-06-02] MEDS ORDERED: LORazepam 1 MG TAB PO PRN (08:51)
--- NOTE | 2019-06-02 08:59 | Critical Care Progress Note ---
Date of Service June 02, 2019 Assessment & Plan (1) Atrial arrhythmia: --Atrial arrhythmia TSH within normal limits, CTA negative for PE, airway trapping appreciated on CT chest, no clear infiltrate Patient responded well to beta-blockers. Heart rate is still in the high 110's. Will increase metoprolol to 25 mg 3 times daily with holding parameters. EKG there is a possibility of MAT given that the patient has history of COPD. We will get cardiology input as well. --Anxiety Patient takes duloxetine at home We will resume the medication at the home dose of 30 mg. QTC is 461 --Hypertension We will increase the dose of metoprolol as needed to control the heart rate and blood pressure. If need be we will add ARACELY inhibitor --History of alcohol abuse Patient states that she drinks 3 rum with coke pretty often Does have history of anxiety. Will give Ativan 1 mg every 4 hours for anxiety/withdrawal symptoms Duloxetine is already been restarted for her anxiety/depression -- COPD Not in exacerbation. Patient not on any inhalers at home. Needs to be discharged on lama inhaler(Incruse/Spiriva) Continue with only ema inhaler for the time being given beta agonist might give tachycardia Needs outpatient follow-up with pulmonary for PFTs. --DVT prophylaxis On heparin --Hypokalemia Being replaced Plan: Cardiology consult Patient is hemodynamically stable to be downgraded to telemetry floor. (2) HTN (hypertension): (3) H/O ETOH abuse: Subjective Patient seen and examined at bedside. No acute distress, no adverse events overnight. Patient's heart rate is better controlled since she came to the ICU. Patient responded well to beta-kenia push followed by 12.5 mg every 8 hours of metoprolol tartrate. Patient is very forgetful. She has anxiety regarding her questionable rectal mass. Patient denies any chest pain, no palpitations, no headache, no nausea or vomiting. Does complain of dizziness on exertion. No shortness of breath. Review of Systems Review of Systems: All systems reviewed & are unremarkable except as noted in HPI & below Physical Exam Physical Exam: Constitutional: No acute distress, HEENT: EOMI, PERRLA, arcus senilis bilaterally Respiratory system: Decreased air entry bilaterally, no wheeze, no rhonchi, positive crackles bilateral lower lobes CVS: S1-S2 positive, no murmurs or gallops, tachycardia, regular Abdomen: Soft, nontender, nondistended, positive bowel sounds x4 Extremities: +2 pulses bilaterally radialis/ dorsalis pedis, no cyanosis, no edema, positive rash in the right lower extremity blanching 5 x 4 cm, nontender, not warm Neuro: Awake alert oriented to self and knows that she is in hospital Psych: Anxious mood which she felt better after I talked to her. G/U: No Dillard Skin: normal turgor and + rash Lymphatic: no cervical or axillary lymphadenopathy Results & Data Vital Signs (Past 12 Hours) Vital Signs Temp Pulse Pulse Pulse Pulse Resp BP 06/02/19 06:53 105 H 16 06/02/19 06:00 104 H 104 H 104 H 06/02/19 05:00 104 H 104 H 104 H 22 06/02/19 04:00 108 H 108 H 108 H 28 H 06/02/19 03:00 100 H 100 H 23 06/02/19 02:00 108 H 108 H 108 H 20 06/02/19 01:00 106 H 106 H 106 H 22 06/02/19 00:00 37 C 100 H 95 H 95 H 95 H 25 H 06/01/19 23:00 103 H 103 H 103 H 25 H 06/01/19 22:09 123 H 131/69 06/01/19 22:00 106 H 106 H 106 H 22 06/01/19 21:00 118 H 118 H 118 H 23 BP BP Pulse Ox 06/02/19 06:53 96 06/02/19 06:00 158/70 H 158/70 H 95 06/02/19 05:00 166/78 H 166/78 H 99 06/02/19 04:00 145/71 H 145/71 H 92 06/02/19 03:00 166/87 H 166/87 H 97 06/02/19 02:00 155/96 H 155/96 H 97 06/02/19 01:00 162/83 H 162/83 H 94 06/02/19 00:00 118/64 118/64 94 06/01/19 23:00 124/81 124/81 94 06/01/19 22:09 06/01/19 22:00 131/69 131/69 93 06/01/19 21:00 149/81 H 149/81 H 93 06/02/19 04:24 06/02/19 04:24 Coding Level of Care Code Critical Care 1st 30-74 mins Diagnoses Atrial arrhythmia I49.8 HTN (hypertension) I10 H/O ETOH abuse F10.11 Time Spent (min) 40
[2019-06-02] MEDS ORDERED: BENZONATATE 100 MG CAPSULE PO SCH (09:00)
[2019-06-02] MEDS ORDERED: GUAIFENESIN/DEXTROM SYRUP 200MG/20MG 10ML UDC PO PRN (10:12)
[2019-06-02] MEDS: DULOXETINE HCL 30 MG CAP PO SCH (11:49)
--- NOTE | 2019-06-02 11:55 | Hospitalist Progress Note ---
Date of Service June 02, 2019 Assessment & Plan (1) Atrial arrhythmia: Continue admit to PCU on telemetry Per cardiology patient does not have atrial fibrillation rather a sinus tachycardia with form of an ectopic atrial tachycardia. No beta-blockers are required for the rate control as per cardiology. Patient was already placed on metoprolol 25 mg p.o.3 times daily by the offal separator. Continue metoprolol 25 mg 3 times a day until we sort out patient tachycardia.. Hold beta-blockers if heart rate less than 60. No indication for anticoagulation. Present on Admission?: Yes (2) H/O ETOH abuse: Patient states that she drinks 3-year-old with Coke daily. Started on Ativan 1 mg every 4 hours for anxiety/withdrawal syndrome. Restarted duloxetine for her anxiety and depression. Present on Admission?: Yes (3) HTN (hypertension): Patient was not on blood pressure medicine prior to this admission. Her blood pressure is well controlled with hydralazine 5 mg p.o. 4 times daily as needed for systolic blood pressure over 180 and diastolic blood pressure over 100. Present on Admission?: Yes (4) Rash: Not clear origin of rash, per patient daughter has been present for more than 10 years. Improved with desonide 0.05% twice daily. Present on Admission?: Yes (5) Mass of colon: Patient has CT abdomen and pelvis on May 04, 2019 s/p fall. The CT scan is significant for irregular enhancing soft tissue mass of the distal sigmoid colon with extra serosal extension measures up to 5.6 cm. Mildly prominent adjacent pericolonic nodules are suggestive of local lymphatic metastasis. There is no evidence of associated proximal obstruction. Correlation with follow-up with GI consultation and colonoscopy is needed This was discussed with Dr. Cameron who is patient's PCP and who referred her to GI. Patient never made that trip. We consulted GI at this time while patient is hospitalized for other issues. Present on Admission?: Yes (6) COPD (chronic obstructive pulmonary disease): Patient is not in exacerbation. Patient was not on inhalers at home. We will discharge patient home on Lama inhaler(Incruse/Spiriva) Continue with only 1 inhaler given beta agonist night to give tachycardia. Needs outpatient follow-up with pulmonary for PFTs DVT prophylaxis on heparin Present on Admission?: Yes (7) Hypokalemia: Replenished Present on Admission?: Yes Subjective Patient seen and examined at the bedside. Patient is slowly improving and her p.o. intake is better. She is afebrile overnight. Patient denies fever, chills, chest pain, shortness of breath, abdominal pain, frequency, urgency. Patient still has generalized weakness. Review of Systems Review of Systems: All systems reviewed & are unremarkable except as noted in HPI & below Physical Exam Constitutional: WD/WN, vitals as above well developed and + obese Eyes: PERRL, conjunctivae normal, anicteric sclerae ENMT: external ear and nose normal, oropharynx normal Neck: trachea midline, no thyromegaly Respiratory: + respiratory distress, + labored breathing and + uses accessory muscles Auscultation: + crackles and + wheezes Cardiovascular: RRR, no murmur, no edema Rate/Rhythm: + tachycardic Heart Sounds: normal S1, normal S2 and + murmur Vessels: dorsalis pedis pulses present Gastrointestinal (Abdomen): normal bowel sounds, soft, nontender, no hepatosplenomegaly Musculoskeletal: no cyanosis or clubbing, extremities motor strength 5/5 Skin: no rashes, warm and dry Neurologic: patellar DTR's 2+ bilat, sensation intact Psychiatric: A+Ox3, euthymic affect Lymphatic: no cervical or axillary lymphadenopathy Results & Data Vital Signs (Past 12 Hours) Vital Signs Temp Pulse Pulse Pulse Pulse Resp BP 06/02/19 10:00 36.5 C 95 H 21 06/02/19 09:00 105 H 23 06/02/19 08:00 36.5 C 106 H 112 H 23 06/02/19 07:00 115 H 22 06/02/19 06:53 105 H 16 06/02/19 06:00 104 H 104 H 104 H 158/70 H 06/02/19 05:00 104 H 104 H 104 H 22 166/78 H 06/02/19 04:00 108 H 108 H 108 H 28 H 145/71 H 06/02/19 03:00 100 H 100 H 23 166/87 H 06/02/19 02:00 108 H 108 H 108 H 20 155/96 H 06/02/19 01:00 106 H 106 H 106 H 22 162/83 H 06/02/19 00:00 37 C 100 H 95 H 95 H 95 H 25 H 118/64 BP Pulse Ox 06/02/19 10:00 132/81 98 06/02/19 09:00 145/78 H 99 06/02/19 08:00 136/72 98 06/02/19 07:00 133/72 97 06/02/19 06:53 96 06/02/19 06:00 158/70 H 95 06/02/19 05:00 166/78 H 99 06/02/19 04:00 145/71 H 92 06/02/19 03:00 166/87 H 97 06/02/19 02:00 155/96 H 97 06/02/19 01:00 162/83 H 94 06/02/19 00:00 118/64 94 PG Care Time/CCT Total # of Minutes Spent Total Time Spent with Patient: Total time spent is greater than 50% in coordination of care (as documented) at patient's floor/unit and/or counseling patient: Coding Level of Care Code 55409 Subseq Hosp Care Lvl 3 Diagnoses Atrial arrhythmia I49.8 H/O ETOH abuse F10.11 HTN (hypertension) I10 Rash R21 Mass of colon K63.89 COPD (chronic obstructive pulmonary disease) J44.9 Hypokalemia E87.6
[2019-06-02] MEDS: IPRATROPIUM BROMIDE NEB SOLN 0.02% 2.5 ML VIAL NEB SCH ×2 (14:05→23:16)
--- NOTE | 2019-06-02 14:15 | Cardiology Consultation ---
Date of Consultation June 02, 2019 Assessment & Plan (1) Tachycardia: I think the most likely mechanism of her tachycardia was a sinus tachycardia. There was some concern that she had atrial fibrillation around the time of her acute respiratory decompensation. However, I cannot find any recordings which definitively revealed atrial fibrillation. Most of her tachycardia was a regular tachycardia with occasional ectopy. It is possible that this represented some form of an ectopic atrial tachycardia, but there was no distinct transition from sinus rhythm to arrhythmia. The onset and offset was fairly gradual which speaks against atrial fibrillation or a reentrant SVT such as a flutter. This also occurred when she was in a lot of distress. Watching her telemetry today her heart rates are quite variable and certainly rise significantly when she is having coughing spells or respiratory difficulty. The patient was on atenolol as an outpatient. It would seem reasonable to continue a beta-kenia simply in that regard. I do not believe a beta-kenia is otherwise required for rate control. Hopefully as her clinical condition improves we will see less tachycardia. No indication for anticoagulation. History of Present Illness Reason for Consultation: Tachycardia Requesting Physician: Nicolasa Attending Physician: Marcio Samano MD History of Present Illness The patient is an 78-year-old woman without a known history of cardiac disease who was admitted for a presumed respiratory infection and associated respiratory insufficiency. During the course of her hospitalization the patient became acutely dyspneic. She was notably tachycardic at that time as well and required transfer to the intensive care unit for more aggressive treatment. Her heart rate gradually improved. There were some concern that she had an element of atrial fibrillation around the time of her respiratory exacerbation. The patient has an element of forgetfulness and some of the history was provided by her sister who was present at the bedside today. It seems that for several days the patient has had some symptoms of respiratory difficulty culminating in significant coughing and breathing trouble. She did have some subjective fevers and chills as well. The patient has not had a history of cardiac issues. She generally is not aware of any palpitations or racing heartbeats. She is a fairly active individual who was accustomed to ambulation and going up and down stairs. She does report a history of moderate alcohol use. However, due to her recent symptoms she has not been drinking at the local [facility] for approximately 2 weeks. She does not report any symptoms of chest pain either at rest or with activity. She generally does not have limiting dyspnea. She did not endorse symptoms of orthopnea or paroxysmal nocturnal dyspnea. She did suffer a fall recently but this appears to be mechanical in nature. She did not endorse symptoms of dizziness or lightheadedness leading up to that event. She cannot recall any episodes of syncope or loss of consciousness. Allergies Allergy/AdvReac Type Severity Reaction Status Date / Time codeine Allergy Intermediate RASH Verified 06/02/19 08:03 amoxicillin Allergy Unknown UNKNOWN Verified 06/02/19 08:03 azithromycin Allergy Unknown Unknown Verified 06/02/19 08:03 neomycin Allergy Unknown ? RASH Verified 06/02/19 08:03 Sulfa (Sulfonamide Allergy Unknown BODY RASH, Verified 06/02/19 08:03 Antibiotics) YEAST INFECTIONS simvastatin AdvReac Unknown gi Verified 06/02/19 08:03 bleed/distress Home Medications Home Medications Medication Instructions Recorded Confirmed Type atenolol 100 mg tablet 100 mg PO DAILY #90 tab 12/20/18 05/04/19 Rx triamcinolone acetonide 1 appln TOP TID PRN 01/07/19 05/04/19 History cyanocobalamin (vitamin B-12) 1,000 mcg PO DAILY #30 cap 01/08/19 05/04/19 Rx folic acid 1 mg PO DAILY #30 tab 01/08/19 05/04/19 Rx pantoprazole 40 mg tablet,delayed 40 mg PO BID #60 tab 01/22/19 05/04/19 Rx release duloxetine 30 mg capsule,delayed 30 mg PO DAILY #30 cap 03/10/19 05/04/19 Rx release lisinopril 10 mg tablet 10 mg PO DAILY #30 tab 03/20/19 05/04/19 Rx benzonatate 100 mg capsule 100 mg PO TID PRN #30 cap 04/24/19 05/04/19 Rx tramadol 50 mg tablet 50 mg PO Q8H PRN #30 tab 05/12/19 05/12/19 Rx No Known Home Medications 05/31/19 05/31/19 History Patient History Medical History Alcohol intoxication (Resolved) January 2019-alcohol 231 Anxiety (Chronic) Arthritis (Chronic) Chronic kidney disease, stage III (moderate) (Chronic) Closed head injury (Resolved) Eczema Fatty liver (Chronic) GERD without esophagitis (Chronic) Hypertension (Chronic) Pre-diabetes (Chronic) Pulmonary embolism (Resolved) Vitamin D deficiency (Chronic) Surgical History H/O total hysterectomy History of knee replacement R Hx of appendectomy (Resolved) Family History Sister Depression Father Kidney stones Lung cancer Seizures Sister Lung cancer Mother No known health problems Sister Vaginal cancer Other Family history non-contributory Social History Preferred Language: [place] Communication Ability: Effective Visual Impairment: No Limitations Hearing Ability: Normal Bundle Clerk Required: No Beliefs That Will Affect Care: None marital status: Current Living Situation: Family Current Living Situation Comment: lives with twin sister current occupational status: retired Feels Safe at Home: Yes Smoking Status: Former smoker Tobacco Type: cigarettes ; Age Started Using Tobacco: 33 ; Age Quit Using Tobacco: 64 ; Second Hand Exposure: No ; Hx Alcohol Use: Yes Alcohol type: hard liquor Alcohol Intake Frequency: Daily Alcohol Intake Frequency Comment: 3 captain and coke per day Hx Substance Use: No Childhood Exposure to Second-Hand Smoke: Yes Diet Comment: regular caffeine: Yes (coffee) Dental Care, Regularly: Yes Physical Activity Frequency: 3-4 Times per Week Physical Activity Frequency Comment: LIMITED BY PHYSICAL CONDITION Seatbelt Use: always Sunscreen Use: Yes Review of Systems Review of Systems: Unobtainable due to cognitive status Physical Exam Physical Exam: She is alert and oriented x3. Mood affect appear normal. She answered all questions appropriately but was also forgetful at times. She required some prompting by her sister. HEENT: Sclerae are anicteric. Pupils are equal and reactive to light and accommodation. Extraocular movements were intact. Neuro: Cranial nerves intact Neck: Examination of the submandibular region did not reveal any significant lymphadenopathy. Carotids are palpable bilaterally and free of bruits on auscultation. There was no evidence of jugular venous distention. The thyroid was not enlarged. Lungs: Prominent upper airway congestion and expiratory wheezing. Tachypnea. Some increased work of breathing. Notable coughing. Cardiac: The rhythm was regular. S1 and S2 were normal. There are no murmurs on examination. The PMI was not markedly displaced on palpation. Abdomen: The abdomen was soft and nontender. Extremities: Patient has bilateral radial pulses that are equal in intensity. There is no evidence cyanosis or clubbing. There was no evidence of significant peripheral edema bilaterally. Very mild edema. Skin: There are no rashes noted on examination today. Results & Data Vital Signs (Past 12 Hours) Vital Signs Temp Pulse Pulse Pulse Pulse Resp BP 06/02/19 14:04 96 H 18 06/02/19 13:00 36.5 C 118 H 23 06/02/19 12:00 36.5 C 110 H 27 H 06/02/19 11:00 36.5 C 110 H 21 06/02/19 10:00 36.5 C 95 H 21 06/02/19 09:00 105 H 23 06/02/19 08:00 36.5 C 106 H 112 H 23 06/02/19 07:00 115 H 22 06/02/19 06:53 105 H 16 06/02/19 06:00 104 H 104 H 104 H 158/70 H 06/02/19 05:00 104 H 104 H 104 H 22 166/78 H 06/02/19 04:00 108 H 108 H 108 H 28 H 145/71 H 06/02/19 03:00 100 H 100 H 23 166/87 H BP Pulse Ox 06/02/19 14:04 97 06/02/19 13:00 151/82 H 98 06/02/19 12:00 157/88 H 97 06/02/19 11:00 125/80 97 06/02/19 10:00 132/81 98 06/02/19 09:00 145/78 H 99 06/02/19 08:00 136/72 98 06/02/19 07:00 133/72 97 06/02/19 06:53 96 06/02/19 06:00 158/70 H 95 06/02/19 05:00 166/78 H 99 06/02/19 04:00 145/71 H 92 06/02/19 03:00 166/87 H 97 Laboratory Results Abnormal Lab Results 06/01/19 06/01/19 06/01/19 05:37 05:37 15:45 WBC RBC Hgb Hct MCV MCH MCHC RDW Std Deviation RDW Coeff of Maico Plt Count MPV Sodium Potassium Chloride Carbon Dioxide Anion Gap BUN Creatinine Est Cr Clr Drug Dosing Est GFR ( Amer) Est GFR (Non-Af Amer) BUN/Creatinine Ratio Glucose POC Glucose Estimat Average Glucose 123 Hemoglobin A1c 5.9 H Calcium Phosphorus Magnesium Troponin I TSH 0.664 Nasal Screen MRSA (PCR) Negative 06/01/19 06/02/19 06/02/19 16:24 04:24 04:24 WBC 10.50 RBC 3.83 L Hgb 10.4 L Hct 33.0 L MCV 86.2 MCH 27.2 MCHC 31.5 L RDW Std Deviation 51.7 H RDW Coeff of Maico 16.4 H Plt Count 386 MPV 9.1 Sodium 140 Potassium 3.4 L Chloride 110 H Carbon Dioxide 20 L Anion Gap 10.0 BUN 8 Creatinine 0.89 Est Cr Clr Drug Dosing 54.0 Est GFR ( Amer) 70.9 Est GFR (Non-Af Amer) 61.2 BUN/Creatinine Ratio 9.4 L Glucose 109 H POC Glucose 117 H Estimat Average Glucose Hemoglobin A1c Calcium 8.5 Phosphorus 2.8 Magnesium 2.0 Troponin I < 0.015 TSH Nasal Screen MRSA (PCR) 06/02/19 04:24 WBC RBC Hgb Hct MCV MCH MCHC RDW Std Deviation RDW Coeff of Ma[place] Plt Count MPV Sodium Potassium Chloride Carbon Dioxide Anion Gap BUN Creatinine Est Cr Clr Drug Dosing Est GFR ( Amer) Est GFR (Non-Af Amer) BUN/Creatinine Ratio Glucose POC Glucose Estimat Average Glucose Hemoglobin A1c Calcium Phosphorus Magnesium Troponin I Cancelled TSH Nasal Screen MRSA (PCR) Diagnostic Findings Echocardiogram performed yesterday revealed preserved LV systolic function without significant valvular heart disease. PG Care Time/CCT Total # of Minutes Spent Total Time Spent with Patient: Total time spent is greater than 50% in coordination of care (as documented) at patient's floor/unit and/or counseling patient: Coding Level of Care Code 41973 Initial Inpt Care Lvl 3 Diagnoses Tachycardia R00.0
--- NOTE | 2019-06-02 20:07 | Electrocardiogram Report ---
Test Reason : Blood Pressure : / mmHG Vent. Rate : 095 BPM Atrial Rate : 095 BPM P-R Int : 180 ms QRS Dur : 074 ms QT Int : 362 ms P-R-T Axes : 081 063 080 degrees QTc Int : 454 ms Sinus rhythm with occasional Premature ventricular complexes Low voltage QRS Borderline ECG When compared with ECG of 01-JUN-2019 15:46, (unconfirmed) Premature ventricular complexes are now Present Nonspecific T wave abnormality no longer evident in Inferior leads Confirmed by Leroy Dixon ([id number]) on 06/02/2019 8:07:13 PM Referred By: REFERRED SELF Confirmed By:Kirk Dixon
--- NOTE | 2019-06-02 20:17 | Electrocardiogram Report ---
Test Reason : Blood Pressure : / mmHG Vent. Rate : 111 BPM Atrial Rate : 111 BPM P-R Int : 184 ms QRS Dur : 072 ms QT Int : 326 ms P-R-T Axes : 066 058 060 degrees QTc Int : 443 ms Poor data quality, interpretation may be adversely affected likely Sinus tachycardia Low voltage QRS Borderline ECG When compared with ECG of 04-MAY-2019 03:50, Nonspecific T wave abnormality, worse in Inferior leads Confirmed by Leroy Dixon ([id number] on 06/02/2019 8:17:25 PM Referred By: REFERRED SELF Confirmed By:Kirk Dixon
[2019-06-03] MEDS: IPRATROPIUM BROMIDE NEB SOLN 0.02% 2.5 ML VIAL NEB SCH ×3 (07:16→22:18)
[2019-06-03] MEDS: METOPROLOL TARTRATE 25 MG TAB PO SCH ×3 (08:00→21:07)
[2019-06-03] MEDS: DULOXETINE HCL 30 MG CAP PO SCH (08:00)
--- NOTE | 2019-06-03 08:00 | Hospitalist Progress Note ---
Date of Service June 03, 2019 Assessment & Plan (1) Atrial arrhythmia: Continue admit to PCU on telemetry Per cardiology patient does not have atrial fibrillation rather a sinus tachycardia with form of an ectopic atrial tachycardia. No beta-blockers are required for the rate control as per cardiology. Patient was already placed on metoprolol 25 mg p.o.3 times daily by the metal fitter. Continue metoprolol 25 mg 3 times a day until we sort out patient tachycardia. Hold beta-blockers if heart rate less than 60. No indication for anticoagulation. (2) H/O ETOH abuse: Patient states that she drinks 3-year-old with Coke daily. Started on Ativan 1 mg every 4 hours for anxiety/withdrawal syndrome. Restarted duloxetine for her anxiety and depression. (3) HTN (hypertension): Patient was not on blood pressure medicine prior to this admission. Her blood pressure is well controlled with hydralazine 5 mg p.o. 4 times daily as needed for systolic blood pressure over 180 and diastolic blood pressure over 100. (4) Rash: Not clear origin of rash, per patient daughter has been present for more than 10 years. Improved with desonide 0.05% twice daily. (5) Mass of colon: Patient has CT abdomen and pelvis on May 04, 2019 s/p fall. The CT scan is significant for irregular enhancing soft tissue mass of the dista l sigmoid colon with extra serosal extension measures up to 5.6 cm. Mildly prominent adjacent pericolonic nodules are suggestive of local lymphatic metastasis. There is no evidence of associated proximal obstruction. Correlation with follow-up with GI consultation and colonoscopy is needed This was discussed with Dr. Cameron who is patient's PCP and who referred her to GI. Patient never made that trip. Patient scheduled for colonoscopy tomorrow. Clear liquid diet Discussed with GI. Begin prep this afternoon. K is slightly low and may decrease with colon prep, will order a one time dose of KCl 40meq po now. Hold SQ heparin until after colonoscopy. NPO after midnight. Cardiology already stratified patient for the risks and stated that she would be okay to have a procedure done and to go under the anesthesia. (6) COPD (chronic obstructive pulmonary disease): Patient is not in exacerbation. Patient was not on inhalers at home. We will discharge patient home on Lama inhaler(Incruse/Spiriva) Continue with only 1 inhaler given beta agonist night to give tachycardia. Needs outpatient follow-up with pulmonary for PFTs DVT prophylaxis on heparin (7) Hypokalemia: Replenished Subjective Patient seen and examined at the bedside. Patient is slowly improving and her p.o. intake is better. She is afebrile overnight. Patient denies fever, chills, chest pain, shortness of breath, abdominal pain, frequency, urgency. Patient still has generalized weakness. Review of Systems Review of Systems: All systems reviewed & are unremarkable except as noted in HPI & below Physical Exam Constitutional: WD/WN, vitals as above well developed and + obese Eyes: PERRL, conjunctivae normal, anicteric sclerae ENMT: external ear and nose normal, oropharynx normal Neck: trachea midline, no thyromegaly Respiratory: no respiratory distress, no labored breathing and does not use accessory muscles Auscultation: no crackles and no wheezes Cardiovascular: RRR, no murmur, no edema Rate/Rhythm: + tachycardic Heart Sounds: normal S1, normal S2 and + murmur Vessels: dorsalis pedis pulses present Gastrointestinal (Abdomen): normal bowel sounds, soft, nontender, no hepatosplenomegaly Musculoskeletal: no cyanosis or clubbing, extremities motor strength 5/5 Skin: no rashes, warm and dry Neurologic: patellar DTR's 2+ bilat, sensation intact Psychiatric: A+Ox3, euthymic affect Lymphatic: no cervical or axillary lymphadenopathy Results & Data Vital Signs (Past 12 Hours) Vital Signs Temp Pulse Pulse Resp BP Pulse Ox 06/03/19 07:24 36.8 C 93 H 16 143/83 H 94 06/03/19 07:16 91 H 16 94 06/03/19 03:49 36.7 C 112 H 19 138/94 94 06/03/19 00:50 95 H 06/02/19 23:35 36.6 C 88 18 136/82 95 06/02/19 23:16 94 H 16 96 06/02/19 23:09 36.8 C 90 19 135/80 94 PG Care Time/CCT Total # of Minutes Spent Total Time Spent with Patient: Total time spent is greater than 50% in coordination of care (as documented) at patient's floor/unit and/or counseling patient: Coding Level of Care Code 38389 Subseq Hosp Care Lvl 3 Diagnoses Atrial arrhythmia I49.8 H/O ETOH abuse F10.11 HTN (hypertension) I10 Rash R21 Mass of colon K63.89 COPD (chronic obstructive pulmonary disease) J44.9 Hypokalemia E87.6
[2019-06-03] MEDS: HEPARIN SOD 5,000 UNIT/0.5 ML VIAL SQ SCH (08:01)
[2019-06-03] MEDS: DESONIDE CR 15 GM TUBE EXT SCH ×2 (08:04→21:07)
--- NOTE | 2019-06-03 09:34 | Gastrointestinal Consultation ---
Date of Consultation June 03, 2019 Assessment & Plan (1) Mass of colon: 5cm sigmoid colon mass with adjacent lymphadenopathy concerning for colon cancer with local mets. Plan: 1. Colonoscopy tomorrow. This was discussed with the primary hospitalist who tells me that she discussed with cardiology who does not feel that there are any contraindications to sedation from their standpoint. 2. Clear liquid today. 3. Begin prep this afternoon. 4. K is slightly low and may decrease with colon prep, will order a one time dose of KCl 40meq po now. 5. Hold SQ heparin until after colonoscopy. 6. NPO after midnight. I was able to speak with her daughter, Gretchen Massey and explain the indication for colonoscopy as well as risks of colonoscopy and sedation. She defers decision to her mother but tells me that she would agree to going forward with colonoscopy to get a tissue diagnosis, that likely she and her mother would chose for the pt to go forward with surgery/chemo if cancer were diagnosed. Present on Admission?: Yes Supervising Physician Co-Signing Physician Notes Attending attestation I have seen, examined this patient, and agree with the findings and above by our mid-level provider ALYSSA Shepherd, with the following additions -We will plan on colonoscopy tomorrow to rule out colonic mass History of Present Illness Reason for Consultation: Sigmoid colon mass Requesting Physician: Dr. Samano Attending Physician: Marcio Samano MD History of Present Illness Ms. Jumana Duffy is an 78 yr old female pt of Dr. Yessenia Cameron with a hx of increased alcohol intake and recent falls (according to the nurse at her PCP with whom I spoke to gather information). She also has a hx of COPD, HTN, pre- DM, CKD-3, PE (not on chronic anticoagulation), anxiety. She was brought to [facility] on 06/01 for SOB. On arrival CT and CXR of the chest with bronchial wall thickening but no evidence of effusion, pneumonia or PE. Her SOB has resolved. Currently, no need for O2 use. It was noticed that, during an ED visit for a fall in April, a CT of the abd/pelvis suggested a 5 cm sigmoid lesion with surrounding lymphadenopathy. The pt has a poor memory but did recall that she was told that she has a "rectum mass," and that, "they haven't decided what to do about this yet." I spoke with the primary hospitalist and the nurse at her PCPs office. She had recently been referred to [facility], but hasn't had an appt yet. I then spoke to the [facility] here in the hospital today and it was decided that, because our group has done prior endoscopy for this pt, that our group should go forward with the consult. Again, the pt seems to be a poor historian but denies any nausea, vomiting, constipation, abdominal pain, blood in stools, narrow stools or weight loss. She does report recent diarrhea, "a few times a day." The pt agrees to undergo colonoscopy which will likely take place tomorrow. Allergies Allergy/AdvReac Type Severity Reaction Status Date / Time codeine Allergy Intermediate RASH Verified 06/02/19 08:03 amoxicillin Allergy Unknown UNKNOWN Verified 06/02/19 08:03 azithromycin Allergy Unknown Unknown Verified 06/02/19 08:03 neomycin Allergy Unknown ? RASH Verified 06/02/19 08:03 Sulfa (Sulfonamide Allergy Unknown BODY RASH, Verified 06/02/19 08:03 Antibiotics) YEAST INFECTIONS simvastatin AdvReac Unknown gi Verified 06/02/19 08:03 bleed/distress Home Medications Home Medications Medication Instructions Recorded Confirmed Type atenolol 100 mg tablet 100 mg PO DAILY #90 tab 12/20/18 05/04/19 Rx triamcinolone acetonide 1 appln TOP TID PRN 01/07/19 05/04/19 History cyanocobalamin (vitamin B-12) 1,000 mcg PO DAILY #30 cap 01/08/19 05/04/19 Rx folic acid 1 mg PO DAILY #30 tab 01/08/19 05/04/19 Rx pantoprazole 40 mg tablet,delayed 40 mg PO BID #60 tab 01/22/19 05/04/19 Rx release duloxetine 30 mg capsule,delayed 30 mg PO DAILY #30 cap 03/10/19 05/04/19 Rx release lisinopril 10 mg tablet 10 mg PO DAILY #30 tab 03/20/19 05/04/19 Rx benzonatate 100 mg capsule 100 mg PO TID PRN #30 cap 04/24/19 05/04/19 Rx tramadol 50 mg tablet 50 mg PO Q8H PRN #30 tab 05/12/19 05/12/19 Rx No Known Home Medications 05/31/19 05/31/19 History Patient History Medical History Alcohol intoxication (Resolved) January 2019-alcohol 231 Anxiety (Chronic) Arthritis (Chronic) Chronic kidney disease, stage III (moderate) (Chronic) Closed head injury (Resolved) Eczema Fatty liver (Chronic) GERD without esophagitis (Chronic) Hypertension (Chronic) Pre-diabetes (Chronic) Pulmonary embolism (Resolved) Vitamin D deficiency (Chronic) Surgical History H/O total hysterectomy History of knee replacement R Hx of appendectomy (Resolved) Family History Sister Depression Father Kidney stones Lung cancer Seizures Sister Lung cancer Mother No known health problems Sister Vaginal cancer Other Family history non-contributory Social History Preferred Language: French Communication Ability: Effective Visual Impairment: No Limitations Hearing Ability: Normal Precision Assembly Inspector Required: No Beliefs That Will Affect Care: None marital status: Current Living Situation: Family Current Living Situation Comment: lives with twin sister current occupational status: retired Feels Safe at Home: Yes Smoking Status: Former smoker Tobacco Type: cigarettes ; Age Started Using Tobacco: 33 ; Age Quit Using Tobacco: 64 ; Second Hand Exposure: No ; Hx Alcohol Use: Yes Alcohol type: hard liquor Alcohol Intake Frequency: Daily Alcohol Intake Frequency Comment: 3 captain and coke per day Hx Substance Use: No Childhood Exposure to Second-Hand Smoke: Yes Diet Comment: regular caffeine: Yes (coffee) Dental Care, Regularly: Yes Physical Activity Frequency: 3-4 Times per Week Physical Activity Frequency Comment: LIMITED BY PHYSICAL CONDITION Seatbelt Use: always Sunscreen Use: Yes Review of Systems Review of Systems: ROS: Gen: Denies weakness, fevers, weight loss Eyes: No eye redness, or pain, no recent vision changes Resp: SOB (now resolved), no cough Cardio: No palpitations/irregular beats, no chest pain GI: See HPI : Denies pain on urination Skin: No jaundice, itching or new rashes Physical Exam Constitutional: WD/WN, vitals as above Eyes: PERRL, conjunctivae normal, anicteric sclerae ENMT: external ear and nose normal, oropharynx normal Neck: trachea midline, no thyromegaly Respiratory: normal respiratory effort, lungs clear to auscultation Cardiovascular: RRR, no murmur, no edema Gastrointestinal (Abdomen): normal bowel sounds, soft, nontender, no hepatosplenomegaly obese Musculoskeletal: no cyanosis or clubbing, extremities motor strength 5/5 Skin: + rash (on chest, dry/flaky) Neurologic: PERRL, EOMI, accommodation nl, no face palsy, no dysarthria Psychiatric: A+Ox3, euthymic affect Speech: normal rate/rhythm/volume of speech Affect: no depressed affect and no anxious affect Cognition: recent memory grossly intact Insight: + limited insight Lymphatic: no cervical or axillary lymphadenopathy Results & Data Vital Signs (Past 12 Hours) Vital Signs Temp Pulse Pulse Resp BP Pulse Ox 06/03/19 07:24 36.8 C 93 H 16 143/83 H 94 06/03/19 07:16 91 H 16 94 06/03/19 03:49 36.7 C 112 H 19 138/94 94 06/03/19 00:50 95 H 06/02/19 23:35 36.6 C 88 18 136/82 95 06/02/19 23:16 94 H 16 96 06/02/19 23:09 36.8 C 90 19 135/80 94 Laboratory Results WBC 11->10.5, Hb 10.4, Hct 33, Platelets 386, Na 140, K 3.4, BUN 8, Cr 0.[address] abd/pelvis 05/04/19: 1. No acute posttraumatic abnormality identified within the chest, abdomen or pelvis. 2. No acute fracture or evidence of acute solid organ injury. 3. Irregular enhancing soft tissue mass of the distal sigmoid colon with extra serosal extension measures up to 5.6 cm. Mildly prominent adjacent pericolonic nodules are suggestive of local lymphatic metastasis. There is no evidence of associated proximal obstruction. Correlation with follow-up GI consultation and colonoscopy is needed. 4. No evidence of distant metastatic disease. 5. Small subcutaneous hematoma superior lateral to the right hip. 6. Additional findings as above. Medications Administered Heparin SQ Q 12 hrs. No NSAIDs
[2019-06-03] MEDS ORDERED: POTASSIUM CHLORIDE 20 MEQ TABCR PO STA (09:50)
[2019-06-03] MEDS ORDERED: LAVAGE SOLUTION 4000ML PO SCH (11:00)
--- NOTE | 2019-06-03 13:53 | Cardiology Progress Note ---
Date of Service June 03, 2019 Assessment & Plan (1) Tachycardia: Her heart rate is much improved today. This correlates with an improvement in her clinical condition overall. I do not believe she had a significant cardiac arrhythmia. The possibility of an ectopic atrial tachycardia exists, but I do think the most likely explanation for her change in heart rate was simply sinus tachycardia. This arrhythmia should not preclude colonoscopy. I do not believe she has any specific cardiac concern regarding the proposed colonoscopy tomorrow. I do not believe any specific precautions are necessary. She could resume her outpatient medical therapy with atenolol at the time of discharge. Template she requires any additional cardiac evaluation. Will sign off from the case at this time. If there are additional questions or concerns please call. Subjective This afternoon the patient feels much better. She states that she was somewhat delirious yesterday and apparently had difficulty with mentation. She feels much better today and is able to think clearly. States that her breathing is improved. Her cough is improved. No significant dizziness. Review of Systems Review of Systems: Per HPI Physical Exam Physical Exam: She is alert and oriented x3. Mood affect appear normal. She answered all questions appropriately. HEENT: Sclerae are anicteric. Pupils are equal and reactive to light and accommodation. Extraocular movements were intact. Neuro: Cranial nerves intact Lungs: Reduced breath sounds overall. Occasional crackle in the bases with some more bronchial breath sounds and occasional expiratory wheezing. Cardiac: The rhythm was regular. S1 and S2 were normal. There are no murmurs on examination. The PMI was not markedly displaced on palpation. Abdomen: The abdomen was soft and nontender. Extremities: Patient has bilateral radial pulses that are equal in intensity. There is no evidence cyanosis or clubbing. Skin: There are no rashes noted on examination today. Results & Data Vital Signs (Past 12 Hours) Vital Signs Temp Pulse Resp BP BP Pulse Ox 06/03/19 11:37 36.8 C 90 18 148/81 H 95 06/03/19 07:24 36.8 C 93 H 16 143/83 H 94 06/03/19 07:16 91 H 16 94 06/03/19 03:49 36.7 C 112 H 19 138/94 94 PG Care Time/CCT Total # of Minutes Spent Total Time Spent with Patient: Total time spent is greater than 50% in coordination of care (as documented) at patient's floor/unit and/or counseling patient: Coding Level of Care Code 25112 Subseq Hosp Care Lvl 3 Diagnoses Tachycardia R00.0
[2019-06-04 06:32] LABS: Basophils # (auto) 0.02 K/uL (0-0.2); Basophils % (auto) 0.2 %; Eosinophils # (auto) 0.15 K/uL (0-0.5); Eosinophils % (auto) 1.9 %; Hematocrit (blood only) 34.4 % (37-47); Immature Granulocytes # (auto) 0.01 K/uL (0.00-0.02); Immature Granulocytes % (auto) 0.1 %; Lymphocytes # (auto) 2.04 K/uL (1.2-3.4); Lymphocytes % (auto) 25.5 %; Mean Corpuscular Hemoglobin 27.5 pg (25-34); Mean Platelet Volume 9.6 fL (7.4-10.4); Monocytes # (auto) 0.92 K/uL (0.11-0.59); Monocytes % (auto) 11.5 %; Neutrophils # (auto) 4.87 K/uL (1.4-6.5); Neutrophils % (auto) 60.8 %; Platelet Count 350 K/uL (130-400); RDW Standard Deviation 50.5 fL (36.4-46.3); White Blood Count 8.01 K/uL (4.8-10.8)
[2019-06-04 07:07] LABS: Albumin Level 2.7 gm/dl (3.4-5.0); BUN Creatinine Ratio 14.9 (10-20); Calcium 8.7 mg/dl (8.5-10.1); Creatinine Clr Calc Pharmacy 69.2 ml/min; Est GFR (African American) 94.8; Est GFR (Non-African American) 81.8
[2019-06-04 07:10] LABS: Bilirubin,Total 0.6 mg/dl (0.2-1); Globulin 2.8 gm/dl (2.5-4.0); Total Protein 5.5 gm/dl (6.4-8.2)
[2019-06-04] MEDS: IPRATROPIUM BROMIDE NEB SOLN 0.02% 2.5 ML VIAL NEB SCH ×2 (07:12→15:09)
[2019-06-04] MEDS: METOPROLOL TARTRATE 25 MG TAB PO SCH ×3 (08:26→20:37)
[2019-06-04] MEDS: DESONIDE CR 15 GM TUBE EXT SCH ×2 (08:26→20:37)
[2019-06-04] MEDS: DULOXETINE HCL 30 MG CAP PO SCH (08:26)
--- NOTE | 2019-06-04 10:43 | Gastroenterology Progress Note ---
Date of Service June 04, 2019 Assessment & Plan (1) Abnormal CT scan, gastrointestinal tract: Ms. Duffy underwent CT in Apr 2019 with suggestion of a 5 cm sigmoid colon mass. Colon is the dx of exlusion and plan is for colonoscopy today by Dr. Patel to obtain tissue diagnosis. Present on Admission?: Yes Supervising Physician Co-Signing Physician Notes Attending attestation I have seen, examined this patient, and agree with the findings and above by our mid-level provider ALYSSA Enriquez, with the following additions -Plan for Colonoscopy today for abnormal CT scan Subjective Ms. Jumana Duffy is an 78 yr old female pt of Dr. Cameron with a hx of increased alcohol intake, recent falls, COPD, HTN, pre-DM, CKD-3, PE (not on chronic anticoagulation), anxiety. She was brought to [facility] on 06/01 for SOB. GI is consulted for CT abd/pelvis completed in April 2019 with suggestion of a 5 cm sigmoid lesion with surrounding lymphadenopathy. Colonoscopy is planned for today. Daughter is at bedside. Pt drank all of the Golytely prep and most recent BMs clear. No nausea/vomiting or abdominal pain. She is hemodynamically stable. Hb 11. K 4.0. Review of Systems Review of Systems: ROS: Gen: Denies weakness, fevers, weight loss Eyes: No eye redness, or pain, no recent vision changes Resp: SOB/cough much improved Cardio: No palpitations/irregular beats, no chest pain GI: See HPI : Denies pain on urination Skin: No jaundice, itching or new rashes Physical Exam Constitutional: WD/WN, vitals as above Eyes: PERRL, conjunctivae normal, anicteric sclerae ENMT: external ear and nose normal, oropharynx normal Neck: trachea midline, no thyromegaly Respiratory: normal respiratory effort, lungs clear to auscultation Cardiovascular: RRR, no murmur, no edema Gastrointestinal (Abdomen): normal bowel sounds, soft, nontender, no hepatosplenomegaly (obese) Skin: dry, flat rash on the chest Neurologic: PERRL, EOMI, accommodation nl, no face palsy, no dysarthria Psychiatric: A+Ox3, euthymic affect Lymphatic: no cervical or axillary lymphadenopathy Results & Data Vital Signs (Past 12 Hours) Vital Signs Temp Pulse Pulse Resp BP BP Pulse Ox 06/04/19 07:54 37.0 C 95 H 18 129/89 92 06/04/19 07:12 104 H 18 94 06/04/19 07:08 36.7 C 107 H 22 146/87 H 94 06/04/19 00:05 36.6 C 90 18 133/71 95 06/03/19 22:46 92 H Laboratory Results WBC 8, Hb 11, hct 34, Platets 350, Na 138, K 4.0, BUN 10, Cr .7 Diagnostic Findings 1. No evidence of pulmonary thromboembolic disease, pleural effusion or airspace consolidation to suggest pneumonia. 2. Bilateral bronchial wall thickening. Correlate clinically to exclude bronchitis. 3. Subacute healing minimally displaced fractures of the anterolateral left fourth through sixth ribs. 4. Cardiomegaly. 5. Small hiatal hernia.
--- NOTE | 2019-06-04 11:39 | Anesthesiology Consultation ---
Date of Service June 04, 2019 Assessment & Plan Chart Review Chart Review: Acceptable Risk for Surgery and Patient NOT seen in Pre Admission Testing Consults Requested none History Surgery Operation Date: 06/04/19 16:00 Proposed Procedures p Colonoscopy Dr Jorge Patel Height/Weight Height: 5 ft 6 in Weight: 82.1 kg Allergies Allergy/AdvReac Type Severity Reaction Status Date / Time codeine Allergy Intermediate RASH Verified 06/02/19 08:03 amoxicillin Allergy Unknown UNKNOWN Verified 06/02/19 08:03 azithromycin Allergy Unknown Unknown Verified 06/02/19 08:03 neomycin Allergy Unknown ? RASH Verified 06/02/19 08:03 Sulfa (Sulfonamide Allergy Unknown BODY RASH, Verified 06/02/19 08:03 Antibiotics) YEAST INFECTIONS simvastatin AdvReac Unknown gi Verified 06/02/19 08:03 bleed/distress Medications Home Medications Medication Instructions Recorded Confirmed Last Taken atenolol 100 mg tablet 100 mg PO DAILY #90 tab 12/20/18 05/04/19 05/03/19 triamcinolone acetonide 1 appln TOP TID PRN 01/07/19 05/04/19 Unknown cyanocobalamin (vitamin B-12) 1,000 mcg PO DAILY #30 cap 01/08/19 05/04/19 05/03/19 folic acid 1 mg PO DAILY #30 tab 01/08/19 05/04/19 05/03/19 pantoprazole 40 mg tablet,delayed 40 mg PO BID #60 tab 01/22/19 05/04/19 05/03/19 release duloxetine 30 mg capsule,delayed 30 mg PO DAILY #30 cap 03/10/19 05/04/19 05/03/19 release lisinopril 10 mg tablet 10 mg PO DAILY #30 tab 03/20/19 05/04/19 05/03/19 benzonatate 100 mg capsule 100 mg PO TID PRN #30 cap 04/24/19 05/04/19 Unknown tramadol 50 mg tablet 50 mg PO Q8H PRN #30 tab 05/12/19 05/12/19 Unknown No Known Home Medications 05/31/19 05/31/19 Unknown Active Medications Generic Name Dose Route Start Last Admin Trade Name Freq PRN Reason Stop Dose Admin Desonide 1 appln 06/01/19 10:45 06/04/19 08:26 Desowen 0.05% EXT 07/01/19 10:44 1 appln BID TAVARES Administration Duloxetine HCl 30 mg 06/02/19 09:15 06/04/19 08:26 Cymbalta PO 07/02/19 09:14 30 mg QAM TAVARES Administration Heparin Sodium (Porcine) 5,000 units 05/31/19 21:00 06/03/19 08:01 Heparin Sodium (Porcine) SQ 06/30/19 20:59 5,000 units Q12 TAVARES Administration Hydralazine HCl 5 mg 06/01/19 10:50 06/03/19 08:00 Apresoline PO 06/30/19 18:13 5 mg QID PRN Administration SBP > 180 or DBP > 100 Ipratropium Dorothy 0.5 mg 06/02/19 15:00 06/04/19 07:12 Atrovent 0.02% 0.5mg/2.5ml NEB 07/02/19 14:59 0.5 mg Q8R TAVARES Administration Metoprolol Tartrate 25 mg 06/02/19 14:00 06/04/19 08:26 Lopressor PO 07/02/19 13:59 25 mg TID TAVARES Administration NPO Date Last Intake of Fluids: 06/04/19 Time Last Intake of Fluids: 07:00 Date Last Intake of Solids: 06/03/19 Time Last Intake of Solids: 08:00 Past Medical History Medical History Alcohol intoxication (Resolved) January 2019-alcohol 231 Anxiety (Chronic) Arthritis (Chronic) Chronic kidney disease, stage III (moderate) (Chronic) Closed head injury (Resolved) Eczema Fatty liver (Chronic) GERD without esophagitis (Chronic) Hypertension (Chronic) Pre-diabetes (Chronic) Pulmonary embolism (Resolved) Vitamin D deficiency (Chronic) Past Family History Family History Sister Depression Father Kidney stones Lung cancer Seizures Sister Lung cancer Mother No known health problems Sister Vaginal cancer Other Family history non-contributory Past Surgical History Surgical History H/O total hysterectomy History of knee replacement R Hx of appendectomy (Resolved) Social History Smoking Status: Former smoker tobacco type: cigarettes Do You Dip or Chew Tobacco: No Hx Alcohol Use: Yes Alcohol type: hard liquor alcohol intake frequency: 0-2 drinks per day Alcohol Intake Frequency Comment: several a week, 2 a day Hx Substance Use: No substance use type: does not use Physical Exam Vital Signs Last Vital Signs Temp 37.2 C 06/04/19 11:06 Pulse 88 06/04/19 11:06 Resp 18 06/04/19 11:06 BP 153/82 H 06/04/19 11:06 Pulse Ox 94 06/04/19 11:06 Testing Laboratory Results 06/04/19 06:09 06/04/19 06:09 PT 10.3 Seconds (9.0-12.0) 05/31/19 11:35 INR 1.0 (0.9-1.1) 05/31/19 11:35 APTT 24.0 Seconds (21.0-31.0) 05/31/19 11:35 Hemoglobin A1c 5.9 % (4.5-5.6) H 06/01/19 05:37 Urine Color Dark Yellow 05/31/19 12:22 Urine Appearance Clear (Clear) 05/31/19 12:22 Urine pH 6.0 (4.5-7.5) 05/31/19 12:22 Ur Specific [place] 1.026 (1.000-1.030) 05/31/19 12:22 Urine Protein 1+ (Negative) H 05/31/19 12:22 Urine Glucose (UA) Negative (Negative) 05/31/19 12:22 Urine Ketones 2+ (Negative) H 05/31/19 12:22 Urine Nitrite Negative (Negative) 05/31/19 12:22 Ur Leukocyte Esterase Trace (Negative) H 05/31/19 12:22 Urine WBC (Auto) 1-5 /hpf (0-5) 05/31/19 12:22 Urine RBC (Auto) 0-4 /hpf (0-4) 05/31/19 12:22 U Hyaline Cast (Auto) 1-5 /lpf (0-5) 05/31/19 12:22 U Epithel Cells (Auto) >30 /lpf (0-5) H 05/31/19 12:22 Urine Bacteria (Auto) Negative (Negative) 05/31/19 12:22 06/02/19 12:30 Gram Stain - Final Sputum, Expectorated Sputum Culture - Final 05/31/19 11:35 Aerobic Blood Culture - Preliminary Blood No growth in Aerobic bottle after 48 hours. Anaerobic Blood Culture - Preliminary No growth in Anaerobic bottle after 48 hours. 05/31/19 12:01 Aerobic Blood Culture - Preliminary Blood No growth in Aerobic bottle after 48 hours. Anaerobic Blood Culture - Preliminary No growth in Anaerobic bottle after 48 hours.
[2019-06-04] MEDS ORDERED: PROPOFOL IV EMULSION 10 MG/ML 20 ML VIAL IV ONE (11:40)
[2019-06-04] MEDS ORDERED: LIDOCAINE HCL 2% 2 ML VIAL/AMP(20MG/ML) INFIL ONE (11:40)
[2019-06-04] MEDS ORDERED: fentaNYL citrate 100 MCG/2 ML VIAL ONE (11:40)
[2019-06-04] MEDS ORDERED: ATROPINE SULFATE 0.1 MG/ML 10ML SYR IV PRN ×2 (11:41→11:50)
[2019-06-04] MEDS ORDERED: ePHEDrine sulfate 50 MG/ML AMP IV PRN ×2 (11:41→11:50)
[2019-06-04] MEDS ORDERED: ENDOSCOPIC MARKER 5 ML SYR TOP ONE (12:06)
--- NOTE | 2019-06-04 12:36 | GI REPORT ---
Patient Name: Jumana Duffy Procedure Date: 06/04/2019 11:59 AM Date of : 1940 Admit Type: Inpatient Age: 78 Gender: Female Attending MD: Mike Patel MD Procedure: Colonoscopy Providers: Mike Patel MD Referring MD: Yessenia Cameron Indications: Abnormal CT of the GI tract Medicines: Monitored Anesthesia Care Complications: No immediate complications. Estimated blood loss: None. Estimated Blood Loss: Estimated blood loss: none. Procedure: Pre-Anesthesia Assessment: - Pre-Anesthesia Assessment: - Prior to the procedure, a History and Physical was performed, and patient medications, allergies and sensitivities were reviewed. The patient's tolerance of previous anesthesia was reviewed. Please see [facility] for complete details. - The risks and benefits of the procedure and the sedation options and risks were discussed with the patient. All questions were answered and informed consent was obtained. - Patient identification and proposed procedure were verified prior to the procedure by the physician and the nurse. The procedure was verified in the pre-procedure area in the procedure room. After obtaining informed consent, the endoscope was passed carefully and meticuously under direct vision and only advanced when the lumen was clearly identified, C02 insuflation was utilized throughout the entirity of the procedure. Throughout the procedure, the patient's blood pressure, pulse, and oxygen saturations were monitored continuously. After I obtained informed consent, the scope was passed under direct vision. Throughout the procedure, the patient's blood pressure, pulse, and oxygen saturations were monitored continuously. The scope was introduced through the anus and advanced to the cecum, identified by appendiceal orifice and ileocecal valve. The colonoscopy was performed without difficulty. The patient tolerated the procedure well. The quality of the bowel preparation was good. Findings: A 7 mm polyp was found in the cecum. The polyp was sessile. The polyp was removed with a saline injection-lift technique using a cold snare. Resection and retrieval were complete. To prevent bleeding post-intervention, one hemostatic clip was successfully placed. There was no bleeding during, or at the end, of the procedure. A polypoid and ulcerated partially obstructing large mass was found in the proximal rectum, in the mid rectum and in the distal sigmoid colon. The mass was circumferential. The mass measured eight cm in length. Oozing was present. This was biopsied with a cold forceps for histology. Area was tattooed with an injection of Spot (carbon black) on both the proximal and distal margins of the tumor. The tumor involves the middle and most proximal rectal valves, but extends back proximally several cm. At maximum distention, the tumor distally is approximaly 6-7 cm from verge. Impression: - One 7 mm polyp in the cecum, removed using injection-lift and a cold snare. Resected and retrieved. Clip was placed. 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 Biopsied. Tattooed. Recommendation: - Return patient to [facility] for [facility] care. - Surgical consultation - Oncology and Radiation oncology consultations Mike Patel MD 06/04/2019 12:35:28 PM This report has been signed electronically. Note Initiated On: 06/04/2019 11:59 AM Number of Addenda: 0 I attest to the content of the Intraoperative Record and orders documented therein, exceptions below {[id number]}
--- NOTE | 2019-06-04 15:03 | Anesthesiology Progress Note ---
Date of Service June 04, 2019 Anesthesia Post Procedure Vital Signs Vital Signs: Temp Pulse Pulse Resp BP BP Pulse Ox 06/04/19 13:31 36.6 C 96 H 18 160/85 H 95 06/04/19 13:00 72 18 135/57 L 97 06/04/19 12:45 87 16 140/68 93 06/04/19 12:31 88 16 113/53 L 96 06/04/19 11:06 37.2 C 88 18 153/82 H 94 06/04/19 07:54 37.0 C 95 H 18 129/89 92 06/04/19 07:12 104 H 18 94 06/04/19 07:08 36.7 C 107 H 22 146/87 H 94 06/04/19 00:05 36.6 C 90 18 133/71 95 06/03/19 22:46 92 H 06/03/19 22:18 77 18 93 06/03/19 19:57 36.6 C 83 20 145/71 H 93 06/03/19 15:54 36.8 C 98 H 16 135/98 97 06/03/19 15:25 102 H 18 96 Transfer of Care Handoff Completed per policy Notes Mental Status: alert / awake / arousable Patient Amnestic to Procedure: Yes Nausea / Vomiting: adequately controlled Pain: adequately controlled Airway Patency, RR, SpO2: stable & adequate BP & HR: stable & adequate Hydration State: stable & adequate Anesthetic Complications: no major complications apparent and Pt Satisfied with anesthetic care
--- NOTE | 2019-06-04 16:46 | Surgery Consultation ---
Date of Consultation June 04, 2019 Assessment & Plan (1) Mass of colon: This is an 78y F who presented to the [facility] with respiratory distress. During her admission she was worked up for a colonic mass seen on a recent CT scan. GI performed a colonoscopy today that revealed a likely malignant partially obstructing tumor in the proximal rectum, in the mid rectum and in the distal sigmoid colon. GI consulted surgery for further evaluation. We spoke with the patient and her family and listed her options including initiating chemo/radiation, obtaining a second opinion at a tertiary care center, and/or continuing to monitor patient and treat with conservative/palliative measures if needed, etc. Patient and family wish to have some time to discuss prior to making a decision. Okay for patient to resume a full liquid diet in the interim. We will continue to follow along pending their wishes. Patient seen and examined with Dr. Dean. History of Present Illness Attending Physician: Jeffrey Salmeron History of Present Illness This is an 78y F with a PMH of alcohol abuse, COPD, HTN, GERD, and dementia who presented to the [facility] on 05/31/19 with respiratory distress and tachy arrhythmia. During the patient's admission the family noted that the patient had a CT scan in the recent past that revealed a "rectal mass" further prompting GI evaluation. While patient was admitted GI was agreeable to evaluate the patient and performed a colonoscopy today. Colonoscopy revealed a 7mm cecal polyp that was removed in addition to a likely malignant partially obstructing tumor in the proximal rectum, mid rectum, and distal sigmoid that was biopsied and tattooed. Surgery was consulted for further evaluation. The patient denies nausea/vomiting and has been tolerating a diet. She endorses + diarrhea. Allergies Allergy/AdvReac Type Severity Reaction Status Date / Time codeine Allergy Intermediate RASH Verified 06/02/19 08:03 amoxicillin Allergy Unknown UNKNOWN Verified 06/02/19 08:03 azithromycin Allergy Unknown Unknown Verified 06/02/19 08:03 neomycin Allergy Unknown ? RASH Verified 06/02/19 08:03 Sulfa (Sulfonamide Allergy Unknown BODY RASH, Verified 06/02/19 08:03 Antibiotics) YEAST INFECTIONS simvastatin AdvReac Unknown gi Verified 06/02/19 08:03 bleed/distress Home Medications Home Medications Medication Instructions Recorded Confirmed Type atenolol 100 mg tablet 100 mg PO DAILY #90 tab 12/20/18 05/04/19 Rx triamcinolone acetonide 1 appln TOP TID PRN 01/07/19 05/04/19 History cyanocobalamin (vitamin B-12) 1,000 mcg PO DAILY #30 cap 01/08/19 05/04/19 Rx folic acid 1 mg PO DAILY #30 tab 01/08/19 05/04/19 Rx pantoprazole 40 mg tablet,delayed 40 mg PO BID #60 tab 01/22/19 05/04/19 Rx release duloxetine 30 mg capsule,delayed 30 mg PO DAILY #30 cap 03/10/19 05/04/19 Rx release lisinopril 10 mg tablet 10 mg PO DAILY #30 tab 03/20/19 05/04/19 Rx benzonatate 100 mg capsule 100 mg PO TID PRN #30 cap 04/24/19 05/04/19 Rx tramadol 50 mg tablet 50 mg PO Q8H PRN #30 tab 05/12/19 05/12/19 Rx No Known Home Medications 05/31/19 05/31/19 History Patient History Medical History Alcohol intoxication (Resolved) January 2019-alcohol 231 Anxiety (Chronic) Arthritis (Chronic) Chronic kidney disease, stage III (moderate) (Chronic) Closed head injury (Resolved) Eczema Fatty liver (Chronic) GERD without esophagitis (Chronic) Hypertension (Chronic) Pre-diabetes (Chronic) Pulmonary embolism (Resolved) Vitamin D deficiency (Chronic) Surgical History H/O total hysterectomy History of knee replacement R Hx of appendectomy (Resolved) Family History Sister Depression Father Kidney stones Lung cancer Seizures Sister Lung cancer Mother No known health problems Sister Vaginal cancer Other Family history non-contributory Social History Preferred Language: Bangladeshi Communication Ability: Effective Visual Impairment: No Limitations Hearing Ability: Normal Electrician Chief Required: No Beliefs That Will Affect Care: None marital status: Current Living Situation: Family Current Living Situation Comment: lives with twin sister current occupational status: retired Feels Safe at Home: Yes Smoking Status: Former smoker Tobacco Type: cigarettes ; Age Started Using Tobacco: 33 ; Age Quit Using Tobacco: 64 ; Second Hand Exposure: No ; Hx Alcohol Use: Yes Alcohol type: hard liquor Alcohol Intake Frequency: Daily Alcohol Intake Frequency Comment: 3 captain and coke per day Hx Substance Use: No Childhood Exposure to Second-Hand Smoke: Yes Diet Comment: regular caffeine: Yes (coffee) Dental Care, Regularly: Yes Physical Activity Frequency: 3-4 Times per Week Physical Activity Frequency Comment: LIMITED BY PHYSICAL CONDITION Seatbelt Use: always Sunscreen Use: Yes Review of Systems Gastrointestinal: + diarrhea/loose stools; no nausea and no vomiting Physical Exam Physical Exam: awake Constitutional: no acute distress Gastrointestinal (Abdomen): Percussion/Palpation: + abdomen tender (mild ttp in lower abdomen) and abdomen soft Results & Data Vital Signs (Past 12 Hours) Vital Signs Temp Pulse Pulse Resp BP BP Pulse Ox 06/04/19 15:55 93 H 06/04/19 15:30 36.6 C 98 H 19 130/81 95 06/04/19 15:12 86 18 94 06/04/19 13:31 36.6 C 96 H 18 160/85 H 95 06/04/19 13:00 72 18 135/57 L 97 06/04/19 12:45 87 16 140/68 93 06/04/19 12:31 88 16 113/53 L 96 06/04/19 11:06 37.2 C 88 18 153/82 H 94 06/04/19 07:54 37.0 C 95 H 18 129/89 92 06/04/19 07:12 104 H 18 94 06/04/19 07:08 36.7 C 107 H 22 146/[address] WITH CONTRAST; CT ABDOMEN AND PELVIS WITH IV CONTRAST ONLY HISTORY: Acute chest and abdominal trauma status post fall. Acute left-sided rib pain TRAUMA TECHNIQUE: Multiaxial CT images of the chest, abdomen and pelvis were performed following the IV administration of 93 cc of Optiray 320. A dose lowering technique was utilized adhering to the principles of ALARA. COMPARISON: CT abdomen and pelvis 05/11/2015 FINDINGS: CHEST CT: Unremarkable thyroid. Heart is normal in size without pericardial effusion. Minimal coronary arterial calcifications are noted. There is no thoracic aortic aneurysm or dissection. Mild mixed plaque of the thoracic aorta with patency of the imaged great vessels. The opacified pulmonary arterial tree is unremarkable. No pneumothorax or pleural effusion. Scattered calcified granulomata incidentally noted within the lungs. Minimal bibasilar atelectasis. There are no suspicious pulmonary nodules or masses. Mild biapical pleural-parenchymal scarring with pleural calcifications. Central airways are patent. Soft tissues are within normal limits. Degenerative changes of the shoulders and spine. Bones appear to be intact. No acute fracture identified. ABDOMEN/PELVIS CT: No pneumatosis or pneumoperitoneum. The liver, spleen, gallbladder and adrenal glands are unremarkable. No biliary ductal dilation. Moderate to extensive generalized pancreatic atrophy. 1.2 cm cystic structure of the superior pole left kidney demonstrates apparent thin central septations. The lesion appears unchanged in size from 2016 and may reflect a complex cyst however is technically indeterminate on this single phase exam. There is mild bilateral renal cortical thinning. There is no renal calculi or hydronephrosis. Urinary bladder is unremarkable. Hysterectomy. Postoperative changes of the left inguinal tissues. No adnexal mass lesion. Moderate mixed plaque of the abdominal aorta without aneurysm. There is no adenopathy. Mild wall thickening of the distal esophagus with small hiatal hernia. Soft tissue density within the region of the ampulla may be secondary to redundant bowel. There is an irregular enhancing soft tissue mass of the distal sigmoid with apparent extension through the serosa, 5.6 x 5.3 x 4.3 cm, image 374 series 11. Pericolonic stranding is noted with a few adjacent pericolonic nodules suspicious for lymphatic metastasis. This results in irregular narrowing of the lumen. No proximal obstruction. Moderate fecal retention. The appendix appears surgically absent. Diastases recti. Demineralized appearance of the bones. Subcutaneous edema with small hematoma of the subcutaneous tissues superolateral to the right hip measuring up to 1.4 cm. 1.3 cm sclerotic focus of the right iliac wing is unchanged suggestive of a probable bone island. No acute fracture identified. IMPRESSION: 1. No acute posttraumatic abnormality identified within the chest, abdomen or pelvis. 2. No acute fracture or evidence of acute solid organ injury. 3. Irregular enhancing soft tissue mass of the distal sigmoid colon with extra serosal extension measures up to 5.6 cm. Mildly prominent adjacent pericolonic nodules are suggestive of local lymphatic metastasis. There is no evidence of associated proximal obstruction. Correlation with follow-up GI consultation and colonoscopy is needed. 4. No evidence of distant metastatic disease. 5. Small subcutaneous hematoma superior lateral to the right hip. 6. Additional findings as above. ACT 112: Negative or not required by law. Electronically signed by: Elias Lockhart M.D. 05/04/2019 8:37 AM Patient Name: Jumana Duffy Procedure Date: 06/04/2019 11:59 AM Date of : 1940 Admit Type: Inpatient Age: 78 Gender: Female Attending MD: Mike Patel MD Procedure: Colonoscopy Providers: Mike Patel MD Referring MD: Yessenia Cameron Indications: Abnormal CT of the GI tract Medicines: Monitored Anesthesia Care Complications: No immediate complications. Estimated blood loss: None. Estimated Blood Loss: Estimated blood loss: none. Procedure: Pre-Anesthesia Assessment: - Pre-Anesthesia Assessment: - Prior to the procedure, a History and Physical was performed, and patient medications, allergies and sensitivities were reviewed. The patient's tolerance of previous anesthesia was reviewed. Please see Edvert for complete details. - The risks and benefits of the procedure and the sedation options and risks were discussed with the patient. All questions were answered and informed consent was obtained. - Patient identification and proposed procedure were verified prior to the procedure by the physician and the nurse. The procedure was verified in the pre-procedure area in the procedure room. After obtaining informed consent, the endoscope was passed carefully and meticuously under direct vision and only advanced when the lumen was clearly identified, C02 insuflation was utilized throughout the entirity of the procedure. Throughout the procedure, the patient's blood pressure, pulse, and oxygen saturations were monitored continuously. After I obtained informed consent, the scope was passed under direct vision. Throughout the procedure, the patient's blood pressure, pulse, and oxygen saturations were monitored continuously. The scope was introduced through the anus and advanced to the cecum, identified by appendiceal orifice and ileocecal valve. The colonoscopy was performed without difficulty. The patient tolerated the procedure well. The quality of the bowel preparation was good. Findings: A 7 mm polyp was found in the cecum. The polyp was sessile. The polyp was removed with a saline injection-lift technique using a cold snare. Resection and retrieval were complete. To prevent bleeding post-intervention, one hemostatic clip was successfully placed. There was no bleeding during, or at the end, of the procedure. A polypoid and ulcerated partially obstructing large mass was found in the proximal rectum, in the mid rectum and in the distal sigmoid colon. The mass was circumferential. The mass measured eight cm in length. Oozing was present. This was biopsied with a cold forceps for histology. Area was tattooed with an injection of Spot (carbon black) on both the proximal and distal margins of the tumor. The tumor involves the middle and most proximal rectal valves, but extends back proximally several cm. At maximum distention, the tumor distally is approximaly 6-7 cm from verge. Impression: - One 7 mm polyp in the cecum, removed using injection-lift and a cold snare. Resected and retrieved. Clip was placed. 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 Biopsied. Tattooed. Recommendation: - Return patient to [facility] for [facility] care. - Surgical consultation - Oncology and Radiation oncology consultations Mike Patel MD PG Care Time/CCT Total # of Minutes Spent Total Time Spent with Patient: Total time spent is greater than 50% in coordination of care (as documented) at patient's floor/unit and/or counseling patient: Coding Level of Care Code 79454 Initial Inpt Care Lvl 2 Diagnoses Mass of colon K63.89
--- NOTE | 2019-06-04 21:47 | Hospitalist Progress Note ---
Date of Service June 04, 2019 Assessment & Plan (1) Mass of colon: s/p colonoscopy today. very large rectal mass most certainly is colorectal cancer. [facility] consulted Dr Dean from general surgery. Will ask heme/onc to see in consult in am. resume diet, advance as tolerated. recent CTA chest w/o mets but 04/2019 CT abd/pelvis concerning for lymph node involvement. (2) COPD (chronic obstructive pulmonary disease): with mild exacerbation. treated currently with bronchodilators only. deferring on steroids for now. if symptoms persist then consider additional inhalers and/or prednisone. (3) H/O ETOH abuse: noted. no evidence of etoh withdrawal. consider MVI/folate/thiamine. (4) HTN (hypertension): cont beta kenai consider increase in dose given high readings at times (5) Atrial arrhythmia: PAT seen on monitor; no symptoms; continue tele (6) Chronic kidney disease, stage III (moderate): baseline CrCl in the 50s BMP today is stable (7) Pre-diabetes: glucose levels have been normal/acceptable (8) Rib fractures: left - #'s 4th-6th no symptoms from such monitor due to recent coughing spells from COPD?? (9) DVT prophylaxis: holding heparin in light of colonoscopy with biopsy today cont PT/OT services update family tomorrow Subjective saw the patient post-colonoscopy today. she is aware of c-scope findings and likely colorectal cancer. she is anxious about the diagnosis and tells me her family is very scared as well. denies any abdominal pain. tele overnight - NSR; 1 episode of PAT. Review of Systems Constitutional: no fever and no chills Respiratory: + cough; no dyspnea Cardiovascular: no chest pain Physical Exam Constitutional: no acute distress and no altered mental status ENMT: external ear and nose normal, oropharynx normal Respiratory: no respiratory distress Auscultation: + wheezes (occasional, mild ); no crackles Cardiovascular: Rate/Rhythm: regular rhythm and + tachycardic Heart Sounds: normal S1 and normal S2; no murmur Vessels: posterior tibial pulses present and dorsalis pedis pulses present; no JVD Extremities: no edema Gastrointestinal (Abdomen): normal bowel sounds, soft, nontender, no hepatosplenomegaly Psychiatric: Orientation: alert and oriented x 3 Affect: + anxious affect Results & Data Vital Signs (Past 12 Hours) Vital Signs Temp Pulse Pulse Pulse Resp BP BP 06/04/19 20:00 36.3 C L 105 H 22 155/75 H 06/04/19 15:55 93 H 06/04/19 15:30 36.6 C 98 H 19 130/81 06/04/19 15:12 86 18 06/04/19 13:31 36.6 C 96 H 18 160/85 H 06/04/19 13:00 72 18 135/57 L 06/04/19 12:45 87 16 140/68 06/04/19 12:31 88 16 113/53 L 06/04/19 11:06 37.2 C 88 18 153/82 H Pulse Ox 06/04/19 20:00 93 06/04/19 15:55 06/04/19 15:30 95 06/04/19 15:12 94 06/04/19 13:31 95 06/04/19 13:00 97 06/04/19 12:45 93 06/04/19 12:31 96 06/04/19 11:06 94 Laboratory Results Laboratory Results - last 24 hr 06/04/19 06/04/19 06/04/19 06:09 06:09 20:40 WBC 8.01 RBC 4.00 L Hgb 11.0 L Hct 34.4 L MCV 86.0 MCH 27.5 MCHC 32.0 RDW Std Deviation 50.5 H RDW Coeff of Maico 16.0 H Plt Count 350 MPV 9.6 Immature Gran % (Auto) 0.1 Neut % (Auto) 60.8 Lymph % (Auto) 25.5 [place] % (Auto) 11.5 Eos % (Auto) 1.9 Baso % (Auto) 0.2 Immature Gran # (Auto) 0.01 Neut # (Auto) 4.87 Lymph # (Auto) 2.04 [place] # (Auto) 0.92 H Eos # (Auto) 0.15 Baso # (Auto) 0.02 Sodium 138 Potassium 4.0 Chloride 109 H Carbon Dioxide 23 Anion Gap 6.0 BUN 10 Creatinine 0.70 Est Cr Clr Drug Dosing 69.2 Est GFR ( Amer) 94.8 Est GFR (Non-Af Amer) 81.8 BUN/Creatinine Ratio 14.9 Glucose 83 POC Glucose 89 Calcium 8.7 Total Bilirubin 0.6 AST 15 ALT 16 Alkaline Phosphatase 56 Total Protein 5.5 L Albumin 2.7 L Globulin 2.8 Albumin/Globulin Ratio 1.0 PG Care Time/CCT Total # of Minutes Spent Total Time Spent with Patient: Total time spent is greater than 50% in coordination of care (as documented) at patient's floor/unit and/or counseling patient: Coding Level of Care Code 08082 Subseq Hosp Care Lvl 2 Diagnoses Mass of colon K63.89 COPD (chronic obstructive pulmonary disease) J44.1 COPD type: COPD with acute exacerbation H/O ETOH abuse F10.11 HTN (hypertension) I10 Hypertension type: essential hypertension Atrial arrhythmia I49.8 Chronic kidney disease, stage III (moderate) N18.3 Pre-diabetes R73.03 Rib fractures S22.42XD Encounter type: subsequent encounter Rib fracture type: multiple ribs Fracture type: closed Laterality: left Fracture healing: with routine healing DVT prophylaxis Z29.9 (1) COPD (chronic obstructive pulmonary disease) COPD type: COPD with acute exacerbation Qualified Code(s): J44.1 - Chronic obstructive pulmonary disease with (acute) exacerbation (2) HTN (hypertension) Hypertension type: essential hypertension Qualified Code(s): I10 - Essential (primary) hypertension (3) Rib fractures Encounter type: subsequent encounter Rib fracture type: multiple ribs Fracture type: closed Laterality: left Fracture healing: with routine healing Qualified Code(s): S22.42XD - Multiple fractures of ribs, left side, subsequent encounter for fracture with routine healing
[2019-06-05] MEDS: IPRATROPIUM BROMIDE NEB SOLN 0.02% 2.5 ML VIAL NEB SCH ×4 (00:18→23:23)
--- NOTE | 2019-06-05 07:53 | Anesthesiology Progress Note ---
Date of Service June 05, 2019 Anesthesia Post Procedure Vital Signs Vital Signs: Temp Pulse Pulse Pulse Pulse Resp BP 06/05/19 07:09 106 H 16 06/05/19 04:12 36.8 C 99 H 19 123/80 06/05/19 00:18 85 18 06/05/19 00:00 88 06/04/19 23:46 36.8 C 96 H 18 142/76 H 06/04/19 20:00 36.3 C L 105 H 22 06/04/19 15:55 93 H 06/04/19 15:30 36.6 C 98 H 19 130/81 06/04/19 15:12 86 18 06/04/19 13:31 36.6 C 96 H 18 160/85 H 06/04/19 13:00 72 18 06/04/19 12:45 87 16 06/04/19 12:31 88 16 06/04/19 11:06 37.2 C 88 18 06/04/19 07:54 37.0 C 95 H 18 BP Pulse Ox 06/05/19 07:09 93 06/05/19 04:12 93 06/05/19 00:18 93 06/05/19 00:00 06/04/19 23:46 94 06/04/19 20:00 155/75 H 93 06/04/19 15:55 06/04/19 15:30 95 06/04/19 15:12 94 06/04/19 13:31 95 06/04/19 13:00 135/57 L 97 06/04/19 12:45 140/68 93 06/04/19 12:31 113/53 L 96 06/04/19 11:06 153/82 H 94 06/04/19 07:54 129/89 92 Notes Mental Status: alert / awake / arousable and participated in evaluation Patient Amnestic to Procedure: Yes Nausea / Vomiting: adequately controlled Pain: adequately controlled Airway Patency, RR, SpO2: stable & adequate BP & HR: stable & adequate Hydration State: stable & adequate Anesthetic Complications: no major complications apparent and Pt Satisfied with anesthetic care
[2019-06-05] MEDS: DESONIDE CR 15 GM TUBE EXT SCH ×2 (07:55→19:59)
[2019-06-05] MEDS: METOPROLOL TARTRATE 25 MG TAB PO SCH ×3 (07:55→20:00)
[2019-06-05] MEDS: DULOXETINE HCL 30 MG CAP PO SCH (07:55)
[2019-06-05] MEDS: HEPARIN SOD 5,000 UNIT/0.5 ML VIAL SQ SCH ×2 (07:56→20:01)
[2019-06-05] MEDS: THIAMINE HCL 100 MG TAB PO SCH (09:10)
[2019-06-05] MEDS: CEROVITE ADV FORMULA TAB PO SCH (09:10)
[2019-06-05] MEDS: FOLIC ACID 1 MG TAB PO SCH (09:10)
--- NOTE | 2019-06-05 10:40 | Radiation OncologyConsultation ---
Date of Consultation June 05, 2019 Assessment & Plan (1) Mass of colon: Assessment: Patient is an 78-year-old female who has a mid rectal mass measuring over 5 cm. At the time of colonoscopy it was circumferential and oozing and certainly consistent with a rectal cancer. Unfortunately initial biopsy revealed necrotic tissue only. A rebiopsy will be necessary. Treatment Options: Once pathologic confirmation is been obtained the patient will be treated with preoperative chemoradiation. This will consist of oral Xeloda along with daily radiation utilizing IMRT and IGR T. Once the patient has completed her preoperative therapy she will be evaluated for surgical resection of her rectal mass as recommended by surgery. Recommendations: I will discuss with Dr. Patel to recommend repeat endoscopy and multiple/deeper biopsies for pathologic diagnosis. Plan: 1. Re-biopsy of rectal mass. 2. I will patient staging PET CT scan if approved by insurance. 3. CT simulation to be scheduled once histologic verification has been confirmed. 4. Approval of treatment plan. 5. Coordination of the initiation of preoperative radiation with the initiation of oral Xeloda. 6. Probable low anterior resection following the completion of preoperative chemoradiation. 7. Continue follow-up with Dr. Restrepo. 8. Continue follow-up with radiation oncology. 9. Continue follow-up with surgery. 10. Continue follow-up with PCP. Rationale/Explanation of Treatment: The patient has what appears to be a rectal mass both clinically, endoscopically and radiologically. Initial biopsy revealed necrotic tissue only. Rebiopsy will hopefully provide pathologic verification. Standard treatment for rectal cancer according to NCCN guidelines consist of preoperative chemoradiation followed by surgical excision. Given the location of the lesion the patient hopefully will be a candidate for a low anterior resection. There is no evidence of dissemination on CT scan. We will obtain a PET CT scan if approved by insurance. We will proceed with CT simulation and treatment planning once we have pathologic verification of rectal cancer. I met with the patient and reviewed with her the potential risks and benefits of a course of radiation for her rectal cancer. I did explain the indications, alternatives, benefits, risks and side effects of external beam radiation therapy. I did explain the most common side effects including, but not limited to, skin erythema, skin breakdown, hyperpigmentation, telangiectasia, wound complications, perianal fistula development, fistula formation, bowel obstruction, bowel perforation, vaginal dryness, vaginal stenosis, dyspareunia, dysuria, increased urinary frequency, urgency, diarrhea, constipation, melena, hematochezia, hematuria, radiation cystitis, radiation proctitis, fatigue, decreased blood counts, wound complications from surgery, rectal incontinence, secondary malignancy development. I did explain the procedures and daily process of radiation therapy. The patient understands and was willing to consent to treatment. A consent form was therefore reviewed with the patient. The risks were reviewed and initialed and the consent form was reviewed signed and witnessed. This chart was completed in part utilizing [employer] Voice Recognition software. Grammatical errors, random word insertions, pronoun errors and incomplete sentences are occasional consequence of this system due to software limitations, ambient noise and hardware issues. Any formal questions or concerns about the content, text or information contained within the body of this dictation should be directly addressed to the provider for clarification. Marco Arriaga MD Department of Radiation Oncology [facility] Present on Admission?: Yes History of Present Illness Reason for Consultation: Rectal Cancer Requesting Physician: Dr. Salmeron Attending Physician: Jeffrey Salmeron History of Present Illness Ms. Duffy is an 78-year-old female who was recently admitted in April and found to have a rectal mass. 05/04/2019. Patient presents to the emergency department following a fall with head and rib pain and laceration. Patient undergoes CT of the chest abdomen and pelvis. This revealed an irregular enhancing soft tissue mass of the distal sigmoid with apparent extension through the serosa. The lesion measured 5.6 x 5.3 x 4.3 cm. There was pericolonic stranding with a few adjacent pericolonic nodule suspicious for lymphatic metastasis. There is resultant irregular narrowing of the lumen with no obstruction and moderate fecal retention. CT of the chest was unremarkable. No evidence of liver metastasis. 05/12/2019. Patient seen by her PCP Dr. Cameron. She noted patient healing from her fall with sutures removed. 05/31/2019. Patient presents to the emergency department with complaint of w orsening respiratory issues that have been increasing over the past week with productive cough trouble breathing and chills. Patient found to have atrial arrhythmias and was admitted for further evaluation and work-up. 06/03/2019. GI consultation called and colonoscopy scheduled. The patient denied nausea or vomiting or constipation or abdominal pain. She denied rectal bleeding narrow stools. She does note decreasing appetite but stable weight. Patient agreed to colonoscopy. 06/04/2019. Dr. iMke Patel performed a colonoscopy. A 7 mm polyp was found in the cecum that was sessile and removed. A polypoid and ulcerated partially obstructing large mass was found in the proximal rectum, in the mid rectum and in the distal sigmoid colon. The mass was circumferential measuring 8 cm in length. Oozing was present. The lesion was biopsied. The tumor involve the middle and most proximal rectal valves but extended back proximally several centimeters. At maximal distention to tumor distally is approximately 6 to 7 cm from the anal verge. Pathology revealed abundant necrotic debris and neutrophils with no viable tissue identified. The cecal polyp confirmed a sessile serrated adenoma and was negative for high-grade dysplasia. Recommendation is for a deeper re-biopsy of the rectal mass. Case #: [id number]. 06/04/2019. Patient seen by surgery, Radha Mendoza PA-C on behalf of Dr. Dean (oncologic surgery). Recommendation is for preoperative chemoradiation followed by surgery. Referral request to medical oncology and radiation oncology. 06/05/2019. Patient seen by Dr. Berny Restrepo (medical oncology) for evaluation and discussion of the role of combined chemoradiation is preoperative treatment for her presumed rectal cancer. 06/05/2019. Patient seen by radiation oncology for evaluation and discussion of the role of preoperative chemoradiation as treatment for presumed rectal cancer. This chart was completed in part utilizing [employer] Voice Recognition sof [employer]. Grammatical errors, random word insertions, pronoun errors and incomplete sentences are occasional consequence of this system due to software limitations, ambient noise and hardware issues. Any formal questions or concerns about the content, text or information contained within the body of this dictation should be directly addressed to the provider for clarification. Marco Arriaga MD Department of Radiation Oncology [facility] Allergies Allergy/AdvReac Type Severity Reaction Status Date / Time codeine Allergy Intermediate RASH Verified 06/02/19 08:03 amoxicillin Allergy Unknown UNKNOWN Verified 06/02/19 08:03 azithromycin Allergy Unknown Unknown Verified 06/02/19 08:03 neomycin Allergy Unknown ? RASH Verified 06/02/19 08:03 Sulfa (Sulfonamide Allergy Unknown BODY RASH, Verified 06/02/19 08:03 Antibiotics) YEAST INFECTIONS simvastatin AdvReac Unknown gi Verified 06/02/19 08:03 bleed/distress Home Medications Home Medications Medication Instructions Recorded Confirmed Type atenolol 100 mg tablet 100 mg PO DAILY #90 tab 12/20/18 05/04/19 Rx triamcinolone acetonide 1 appln TOP TID PRN 01/07/19 05/04/19 History cyanocobalamin (vitamin B-12) 1,000 mcg PO DAILY #30 cap 01/08/19 05/04/19 Rx folic acid 1 mg PO DAILY #30 tab 01/08/19 05/04/19 Rx pantoprazole 40 mg tablet,delayed 40 mg PO BID #60 tab 01/22/19 05/04/19 Rx release duloxetine 30 mg capsule,delayed 30 mg PO DAILY #30 cap 03/10/19 05/04/19 Rx release lisinopril 10 mg tablet 10 mg PO DAILY #30 tab 03/20/19 05/04/19 Rx benzonatate 100 mg capsule 100 mg PO TID PRN #30 cap 04/24/19 05/04/19 Rx tramadol 50 mg tablet 50 mg PO Q8H PRN #30 tab 05/12/19 05/12/19 Rx No Known Home Medications 05/31/19 05/31/19 History Patient History Medical History Alcohol intoxication (Resolved) January 2019-alcohol 231 Anxiety (Chronic) Arthritis (Chronic) Chronic kidney disease, stage III (moderate) (Chronic) Closed head injury (Resolved) Eczema Fatty liver (Chronic) GERD without esophagitis (Chronic) Hypertension (Chronic) Pre-diabetes (Chronic) Pulmonary embolism (Resolved) Vitamin D deficiency (Chronic) Surgical History H/O total hysterectomy History of knee replacement R Hx of appendectomy (Resolved) Family History Sister Depression Father Kidney stones Lung cancer Seizures Sister Lung cancer Mother No known health problems Sister Vaginal cancer Other Family history non-contributory Social History Preferred Language: Japanese Communication Ability: Effective Visual Impairment: No Limitations Hearing Ability: Normal [employer]oples[employer] Analyst Required: No Beliefs That Will Affect Care: None marital status: Current Living Situation: Family Current Living Situation Comment: lives with twin sister current occupational status: retired Feels Safe at Home: Yes Smoking Status: Former smoker Tobacco Type: cigarettes ; Age Started Using Tobacco: 33 ; Age Quit Using Tobacco: 64 ; Second Hand Exposure: No ; Hx Alcohol Use: Yes Alcohol type: hard liquor Alcohol Intake Frequency: Daily Alcohol Intake Frequency Comment: 3 captain and coke per day Hx Substance Use: No Childhood Exposure to Second-Hand Smoke: Yes Diet Comment: regular caffeine: Yes (coffee) Dental Care, Regularly: Yes Physical Activity Frequency: 3-4 Times per Week Physical Activity Frequency Comment: LIMITED BY PHYSICAL CONDITION Seatbelt Use: always Sunscreen Use: Yes Physical Exam Constitutional: WD/WN, vitals as above Eyes: PERRL, conjunctivae normal, anicteric sclerae ENMT: external ear and nose normal, oropharynx normal Neck: trachea midline, no thyromegaly Respiratory: + respiratory distress and + labored breathing Auscultation: + crackles and + wheezes Cardiovascular: RRR, no murmur, no edema Chest (Breasts): Breast: normal inspection of breasts and normal inspection of axillae Gastrointestinal (Abdomen): normal bowel sounds, soft, nontender, no hepatosplenomegaly Musculoskeletal: no cyanosis or clubbing, extremities motor strength 5/5 Skin: no rashes, warm and dry Neurologic: normal touch/pain/proprioception and CN's II-XI intact bilaterally Psychiatric: A+Ox3, euthymic affect Lymphatic: no cervical or axillary lymphadenopathy Results Laboratory Results: were reviewed and pertinent findings noted in HPI Pathology Results: were review and pertinent findings noted below and were reviewed and pertinent findings noted in HPI FINAL DIAGNOSIS A. RECTUM, MASS, BIOPSY: - ABUNDANT NECROTIC DEBRIS AND NEUTROPHILS - NO VIABLE TISSUE IS IDENTIFIED B. COLON, CECAL POLYP, POLYPECTOMY: - SESSILE SERRATED ADENOMA - NEGATIVE FOR HIGH GRADE DYSPLASIA COMMENT: The specimen in part A shows no findings to explain a mass lesion. Deeper re-biopsy is recommended for evaluation. Imaging Studies: were review and pertinent findings noted below and were revie wed and pertinent findings noted in HPI CHEST CT WITH CONTRAST; CT ABDOMEN AND PELVIS WITH IV CONTRAST ONLY HISTORY: Acute chest and abdominal trauma status post fall. Acute left-sided rib pain TRAUMA TECHNIQUE: Multiaxial CT images of the chest, abdomen and pelvis were performed following the IV administration of 93 cc of Optiray 320. A dose lowering technique was utilized adhering to the principles of ALARA. COMPARISON: CT abdomen and pelvis 05/11/2015 FINDINGS: CHEST CT: Unremarkable thyroid. Heart is normal in size without pericardial effusion. Minimal coronary arterial calcifications are noted. There is no thoracic aortic aneurysm or dissection. Mild mixed plaque of the thoracic aorta with patency of the imaged great vessels. The opacified pulmonary arterial tree is unremarkable. No pneumothorax or pleural effusion. Scattered calcified granulomata incidentally noted within the lungs. Minimal bibasilar atelectasis. There are no suspicious pulmonary nodules or masses. Mild biapical pleural-parenchymal scarring with pleural calcifications. Central airways are patent. Soft tissues are within normal limits. Degenerative changes of the shoulders and spine. Bones appear to be intact. No acute fracture identified. ABDOMEN/PELVIS CT: No pneumatosis or pneumoperitoneum. The liver, spleen, gallbladder and adrenal glands are unremarkable. No biliary ductal dilation. Moderate to extensive generalized pancreatic atrophy. 1.2 cm cystic structure of the superior pole left kidney demonstrates apparent thin central septations. The lesion appears unchanged in size from 2016 and may reflect a complex cyst however is technically indeterminate on this single phase exam. There is mild bilateral renal cortical thinning. There is no renal calculi or hydronephrosis. Urinary bladder is unremarkable. Hysterectomy. Postoperative changes of the left inguinal tissues. No adnexal mass lesion. Moderate mixed plaque of the abdominal aorta without aneurysm. There is no adenopathy. Mild wall thickening of the distal esophagus with small hiatal hernia. Soft tissue density within the region of the ampulla may be secondary to redundant bowel. There is an irregular enhancing soft tissue mass of the distal sigmoid with apparent extension through the serosa, 5.6 x 5.3 x 4.3 cm, image 374 series 11. Pericolonic stranding is noted with a few adjacent pericolonic nodules susp icious for lymphatic metastasis. This results in irregular narrowing of the lumen. No proximal obstruction. Moderate fecal retention. The appendix appears surgically absent. Diastases recti. Demineralized appearance of the bones. Subcutaneous edema with small hematoma of the subcutaneous tissues superolateral to the right hip measuring up to 1.4 cm. 1.3 cm sclerotic focus of the right iliac wing is unchanged suggestive of a probable bone island. No acute fracture identified. IMPRESSION: 1. No acute posttraumatic abnormality identified within the chest, abdomen or pelvis. 2. No acute fracture or evidence of acute solid organ injury. 3. Irregular enhancing soft tissue mass of the distal sigmoid colon with extra serosal extension measures up to 5.6 cm. Mildly prominent adjacent pericolonic nodules are suggestive of local lymphatic metastasis. There is no evidence of associated proximal obstruction. Correlation with follow-up GI consultation and colonoscopy is needed. 4. No evidence of distant metastatic disease. 5. Small subcutaneous hematoma superior lateral to the right hip. 6. Additional findings as above. Patient Name: Jumana Duffy Procedure Date: 06/04/2019 11:59 AM Date of : 1940 Admit Type: Inpatient Age: 78 Gender: Female Attending MD: Mike Patel MD Procedure: Colonoscopy Providers: Mike Patel MD Referring MD: Yessenia Cameron Indications: Abnormal CT of the GI tract Medicines: Monitored Anesthesia Care Complications: No immediate complications. Estimated blood loss: None. Estimated Blood Loss: Estimated blood loss: none. Procedure: Pre-Anesthesia Assessment: - Pre-Anesthesia Assessment: - Prior to the procedure, a History and Physical was performed, and patient medications, allergies and sensitivities were reviewed. The patient's tolerance of previous anesthesia was reviewed. Please see [facility] for complete details. - The risks and benefits of the procedure and the sedation options and risks were discussed with the patient. All questions were answered and informed consent was obtained. - Patient identification and proposed procedure were verified prior to the procedure by the physician and the nurse. The procedure was verified in the pre-procedure area in the procedure room. After obtaining informed consent, the endoscope was passed carefully and meticuously under direct vision and only advanced when the lumen was clearly identified, C02 insuflation was utilized throughout the entirity of the procedure. Throughout the procedure, the patient's blood pressure, pulse, and oxygen saturations were monitored continuously. After I obtained informed consent, the scope was passed under direct vision. Throughout the procedure, the patient's blood pressure, pulse, and oxygen saturations were monitored continuously. The scope was introduced through the anus and advanced to the cecum, identified by appendiceal orifice and ileocecal valve. The colonoscopy was performed without difficulty. The patient tolerated the procedure well. The quality of the bowel preparation was good. Findings: A 7 mm polyp was found in the cecum. The polyp was sessile. The polyp was removed with a saline injection-lift technique using a cold snare. Resection and retrieval were complete. To prevent bleeding post-intervention, one hemostatic clip was successfully placed. There was no bleeding during, or at the end, of the procedure. A polypoid and ulcerated partially obstructing large mass was found in the proximal rectum, in the mid rectum and in the distal sigmoid colon. The mass was circumferential. The mass measured eight cm in length. Oozing was present. This was biopsied with a cold forceps for histology. Area was tattooed with an injection of Spot (carbon black) on both the proximal and distal margins of the tumor. The tumor involves the middle and most proximal rectal valves, but extends back proximally several cm. At maximum distention, the tumor distally is approximaly 6-7 cm from verge. Impression: - One 7 mm polyp in the cecum, removed using injection-lift and a cold snare. Resected and retrieved. Clip was placed. 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 Biopsied. Tattooed. Recommendation: - [facility]. - Surgical consultation - Oncology and Radiation oncology consultations Mike Patel MD Time Spent Attending This documentation has been prepared in full by Dr. Arriaga who personally performed the services described and have reviewed the documentation to ensure its accuracy. I spent 30 minutes minutes with direct face to face interaction with the patient which included obtaining clinical information, performing a physical exam, recommending a plan of action and answering questions discussion with her physicians and preparation of this document. JAIME
--- NOTE | 2019-06-05 11:03 | Consultation Report ---
DATE OF CONSULTATION: 06/05/2019 REASON FOR CONSULTATION: Adenocarcinoma of the rectum. HISTORY OF PRESENT ILLNESS: Jumana Duffy is an 78-year-old female patient who was admitted to [facility] on 05/31/2019 with complaint of worsening respiratory issues. On admission, she had admitted to struggling with intermittent productive cough of yellowish santiago sputum and had trouble breathing and also complained of low-grade fever and chills. The patient has been bedbound for the most part and reported that the shortness of breath had gotten so severe that she called 911. Thus, the admitting diagnoses was acute respiratory failure, generalized weakness and dehydration. Interestingly, apparently this patient was evaluated in the Emergency Room back on 05/04/[address] scan of the abdomen and pelvis at that time identified an irregular enhancing soft tissue mass in the distal sigmoid with apparent extension through the serosa measuring 5.6 x 5.3 x 4.3 cm. There were adjacent lymph nodes also concerning. Unclear whether this was communicated with appropriate followup and workup was undertaken. At bedside, Jumana appears to be relatively clueless regarding this mass. In fact, she had much difficulty explaining why she was actually admitted to the hospital, which I found somewhat troubling. Nonetheless, appropriately gastroenterology was consulted. Colonoscopy was performed on 06/04/2019 revealing a polypoid ulcerated partially obstructing large mass was found in the proximal rectum, mid rectum extending into the distal sigmoid colon, mass was circumferential, measured 8 cm in length, oozing a small amount of blood. Biopsies were carried out with results pending. 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 PAST MEDICAL HISTORY: The patient has no established medical problems. MEDICATIONS: She has no prescription medications and no allergies. FAMILY HISTORY: Noncontributory and again, the patient's mental status is not best in providing accurate information. SOCIAL HISTORY: She currently lives with her twin sister. No cigarette or tobacco history. She is known to consume alcohol, amounts are unknown. REVIEW OF SYSTEMS: Again, unobtainable because of the patient's mental status. She could not even tell me why she was admitted. PHYSICAL EXAMINATION: GENERAL: Very pleasant 78-year-old female, awake, alert and appropriate, in no acute distress. VITAL SIGNS: Temperature 36.7, pulse 106, respiratory rate 20, blood pressure 132/89. SKIN: Warm, dry, noncyanotic without petechia, rash or ecchymosis. HEENT: Atraumatic, normocephalic. Eyes: PERRLA, EOMI. Sclerae nonicteric. No conjunctival injection. Nares are patent without rhinorrhea or discharge. Throat is clear. Tongue is midline. Mucous membranes are moist. NECK: Supple without JVD or thyromegaly. LYMPH: No cervical, supraclavicular palpable nodes. HEART: Regular rate and rhythm. No clicks, rubs, murmurs or gallops. LUNGS: Clear to auscultation bilaterally. ABDOMEN: Soft, nontender, nondistended, without palpable hepatosplenomegaly. Bowel sounds are active. EXTREMITIES: Pulses and musculoskeletal strength are equal in all 4 quadrants. No clubbing, cyanosis or edema. NEUROLOGICAL: She is awake, alert and oriented. No gross motor or sensory deficits are noted. LABORATORY DATA: WBC count 8000, hemoglobin 11, platelet count 350,000. Sodium 138, potassium 4.0, chloride 109, carbon dioxide 23, creatinine 0.7, BUN 10, albumin 2.7. RADIOGRAPHIC DATA: CTA of the chest negative for pulmonary embolism, subacute healing minimally displaced fracture of the anterior left 4th rib through 6th ribs, cardiomegaly, small hiatal hernia. IMPRESSION: 1. Acute respiratory failure attributable to exacerbation of chronic obstructive pulmonary disease. 2. Probable adenocarcinoma of the rectum. Awaiting confirmation. 3. ETOH abuse. 4. Hypertension. 5. Atrial arrhythmia. 6. Chronic kidney disease. 7. Status post fall/rib fractures. PLAN: It was my pleasure to meet with Jumana at bedside. I was somewhat surprised that she really did not have insight on why she was admitted and previous events that led to the current diagnosis. Apparently, Jumana had suffered a fall back in late April and unfortunately sustained rib fractures. Radiographic data from that visit clearly indicated she had a relatively large rectal mass. I suspect this was communicated to Jumana and she failed to follow up. Nonetheless, she had admitted for exacerbation of COPD and astutely via medical team reviewed the previous CT scan, identifying the rectal mass and working up further. Jumana most likely suffers from an adenocarcinoma of the rectum. Standard of care is chemoradiation followed by low anterior resection and most likely in her case, will also recommend adjuvant chemotherapy. She admittedly is a bit overwhelmed. I will plan to convene with her once she is discharged. I would ask the medical team to stabilize her medically before discharge. Perhaps radiation oncology could be introduced to Jumana as well. We will obtain a baseline CEA level. Would ask pathology to young-LOERNA the biopsy specimen. Thank you very much for allowing me to participate in her care. I will make arrangements for outpatient followup. SHAYNA
--- NOTE | 2019-06-05 21:15 | Hospitalist Progress Note ---
Date of Service June 05, 2019 Assessment & Plan (1) Mass of colon: s/p colonoscopy 06/04/2019. very large rectal mass most certainly is colorectal cancer. unfortunately the biopsies showed necrotic cells only and she will need repeat flex sig tomorrow for repeat biopsy for definitive dx. this will take place tomorrow AM. appreciate [facility] GI assistance. NPO after MN tonight for flex sig tomorrow am. diet until MN tonight. recent CTA chest w/o mets but 04/2019 CT abd/pelvis concerning for lymph node involvement. appreciate consultations by heme/onc, rad onc, and gen surg. he will need simultaneous chemo with radiation - likely to be initiated as outpatient. following several weeks of adjuvant chemo/radiation then likely surgical resection? repeat labs in am. (2) COPD (chronic obstructive pulmonary disease): with mild exacerbation. treated currently with bronchodilators only. deferring on steroids as lungs are clear and minimal symptoms. (3) H/O ETOH abuse: noted. no evidence of etoh withdrawal. (4) HTN (hypertension): cont beta kenia high BPs - due to anxiety? consider titration of BB (5) Atrial arrhythmia: PAT seen on monitor earlier this stay none overnight (6) Chronic kidney disease, stage III (moderate): baseline CrCl in the 50s repeat BMP in am (7) Pre-diabetes: glucose levels have been normal/acceptable (8) Rib fractures: left - #'s 4th-6th no symptoms from such monitor due to recent coughing spells from COPD?? could these by pathologic?? (9) DVT prophylaxis: holding heparin in light of need for repeat flex sig in am cleared by PT/OT for d/c home updated daughter at bedside today total time today about 45 minutes - spoke with heme/onc, rad onc, GI and family Subjective during my visit today to pt's room her daughter was at bedside patient had no new complaints is hoping for d/c home soon she is aware she will need repeat flex sig tomorrow as biopsies from colonoscopy yesterday were inconclusive (necrotic cells were seen on path) tele w/ NSR or sinus tach only Review of Systems 2 Constitutional: no fever and no chills Respiratory: + cough; no dyspnea Cardiovascular: no chest pain Gastrointestinal: no abdominal pain and no blood in stools Physical Exam Constitutional: no acute distress and no altered mental status ENMT: external ear and nose normal, oropharynx normal Respiratory: no respiratory distress Auscultation: no crackles and no wheezes Cardiovascular: Rate/Rhythm: regular rhythm and + tachycardic Heart Sounds: normal S1 and normal S2; no murmur Vessels: posterior tibial pulses present and dorsalis pedis pulses present; no JVD Extremities: no edema Gastrointestinal (Abdomen): normal bowel sounds, soft, nontender, no hepatosplenomegaly Psychiatric: Orientation: alert and oriented x 3 Affect: + anxious affect Results & Data ([facility]) Vital Signs (Past 12 Hours) Vital Signs Temp Pulse Resp BP BP Pulse Ox 06/05/19 19:57 37.1 C 104 H 16 144/72 H 94 06/05/19 15:30 90 16 94 06/05/19 15:26 36.9 C 95 H 24 121/67 92 06/05/19 12:27 36.6 C 94 H 16 119/73 92 PG Care Time/CCT Total # of Minutes Spent Total Time Spent with Patient: Total time spent is greater than 50% in coordination of care (as documented) at patient's floor/unit and/or counseling patient: Coding Level of Care Code 17414 Subseq Hosp Care Lvl 3 Diagnoses Mass of colon K63.89 COPD (chronic obstructive pulmonary disease) J44.1 COPD type: COPD with acute exacerbation H/O ETOH abuse F10.11 HTN (hypertension) I10 Hypertension type: essential hypertension Atrial arrhythmia I49.8 Chronic kidney disease, stage III (moderate) N18.3 Pre-diabetes R73.03 Rib fractures S22.42XD Encounter type: subsequent encounter Rib fracture type: multiple ribs Fracture type: closed Laterality: left Fracture healing: with routine healing DVT prophylaxis Z29.9 (1) COPD (chronic obstructive pulmonary disease) COPD type: COPD with acute exacerbation Qualified Code(s): J44.1 - Chronic obstructive pulmonary disease with (acute) exacerbation (2) HTN (hypertension) Hypertension type: essential hypertension Qualified Code(s): I10 - Essential (primary) hypertension (3) Rib fractures Encounter type: subsequent encounter Rib fracture type: multiple ribs Fracture type: closed Laterality: left Fracture healing: with routine healing Qualified Code(s): S22.42XD - Multiple fractures of ribs, left side, subsequent encounter for fracture with routine healing
[2019-06-06] MEDS: IPRATROPIUM BROMIDE NEB SOLN 0.02% 2.5 ML VIAL NEB SCH ×2 (07:03→15:42)
[2019-06-06 07:09] LABS: Hematocrit (blood only) 36.8 % (37-47); Hemoglobin 11.8 g/dL (12.0-16.0); Mean Corpuscular Hemoglobin 27.7 pg (25-34); Mean Corpuscular Hgb Conc 32.1 g/dL (32-36); Mean Corpuscular Volume 86.4 fL (80-100); Platelet Count 367 K/uL (130-400); RDW Coefficient of Variation 16.1 % (11.5-14.5); RDW Standard Deviation 50.5 fL (36.4-46.3); Red Blood Count 4.26 M/uL (4.2-5.4); White Blood Count 10.28 K/uL (4.8-10.8)
[2019-06-06 07:43] LABS: BUN Creatinine Ratio 10.8 (10-20); Calcium 8.8 mg/dl (8.5-10.1); Creatinine Clr Calc Pharmacy 68.5 ml/min; Est GFR (African American) 95.3; Est GFR (Non-African American) 82.2; Potassium 3.9 mmol/L (3.5-5.1)
[2019-06-06] MEDS: CEROVITE ADV FORMULA TAB PO SCH (08:58)
[2019-06-06] MEDS: METOPROLOL TARTRATE 25 MG TAB PO SCH (08:58)
[2019-06-06] MEDS: DULOXETINE HCL 30 MG CAP PO SCH (08:58)
[2019-06-06] MEDS: FOLIC ACID 1 MG TAB PO SCH (08:59)
[2019-06-06] MEDS: THIAMINE HCL 100 MG TAB PO SCH (08:59)
[2019-06-06] MEDS: HEPARIN SOD 5,000 UNIT/0.5 ML VIAL SQ SCH ×2 (09:00→20:38)
[2019-06-06] MEDS: DESONIDE CR 15 GM TUBE EXT SCH ×2 (09:01→20:09)
--- NOTE | 2019-06-06 10:43 | Gastroenterology Progress Note ---
Date of Service June 06, 2019 Assessment & Plan (1) Mass of colon: Flexible sigmoidoscopy today by Dr. Mike fonseca. Appreciate surgery, heme-onc and radiation oncology input. Further recommendations to follow colonoscopy. Present on Admission?: Yes Supervising Physician Co-Signing Physician Notes Attending attestation I have seen, examined this patient, and agree with the findings and above by our mid-level provider ALYSSA Enriquez, with the following additions -Doing well, pathology previously supplied was necrotic, therefore, repeating flex sig today for additional tissue acquistion Subjective Ms. Leonor Duffy is an 78-year-old female patient increased alcohol intake,COPD, HTN, pre-DM, CKD-3, PE (not on chronic anticoagulation), anxiety. She was admitted on 06/01 for SOB. Because a CT of the abdomen pelvis completed in April for abdominal pain suggested rectosigmoid mass she underwent colonoscopy on 06/04/2019. Biopsy of the mass consisted of necrotic tissue. Flex sig is being planned for this afternoon to attempt another tissue sample. The patient denies any abdominal pain she is AAO, hemodynamically stable, denies any CP or SOB and agrees to undergo the procedure. Her son is at the bedside. She has been n.p.o. since midnight. WBC 10, Hb 11.8, INR 1.0, sodium 137, potassium 3.7, BUN 7, creatinine 0.6, glucose 89. Review of Systems Review of Systems: ROS: Gen: Denies weakness, fevers, weight loss Eyes: No eye redness, or pain, no recent vision changes Resp: No SOB, no cough Cardio: No palpitations/irregular beats, no chest pain GI: No abdominal pain, no nausea/vomiting : Denies pain on urination Skin: No jaundice, itching or new rashes Physical Exam Constitutional: WD/WN, vitals as above Eyes: PERRL, conjunctivae normal, anicteric sclerae ENMT: external ear and nose normal, oropharynx normal Neck: trachea midline, no thyromegaly Respiratory: normal respiratory effort, lungs clear to auscultation Cardiovascular: RRR, no murmur, no edema Gastrointestinal (Abdomen): normal bowel sounds, soft, nontender, no hepatosplenomegaly (obese) Musculoskeletal: no cyanosis or clubbing, extremities motor strength 5/5 Skin: + rash (on chest, dry/flaky) Neurologic: PERRL, EOMI, accommodation nl, no face palsy, no dysarthria Psychiatric: A+Ox3, euthymic affect Speech: normal rate/rhythm/volume of speech Affect: no depressed affect and no anxious affect Cognition: recent memory grossly intact Insight: + limited insight Lymphatic: no cervical or axillary lymphadenopathy Results & Data Vital Signs (Past 12 Hours) Vital Signs Temp Pulse Resp BP Pulse Ox 06/06/19 10:31 37.1 C 97 H 18 126/76 06/06/19 07:51 36.9 C 106 H 17 115/65 92 06/06/19 07:03 107 H 18 93 06/06/19 04:53 36.8 C 105 H 18 122/67 93 06/05/19 23:23 94 H 16 94 06/05/19 23:04 36.5 C 104 H 18 120/67 93
--- NOTE | 2019-06-06 10:55 | Anesthesiology Consultation ---
Date of Service June 06, 2019 Assessment & Plan Chart Review Chart Review: Acceptable Risk for Surgery and Patient NOT seen in Pre Admission Testing Consults Requested none History Surgery Operation Date: 06/04/19 16:00 Proposed Procedures p Colonoscopy Dr Jorge Patel Operation Date: 06/06/19 16:30 Proposed Procedures p Flexible Sigmoidoscopy Dr Jorge Patel Height/Weight Height: 5 ft 6 in Weight: 77.8 kg Allergies Allergy/AdvReac Type Severity Reaction Status Date / Time codeine Allergy Intermediate RASH Verified 06/02/19 08:03 amoxicillin Allergy Unknown UNKNOWN Verified 06/02/19 08:03 azithromycin Allergy Unknown Unknown Verified 06/02/19 08:03 neomycin Allergy Unknown ? RASH Verified 06/02/19 08:03 Sulfa (Sulfonamide Allergy Unknown BODY RASH, Verified 06/02/19 08:03 Antibiotics) YEAST INFECTIONS simvastatin AdvReac Unknown gi Verified 06/02/19 08:03 bleed/distress Medications Home Medications Medication Instructions Recorded Confirmed Last Taken atenolol 100 mg tablet 100 mg PO DAILY #90 tab 12/20/18 05/04/19 05/03/19 triamcinolone acetonide 1 appln TOP TID PRN 01/07/19 05/04/19 Unknown cyanocobalamin (vitamin B-12) 1,000 mcg PO DAILY #30 cap 01/08/19 05/04/19 05/03/19 folic acid 1 mg PO DAILY #30 tab 01/08/19 05/04/19 05/03/19 pantoprazole 40 mg tablet,delayed 40 mg PO BID #60 tab 01/22/19 05/04/19 05/03/19 release duloxetine 30 mg capsule,delayed 30 mg PO DAILY #30 cap 03/10/19 05/04/19 05/03/19 release lisinopril 10 mg tablet 10 mg PO DAILY #30 tab 03/20/19 05/04/19 05/03/19 benzonatate 100 mg capsule 100 mg PO TID PRN #30 cap 04/24/19 05/04/19 Unknown tramadol 50 mg tablet 50 mg PO Q8H PRN #30 tab 05/12/19 05/12/19 Unknown No Known Home Medications 05/31/19 05/31/19 Unknown Active Medications Generic Name Dose Route Start Last Admin Trade Name Freq PRN Reason Stop Dose Admin Desonide 1 appln 06/01/19 10:45 06/06/19 09:01 Desowen 0.05% EXT 07/01/19 10:44 1 appln BID TAVARES Administration Duloxetine HCl 30 mg 06/02/19 09:15 06/06/19 08:58 Cymbalta PO 07/02/19 09:14 30 mg QAM TAVARES Administration Folic Acid 1 mg 06/05/19 09:00 06/06/19 08:59 Folvite PO 07/05/19 08:59 1 mg QAM TAVARES Administration Heparin Sodium (Porcine) 5,000 units 05/31/19 21:00 06/06/19 09:00 Heparin Sodium (Porcine) SQ 06/30/19 20:59 5,000 units Q12 TAVARES Administration Hydralazine HCl 5 mg 06/01/19 10:50 06/03/19 08:00 Apresoline PO 06/30/19 18:13 5 mg QID PRN Administration SBP > 180 or DBP > 100 Ipratropium Donie 0.5 mg 06/02/19 15:00 06/06/19 07:03 Atrovent 0.02% 0.5mg/2.5ml NEB 07/02/19 14:59 0.5 mg Q8R TAVARES Administration Multivitamins/Minerals 1 tab 06/05/19 09:00 06/06/19 08:58 Multivitamin W/ Minerals Tab PO 07/05/19 08:59 1 tab QAM TAVARES Administration Thiamine HCl 200 mg 06/05/19 09:00 06/06/19 08:59 Vitamin B-1 PO 07/05/19 08:59 200 mg QAM TAVARES Administration NPO Date Last Intake of Fluids: 06/05/19 Time Last Intake of Fluids: 20:00 Date Last Intake of Solids: 06/05/19 Time Last Intake of Solids: 18:00 Past Medical History Medical History Alcohol intoxication (Resolved) January 2019-alcohol 231 Anxiety (Chronic) Arthritis (Chronic) Chronic kidney disease, stage III (moderate) (Chronic) Closed head injury (Resolved) Eczema Fatty liver (Chronic) GERD without esophagitis (Chronic) Hypertension (Chronic) Mass of colon (Acute) Pre-diabetes (Chronic) Pulmonary embolism (Resolved) Vitamin D deficiency (Chronic) Past Family History Family History Sister Depression Father Kidney stones Lung cancer Seizures Sister Lung cancer Mother No known health problems Sister Vaginal cancer Other Family history non-contributory Past Surgical History Surgical History H/O total hysterectomy History of knee replacement R Hx of appendectomy (Resolved) Social History Smoking Status: Former smoker tobacco type: cigarettes Do You Dip or Chew Tobacco: No Hx Alcohol Use: Yes Alcohol type: hard liquor alcohol intake frequency: 0-2 drinks per day Alcohol Intake Frequency Comment: several a week, 2 a day Hx Substance Use: No substance use type: does not use Physical Exam Vital Signs Last Vital Signs Temp 37.1 C 06/06/19 10:31 Pulse 97 H 06/06/19 10:31 Resp 18 06/06/19 10:31 BP 126/76 06/06/19 10:31 Pulse Ox 92 06/06/19 07:51 Testing Laboratory Results 06/06/19 06:51 06/06/19 06:51 PT 10.3 Seconds (9.0-12.0) 05/31/19 11:35 INR 1.0 (0.9-1.1) 05/31/19 11:35 APTT 24.0 Seconds (21.0-31.0) 05/31/19 11:35 Hemoglobin A1c 5.9 % (4.5-5.6) H 06/01/19 05:37 Urine Color Dark Yellow 05/31/19 12:22 Urine Appearance Clear (Clear) 05/31/19 12:22 Urine pH 6.0 (4.5-7.5) 05/31/19 12:22 Ur Specific Gaastra 1.026 (1.000-1.030) 05/31/19 12:22 Urine Protein 1+ (Negative) H 05/31/19 12:22 Urine Glucose (UA) Negative (Negative) 05/31/19 12:22 Urine Ketones 2+ (Negative) H 05/31/19 12:22 Urine Nitrite Negative (Negative) 05/31/19 12:22 Ur Leukocyte Esterase Trace (Negative) H 05/31/19 12:22 Urine WBC (Auto) 1-5 /hpf (0-5) 05/31/19 12:22 Urine RBC (Auto) 0-4 /hpf (0-4) 05/31/19 12:22 U Hyaline Cast (Auto) 1-5 /lpf (0-5) 05/31/19 12:22 U Epithel Cells (Auto) >30 /lpf (0-5) H 05/31/19 12:22 Urine Bacteria (Auto) Negative (Negative) 05/31/19 12:22 05/31/19 11:35 Aerobic Blood Culture - Final Blood No growth in Aerobic bottle after 5 days. Anaerobic Blood Culture - Final No growth in Anaerobic bottle after 5 days. 05/31/19 12:01 Aerobic Blood Culture - Final Blood No growth in Aerobic bottle after 5 days. Anaerobic Blood Culture - Final No growth in Anaerobic bottle after 5 days. 06/02/19 12:30 Gram Stain - Final Sputum, Expectorated Sputum Culture - Final
[2019-06-06] MEDS ORDERED: ePHEDrine sulfate 50 MG/ML AMP IV PRN (11:01)
[2019-06-06] MEDS ORDERED: ATROPINE SULFATE 0.1 MG/ML 10ML SYR IV PRN (11:01)
[2019-06-06] MEDS ORDERED: LIDOCAINE HCL 2% 2 ML VIAL/AMP(20MG/ML) INFIL ONE (11:08)
[2019-06-06] MEDS ORDERED: PROPOFOL IV EMULSION 10 MG/ML 20 ML VIAL IV ONE (11:08)
--- NOTE | 2019-06-06 11:32 | GI REPORT ---
Patient Name: Jumana Duffy Procedure Date: 06/06/2019 11:05 AM Date of : 1940 Admit Type: Inpatient Age: 78 Gender: Female Attending MD: Mike Patel MD Procedure: Flexible Sigmoidoscopy Providers: Mike Patel MD Referring MD: Jeffrey Salmeron Indications: Rectal cancer, Follow-up of rectal cancer Medicines: Monitored Anesthesia Care Complications: No immediate complications. Estimated blood loss: None. Estimated Blood Loss: Estimated blood loss was minimal. Procedure: Pre-Anesthesia Assessment: - Pre-Anesthesia Assessment: - Prior to the procedure, a History and Physical was performed, and patient medications, allergies and sensitivities were reviewed. The patient's tolerance of previous anesthesia was reviewed. Please see [employer] for complete details. - The risks and benefits of the procedure and the sedation options and risks were discussed with the patient. All questions were answered and informed consent was obtained. - Patient identification and proposed procedure were verified prior to the procedure by the physician and the nurse. The procedure was verified in the pre-procedure area in the procedure room. After obtaining informed consent, the endoscope was passed carefully and meticuously under direct vision and only advanced when the lumen was clearly identified, C02 insuflation was utilized throughout the entirity of the procedure. Throughout the procedure, the patient's blood pressure, pulse, and oxygen saturations were monitored continuously. After obtaining informed consent, the endoscope was passed under direct vision. Throughout the procedure, the patient's blood pressure, pulse, and oxygen saturations were monitored continuously. The Endoscope was introduced through the anus and advanced to the sigmoid colon. The flexible sigmoidoscopy was accomplished without difficulty. The patient tolerated the procedure well. The quality of the bowel preparation was good. Findings: A fungating and ulcerated partially obstructing large mass was found in the rectum. The mass was circumferential. Please see previous colnoscopy for measurements. Tattoo was visible placed two days prior. Biopsies were taken with a cold forceps for histology. Impression: - Malignant partially obstructing tumor in the rectum. Biopsied. Recommendation: - Return patient to [facility] for possible discharge same day. - Resume previous diet. - Follow up with general surgery, oncology, and radiation oncology as planned. Mike Patel MD 06/06/2019 11:31:35 AM This report has been signed electronically. Note Initiated On: 06/06/2019 11:05 AM Number of Addenda: 0 I attest to the content of the Intraoperative Record and orders documented therein, exceptions below {[id number]}
--- NOTE | 2019-06-06 12:36 | Anesthesiology Progress Note ---
Date of Service June 06, 2019 Anesthesia Post Procedure Vital Signs Vital Signs: Temp Pulse Resp BP BP Pulse Ox 06/06/19 12:04 96 H 18 108/64 95 06/06/19 11:45 98 H 18 106/61 94 06/06/19 11:33 88 18 114/47 L 06/06/19 10:31 37.1 C 97 H 18 126/76 06/06/19 07:51 36.9 C 106 H 17 115/65 92 06/06/19 07:03 107 H 18 93 06/06/19 04:53 36.8 C 105 H 18 122/67 93 06/05/19 23:23 94 H 16 94 06/05/19 23:04 36.5 C 104 H 18 120/67 93 06/05/19 19:57 37.1 C 104 H 16 144/72 H 94 06/05/19 15:30 90 16 94 06/05/19 15:26 36.9 C 95 H 24 121/67 92 Transfer of Care Handoff Completed per policy Notes Mental Status: alert / awake / arousable Patient Amnestic to Procedure: Yes Nausea / Vomiting: adequately controlled Pain: adequately controlled Airway Patency, RR, SpO2: stable & adequate BP & HR: stable & adequate Hydration State: stable & adequate Anesthetic Complications: no major complications apparent and Pt Satisfied with anesthetic care
[2019-06-06] MEDS ORDERED: METOPROLOL TARTRATE 1 MG/ML VIAL IV STA (18:20)
[2019-06-06] MEDS: ACETAMINOPHEN 325 MG TAB PO PRN (18:32)
--- NOTE | 2019-06-06 19:26 | Hospitalist Progress Note ---
Date of Service June 06, 2019 Assessment & Plan (1) Atrial arrhythmia: Earlier this admission patient had had runs of tachycardia. Seen by Dr Dixon, cardiology - at that time the runs were felt to be sinus tachycardia. Echo with normal EF. Overnight had NSR or sinus tach. Then, late afternoon today, patient converted to what appears to be atrial tachycardia. It does not appear to be atrial fibrillation. A flutter is possible but unlikely. She has no significant symptoms from this atrial arrhythmia. I had increased her metoprolol this am to 50mg BID as I anticipated her being d/c to home today. Carotid massage did not slow or terminate the arrhythmia. Will attempt lopressor 2.5mg IV x 1 now. If no rate response to this then will try cardizem IV. (2) Mass of colon: s/p colonoscopy 06/04/2019. very large rectal mass most certainly is colorectal cancer. unfortunately the biopsies from the colonoscopy showed necrotic cells only and thus flex sig was performed today for repeat biopsy for definitive dx. appreciate [facility] assistance. recent CTA chest w/o mets but 04/2019 CT abd/pelvis concerning for lymph node involvement. appreciate consultations by heme/onc, rad onc, and gen surg. he will need simultaneous chemo with radiation - likely to be initiated as outpatient. following several weeks of adjuvant chemo/radiation then likely surgical resection. labs today stable. referral HAS BEEN made to [facility] heme/onc & rad onc for establishment of care. [facility] will be calling patient after d/c to set this appointment up. (3) COPD (chronic obstructive pulmonary disease): exacerbation resolved. remains on atrovent only. will change atrovent nebs to prn combivent. deferring on steroids as lungs are clear and minimal symptoms. (4) H/O ETOH abuse: noted. no evidence of etoh withdrawal while here. counseled to abstain from etoh post-d/c. (5) HTN (hypertension): cont beta kenia controlled. (6) Chronic kidney disease, stage III (moderate): baseline CrCl in the 50s repeat BMP stable today (7) Pre-diabetes: glucose levels have been normal/acceptable while hospitalized (8) Rib fractures: left - #'s 4th-6th no symptoms from such monitor due to recent coughing spells from COPD?? could these by pathologic?? (9) DVT prophylaxis: holding heparin in light of flex sig today if she stays beyond tomorrow then add heparin SC cleared by PT/OT for d/c home updated daughter at bedside today unfortunately the tachycardia will hold her discharge up Subjective saw patient several times today. afternoon visit -- patient resting comfortably denied any complaints had flex sig this am w/o complications didn't have much appetite following the flex sig about 1-2 hours later I noted that the pt's HR on monitoring was 130s with patient simply laying in bed tele strip -- a tach? a flutter? other? 12-lead EKG - a tach? patient w/o symptoms of chest pain, dyspnea perhaps had mild palpitations Review of Systems Constitutional: + fatigue; no fever Respiratory: + cough; no dyspnea and no wheezing Cardiovascular: no chest pain, no orthopnea and no paroxysmal nocturnal dyspnea Gastrointestinal: no abdominal pain, no nausea and no vomiting Physical Exam Constitutional: + altered mental status (mild memory issues; slight confusion); no acute distress ENMT: external ear and nose normal, oropharynx normal Respiratory: no respiratory distress Auscultation: no crackles and no wheezes Cardiovascular: Rate/Rhythm: regular rhythm and + tachycardic Heart Sounds: normal S1 and normal S2; no murmur Vessels: posterior tibial pulses present and dorsalis pedis pulses present; no JVD Extremities: no edema Gastrointestinal (Abdomen): normal bowel sounds, soft, nontender, no hepatosplenomegaly Psychiatric: Orientation: alert, oriented to person and oriented to place; + not oriented to time Results & Data ([place]) Vital Signs (Past 12 Hours) Vital Signs Temp Pulse Pulse Pulse Resp BP BP 06/06/19 18:54 36.6 C 118 H 20 06/06/19 18:29 139 H 127/64 06/06/19 18:21 139 H 16 127/64 06/06/19 15:44 108 H 18 06/06/19 14:49 111 H 06/06/19 12:04 96 H 18 108/64 06/06/19 11:45 98 H 18 106/61 06/06/19 11:33 88 18 114/47 L 06/06/19 10:31 37.1 C 97 H 18 126/76 06/06/19 07:51 36.9 C 106 H 17 115/65 BP Pulse Ox 06/06/19 18:54 127/64 94 06/06/19 18:29 06/06/19 18:21 95 06/06/19 15:44 92 06/06/19 14:49 06/06/19 12:04 95 06/06/19 11:45 94 06/06/19 11:33 06/06/19 10:31 06/06/19 07:51 92 Laboratory Results Laboratory Results - last 24 hr 06/06/19 06/06/19 06:51 06:51 WBC 10.28 RBC 4.26 Hgb 11.8 L Hct 36.8 L MCV 86.4 MCH 27.7 MCHC 32.1 RDW Std Deviation 50.5 H RDW Coeff of Ma[place] 16.1 H Plt Count 367 MPV 10.0 Sodium 137 Potassium 3.9 Chloride 106 Carbon Dioxide 24 Anion Gap 7.0 BUN 7 Creatinine 0.69 Est Cr Clr Drug Dosing 68.5 Est GFR ( Amer) 95.3 Est GFR (Non-Af Amer) 82.2 BUN/Creatinine Ratio 10.8 Glucose 89 Calcium 8.8 PG Care Time/CCT Total # of Minutes Spent Total Time Spent with Patient: Total time spent is greater than 50% in coordination of care (as documented) at patient's floor/unit and/or counseling patient: Coding Level of Care Code 59049 Subseq Hosp Care Lvl 3 Diagnoses Atrial arrhythmia I49.8 Mass of colon K63.89 COPD (chronic obstructive pulmonary disease) J44.1 COPD type: COPD with acute exacerbation H/O ETOH abuse F10.11 HTN (hypertension) I10 Hypertension type: essential hypertension Chronic kidney disease, stage III (moderate) N18.3 Pre-diabetes R73.03 Rib fractures S22.42XD Encounter type: subsequent encounter Rib fracture type: multiple ribs Fracture type: closed Laterality: left Fracture healing: with routine healing DVT prophylaxis Z29.9 (1) COPD (chronic obstructive pulmonary disease) COPD type: COPD with acute exacerbation Qualified Code(s): J44.1 - Chronic obstructive pulmonary disease with (acute) exacerbation (2) HTN (hypertension) Hypertension type: essential hypertension Qualified Code(s): I10 - Essential (primary) hypertension (3) Rib fractures Encounter type: subsequent encounter Rib fracture type: multiple ribs Fracture type: closed Laterality: left Fracture healing: with routine healing Qualified Code(s): S22.42XD - Multiple fractures of ribs, left side, subsequent encounter for fracture with routine healing
[2019-06-06] MEDS ORDERED: IPRATROPIUM BROMIDE/ALBUTEROL respimat INH INH PRN (19:45)
[2019-06-06] MEDS: METOPROLOL TARTRATE 50 MG TAB PO SCH (20:38)
--- NOTE | 2019-06-07 06:18 | Hospitalist Progress Note ---
Date of Service June 07, 2019 Assessment & Plan (1) Atrial arrhythmia: Earlier this admission patient had had runs of tachycardia. Seen by Dr Dixon, cardiology - at that time the runs were felt to be sinus tachycardia. Echo with normal EF. Overnight had NSR or sinus tach. Then, late afternoon today, patient converted to what appears to be atrial tachycardia. It does not appear to be atrial fibrillation. A flutter is possible but unlikely. She has no significant symptoms from this atrial arrhythmia. I had increased her metoprolol this am to 50mg BID as I anticipated her being d/c to home today. Carotid massage did not slow or terminate the arrhythmia. Will attempt lopressor 2.5mg IV x 1 now. If no rate response to this then will try cardizem IV. (2) Mass of colon: s/p colonoscopy 06/04/2019. very large rectal mass most certainly is colorectal cancer. unfortunately the biopsies from the colonoscopy showed necrotic cells only and thus flex sig was performed today for repeat biopsy for definitive dx. appreciate [facility] assistance. recent CTA chest w/o mets but 04/2019 CT abd/pelvis concerning for lymph node involvement. appreciate consultations by heme/onc, rad onc, and gen surg. he will need simultaneous chemo with radiation - likely to be initiated as outpatient. following several weeks of adjuvant chemo/radiation then likely surgical resection. labs today stable. referral HAS BEEN made to [facility] heme/onc & rad onc for establishment of care. [facility] will be calling patient after d/c to set this appointment up. (3) COPD (chronic obstructive pulmonary disease): exacerbation resolved. remains on atrovent only. will change atrovent nebs to prn combivent. deferring on steroids as lungs are clear and minimal symptoms. (4) H/O ETOH abuse: noted. no evidence of etoh withdrawal while here. counseled to abstain from etoh post-d/c. (5) HTN (hypertension): cont beta kenia controlled. (6) Chronic kidney disease, stage III (moderate): baseline CrCl in the 50s repeat BMP stable today (7) Pre-diabetes: glucose levels have been normal/acceptable while hospitalized (8) Rib fractures: left - #'s 4th-6th no symptoms from such monitor due to recent coughing spells from COPD?? could these by pathologic?? (9) DVT prophylaxis: holding heparin in light of flex sig today if she stays beyond tomorrow then add heparin SC cleared by PT/OT for d/c home updated daughter at bedside today unfortunately the tachycardia will hold her discharge up Subjective saw patient several times today. afternoon visit -- patient resting comfortably denied any complaints had flex sig this am w/o complications didn't have much appetite following the flex sig about 1-2 hours later I noted that the pt's HR on monitoring was 130s with patient simply laying in bed tele strip -- a tach? a flutter? other? 12-lead EKG - a tach? patient w/o symptoms of chest pain, dyspnea perhaps had mild palpitations Results & Data ([facility]) Vital Signs (Past 12 Hours) Vital Signs Temp Pulse Pulse Pulse Resp BP BP 06/07/19 04:06 36.9 C 98 H 14 112/65 06/07/19 00:00 36.9 C 90 17 06/06/19 23:00 88 06/06/19 18:54 36.6 C 118 H 20 06/06/19 18:29 139 H 127/64 06/06/19 18:21 139 H 16 127/64 BP Pulse Ox 06/07/19 04:06 95 06/07/19 00:00 112/64 92 06/06/19 23:00 06/06/19 18:54 127/64 94 06/06/19 18:29 06/06/19 18:21 95 Coding Diagnoses Atrial arrhythmia I49.8 Mass of colon K63.89 COPD (chronic obstructive pulmonary disease) J44.1 COPD type: COPD with acute exacerbation H/O ETOH abuse F10.11 HTN (hypertension) I10 Hypertension type: essential hypertension Chronic kidney disease, stage III (moderate) N18.3 Pre-diabetes R73.03 Rib fractures S22.42XD Encounter type: subsequent encounter Fracture healing: with routine healing Fracture type: closed Laterality: left Rib fracture type: multiple ribs DVT prophylaxis Z29.9 (1) Rib fractures Encounter type: subsequent encounter Fracture healing: with routine healing Fracture type: closed Laterality: left Rib fracture type: multiple ribs Qualified Code(s): S22.42XD - Multiple fractures of ribs, left side, subsequent encounter for fracture with routine healing (2) COPD (chronic obstructive pulmonary disease) COPD type: COPD with acute exacerbation Qualified Code(s): J44.1 - Chronic obstructive pulmonary disease with (acute) exacerbation (3) HTN (hypertension) Hypertension type: essential hypertension Qualified Code(s): I10 - Essential (primary) hypertension
[2019-06-07] MEDS: ACETAMINOPHEN 325 MG TAB PO PRN (07:53)
[2019-06-07] MEDS: DESONIDE CR 15 GM TUBE EXT SCH (07:54)
[2019-06-07] MEDS: HEPARIN SOD 5,000 UNIT/0.5 ML VIAL SQ SCH (07:55)
[2019-06-07] MEDS: CEROVITE ADV FORMULA TAB PO SCH (08:32)
[2019-06-07] MEDS: THIAMINE HCL 100 MG TAB PO SCH (08:32)
[2019-06-07] MEDS: FOLIC ACID 1 MG TAB PO SCH (08:32)
[2019-06-07] MEDS: METOPROLOL TARTRATE 50 MG TAB PO SCH (08:32)
[2019-06-07] MEDS: DULOXETINE HCL 30 MG CAP PO SCH (08:32)
--- NOTE | 2019-06-07 08:54 | Discharge Summary ---
Date of Service June 07, 2019 Admission HPI Per Admitting Provider healthy 78yo F p/w 1 wk of increasing SOB, intermittent productive cough with yellow-santiago sputum and chills. Has been in bed most of the week. SOB acutely worse today prompting 911 activation. EKG w/ sinus tach. labs unremarkable and nondx. lactate=2.3, 2.2 WBC=10.4 flu negative. possible pna. pt had previously (apr 2019) been told about suspicious rectal mass and she was referred to GI but pt never went. initially started on IV abx for possible pneumonia vs bronchitis Principal Diagnosis atrial tachyarrhythmia. ruled out for Afib acute respiratory failure lactic acidosis ruled out for sepsis and pneumomediastinum Discharge Exam Abnormal Exam: none Constitutional: No distress. HENT: Mouth/Throat: Oropharynx is clear and moist. Eyes: Conjunctivae are normal. No scleral icterus. Cardiovascular: Normal RRR and normal heart sounds. No murmur heard. Pulmonary/Chest: Effort normal. No respiratory distress. scant wheezing. Abdominal: Soft. Bowel sounds are normal. no distension. There is no tenderness. Musculoskeletal: no deformity. Neurological: alert and oriented. Psychiatric: Mood, affect and judgment normal. Discharge Data Allergies Allergy/AdvReac Type Severity Reaction Status Date / Time codeine Allergy Intermediate RASH Verified 06/02/19 08:03 amoxicillin Allergy Unknown UNKNOWN Verified 06/02/19 08:03 azithromycin Allergy Unknown Unknown Verified 06/02/19 08:03 neomycin Allergy Unknown ? RASH Verified 06/02/19 08:03 Sulfa (Sulfonamide Allergy Unknown BODY RASH, Verified 06/02/19 08:03 Antibiotics) YEAST INFECTIONS simvastatin AdvReac Unknown gi Verified 06/02/19 08:03 bleed/distress Consultations 05/31/19 13:06 ED Decision to Admit Stat 06/01/19 16:49 Consult Rn Plastics Routine 06/02/19 08:46 Consult Cardiology Routine 06/02/19 18:07 Consult Gastroenterology Routine 06/04/19 15:22 Consult General Surgery Routine 06/04/19 21:41 Consult Hematology Routine 06/05/19 08:38 Consult Radiation Oncology Routine Procedures Performed Operation Date: 06/04/19 16:00 Actual Procedures p Colonoscopy Polypectomy - Mike Patel s Injection Therapy / Sclerotherapy - Mike Patel Operation Date: 06/06/19 16:30 Actual Procedures p Flexible Sigmoidoscopy Biopsy - Mike Patel Ordered Studies 06/01/19 14:58 CT angio chest PE protocol Stat Hospital Course (1) Atrial arrhythmia: soon after admission, pt developed a tachy-arrhythmia that was initially thought to be Afib but later determined to not be Afib. sinus tach with PAC and atrial tachy-arrhythmia. ECHO was unremarkable (preserved LV systolic function wo signif valvular heart disease). she was initially Rx with CaB gtt and then transitioned to po BB. Carotid massage did not slow or terminate the arrhythmia. seen by cardiology Dr. Dixon (2) Mass of colon: 5cm rectal mass most likely colorectal cancer. unfortunately the biopsies from the colonoscopy 06.04.2019 showed necrotic cells only recent CTA chest w/o mets but 04/2019 CT abd/pelvis concerning for lymph node involvement. on 06.06, pt had flex sig and repeat biopsy results are pending appreciate consultations by heme/onc, rad onc, and gen surg. he will need simultaneous chemo with radiation - likely to be initiated as outpatient. following several weeks of adjuvant chemo/radiation then likely surgical resection. referral HAS BEEN made to [facility] heme/onc & rad onc for establishment of care. [facility] will be calling patient after d/c to set this appointment up. (3) COPD (chronic obstructive pulmonary disease): mild exacerbation resolved likely exacerbated by atrial tachycardia remains on atrovent only. avoiding beta agonist to avoid more tachycardia DC on spiriva (4) H/O ETOH abuse: possible excessive alcohol consumption no evidence of etoh withdrawal while here. counseled to abstain from etoh post-d/c. (5) HTN (hypertension): cont beta kenia controlled. (6) Chronic kidney disease, stage III (moderate): stable (7) Pre-diabetes: glucose levels have been normal/acceptable while hospitalized avoid sugars, refined carbs and large carb loads (8) Rib fractures: left - #'s 4th-6th but no symptoms no further action indicated (9) DVT prophylaxis: sq [facility] while in the hospital Total Time Total Time Spent Total Time Spent (In Minutes): 45 min Total Time Includes: Examination of the Patient, Discharge Planning, Medication Reconciliation, Communication With Other Providers and Other Discharge Plan Discharge Items Patient Disposition: Home - Home Health Services Reason For Visit: SOB Discharge Diagnosis: atrial tachycardia, bronchitis rectal mass, biopsy pending but concerning for cancer Condition on Discharge: Good Activity: Resume your previous activity Activity Comment: use walker & take caution initially as you build up strength; toilet riser Lifting: Gradually increase as tolerated Bathing: No limitations Exercise/Sports: Gradually increase as tolerated Driving/Machine Use: resume at your and your family's discretion as your strength increases. Weightbearing: Full weightbearing Non-emergency contact: Primary Care Provider Call non-emergency contact if: you have any medication questions and your temperature is above 101 Follow-up/Referrals: Jerry Dean MD [Surgeon] - (depending on the rectal mass biopsy results and further evaluation, you would see this doctor if you needed surgery. your PCP and Oncologist should guide you and if/when you should have this appointment ) Yessenia Cameron DO [Primary Care Provider] - 06/12/19 1:00 pm (Please, follow up at Dr. Cameron's office with her associate, Kadi Blankenship, on June 12 at 1:00 pm. *If you need to change this appointment, call their office at [phone].) Wiliam Monroe MD [Physician] - (as advised depending on rectal mass results. your PCP and Oncologist should guide you and if/when you should have this appointment) Sylvester Restrepo DO [Physician] - (Please, follow up with Dr. Sylvester Restrepo or Dr. Jeff Corbin at [facility]. *Their office is located in the rear of this hospital building. You will park BEHIND the hospital in [address] and enter via [facility]. If you have any questions, call their office at [phone].) Abhay Dixon MD [Physician] - (you may or may not need to see cardiology. You certainly can follow up with cardiology if you wish. otherwise, your PCP should be able to guide you. ) Jose L Porter MD [Physician] - (you should make appointment with pulmonary because you will need a better outpatient lung test evaluation in case you need an operation. ) Joanne Herman M.D. [Hospitalist] - (you may or may not need to see this doctor. if the rectal mass is cancer, your care will primarily be through surgery/oncologist/radiation doctor.) Dietitian Info: ZERO alcohol. prediabetic. avoid sugars and reduce refined carbs. Addtl Attending Provider Instructions: your rectal mass biopsy should be back < 7days and you can get results from your PCP and/or GI doc Pending Studies at Discharge: Yes Studies:: rectal mass biopsy Stand-Alone Forms: My [facility] [address] Medications and DC Order Prescriptions: New metoprolol tartrate 50 mg Tablet 50 mg PO BID Qty: 180 RF: 0 Spiriva with HandiHaler 18 mcg capsule, w/inhalation device 1 cap INH DAILY Qty: 30 RF: 1 Continued pantoprazole 40 mg tablet,delayed release (DR/EC) 40 mg PO BID Qty: 60 RF: 5 duloxetine 30 mg capsule,delayed release(DR/EC) 30 mg PO DAILY Qty: 30 RF: 0 benzonatate [Tessalon Perles] 100 mg capsule 100 mg PO TID PRN (Reason: cough) Qty: 30 RF: 0 tramadol 50 mg tablet 50 mg PO Q8H PRN (Reason: pain) Qty: 30 RF: 0 triamcinolone acetonide 0.025 % cream 1 appln TOP TID PRN (Reason: breakouts) RF: 0 cyanocobalamin (vitamin B-12) 1,000 mcg capsule 1,000 mcg PO DAILY Qty: 30 RF: 0 folic acid 1 mg tablet 1 mg PO DAILY Qty: 30 RF: 0 Discontinued atenolol 100 mg tablet 100 mg PO DAILY Qty: 90 RF: 3 lisinopril 10 mg tablet 10 mg PO DAILY Qty: 30 RF: 5 Discharge Orders: Discharge Order (Routine); Ordered 06/07/19 Ordered By: Sarahy Maher/Other Patient Handouts: Metoprolol Tartrate Oral tablet, Tiotropium Inhalation powder capsule Admission Data Admit Date/Time: 05/31/19 16:51 Attending Provider: Sarahy Serrato Admit Provider: Marcio Samano Primary Care Provider: Yessenia Cameron Other Providers: Milad Chang ; Marcio Samano ; Jose L Porter ; Abhay Dixon ; Joanne Herman ; Jerry Dean ; Sylvester Restrepo V ; Wiliam Monroe ; Jeffrey Salmeron Other Interventions: Discharge Summary Assessment (RN) Last Done: 06/07/19 08:52 DC Date/Time DO NOT enter until pt leaves facility: 06/07/19 10:30 Coding Level of Care Code D/C Day Management >30 mins Diagnoses Atrial arrhythmia I49.8 Mass of colon K63.89 COPD (chronic obstructive pulmonary disease) J44.1 COPD type: COPD with acute exacerbation H/O ETOH abuse F10.11 HTN (hypertension) I10 Hypertension type: essential hypertension Chronic kidney disease, stage III (moderate) N18.3 Pre-diabetes R73.03 Rib fractures S22.42XD Encounter type: subsequent encounter Fracture healing: with routine healing Fracture type: closed Laterality: left Rib fracture type: multiple ribs DVT prophylaxis Z29.9
--- NOTE | 2019-06-07 17:07 | Electrocardiogram Report ---
Test Reason : Blood Pressure : / mmHG Vent. Rate : 136 BPM Atrial Rate : 136 BPM P-R Int : 164 ms QRS Dur : 070 ms QT Int : 266 ms P-R-T Axes : 075 006 125 degrees QTc Int : 400 ms Possible Atrial tachycardia Septal infarct , age undetermined Nonspecific ST abnormality Abnormal ECG When compared with ECG of 02-JUN-2019 10:12, Premature ventricular complexes are no longer Present Septal infarct is now Present Nonspecific T wave abnormality now evident in Anterolateral leads Atrial tachycardia has replaced Sinus rhythm Confirmed by Get Balbuena ([id number]) on 06/07/2019 5:07:09 PM Referred By: REFERRED SELF Confirmed By:Get Balbuena
== END 2019-06-07 10:30 | disposition home health service (06) | DRG 374 ==
LOC: ED 11:10 → 2S 16:51 → SUATTDRO 16:51 → MERGE 16:51 → 2S 17:47 → 1E 06-01 15:45 → 2E 06-02 15:49

== ENCOUNTER 2019-07-30 15:23 | Observation (INO) ==
[2019-07-30] MEDS ORDERED: ONDANSETRON INJ 2 MG/ML 2 ML VIAL IV STA (15:32)
[2019-07-30] MEDS ORDERED: SODIUM CHLORIDE 0.9% 1000ML 1,000 ML IV SCH (15:45)
[2019-07-30 15:48] LABS: Hematocrit (blood only) 31.9 % (37-47); Hemoglobin 10.6 g/dL (12.0-16.0); Mean Corpuscular Hemoglobin 29.5 pg (25-34); Mean Corpuscular Hgb Conc 33.2 g/dL (32-36); Mean Corpuscular Volume 88.9 fL (80-100); Nucleated RBC # (auto) 0.04 K/uL (0-0); Nucleated RBC % (auto) 0.4 %; Platelet Count 301 K/uL (130-400); RDW Coefficient of Variation 19.9 % (11.5-14.5); Red Blood Count 3.59 M/uL (4.2-5.4); White Blood Count 9.19 K/uL (4.8-10.8)
--- NOTE | 2019-07-30 15:48 | Emergency Department Note ---
Impression & Plan Abdominal pain, Diarrhea, Enteritis, Acute hypokalemia, Acute dehydration Allergies Allergies Allergy/AdvReac Type Severity Reaction Status Date / Time codeine Allergy Intermediate RASH Verified 07/30/19 17:41 amoxicillin Allergy Unknown UNKNOWN Verified 07/30/19 17:41 azithromycin Allergy Unknown Unknown Verified 07/30/19 17:41 neomycin Allergy Unknown ? RASH Verified 07/30/19 17:41 Sulfa (Sulfonamide Allergy Unknown BODY RASH, Verified 07/30/19 17:41 Antibiotics) YEAST INFECTIONS simvastatin AdvReac Unknown gi Verified 07/30/19 17:41 bleed/distress Home Meds Home Medications Medication Instructions Recorded Confirmed capecitabine 1,600 mg PO BID 07/30/19 07/30/19 diphenoxylate-atropine 1 tab PO QID PRN 07/30/19 07/30/19 ondansetron HCl [Zofran] 4 mg PO Q6H PRN 07/30/19 07/30/19 Previous Rx's Medication Instructions Recorded pantoprazole 40 mg tablet,delayed 40 mg PO BID #60 tab 01/22/19 release metoprolol tartrate 50 mg PO BID #180 tab NS 06/07/19 umeclidinium 62.5 mcg/actuation 1 puffs INH DAILY #30 ea 06/11/19 blister powder for inhalation cholecalciferol (vitamin D3) 50 2,000 units PO DAILY #30 tab 06/12/19 mcg (2,000 unit) tablet duloxetine 30 mg capsule,delayed 30 mg PO DAILY #30 cap 06/12/19 release triamcinolone acetonide 0.025 % 1 appln TOP TID PRN #15 gm 06/12/19 topical cream cyanocobalamin (vitamin B-12) 1,000 mcg PO DAILY #30 cap 07/17/19 1,000 mcg capsule folic acid 1 mg tablet 1 mg PO DAILY #30 tab 07/17/19 ED Provider Note NAME: BONY YORK AGE: 79 SEX: F : 1940 ARRIVES VIA: Ambulance INFORMANT: Patient ED PROVIDER(S): Aman Rivera DO CHIEF COMPLAINT: Abdominal pain HPI: Patient is a 79-year-old female that presents the ER for periumbilical abdominal pain. Patient she has a past medical history of rectal cancer. She is undergoing oral chemotherapy for this. She denies any previous belly surgeries. She does admit to diarrhea. Belly pain is been present for the past 3 days. On palpation pain is a 10 out of 10 and sharp and stabbing. Does not radiate anywhere. No other exacerbating or remitting factors. She does admit to dry heaving. She has never had this before. ROS: See above HPI for pertinent positives & negatives. A total of 10 systems reviewed and were otherwise negative. PAST MEDICAL HISTORY:See Below PAST SURGICAL HISTORY:See Below FAMILY HISTORY:See Below SOCIAL HISTORY:See Below HOME MEDICATIONS:See Below ALLERGIES:See Below VITALS:See Below PHYSICAL EXAMINATION: GENERAL: Sitting up in bed, alert, well appearing, well nourished, no distress, non-toxic EYE EXAM: normal conjunctiva. OROPHARYNX: no exudate, no erythema, lips, buccal mucosa, and tongue normal and mucous membranes are moist NECK: supple, no nuchal rigidity, no adenopathy, non-tender LUNGS: Clear to auscultation. Normal chest wall mechanics HEART: no murmurs, S1 normal and S2 normal ABDOMEN: abdomen soft, diffuse abdominal tenderness periumbilical, normo-active bowel sounds, no masses, no rebound or guarding. BACK: Back is symmetrical on inspection and there is no deformity, no midline tenderness, no CVA tenderness. SKIN: no rashes and no bruising UPPER EXTREMITIES: upper extremities are grossly normal. LOWER EXTREMITIES: No pitting edema. NEURO EXAM: Normal sensorium, cranial nerves II-XII grossly intact, normal speech, no gross weakness of arms, no gross weakness of legs. MEDICAL DECISION MAKING: Patient is an 79-year-old female with rectal cancer that presents the ER for abdominal pain diarrhea and some intermittent vomiting. IV was established blood work was obtained. Labs show no significant leukocytosis but a mild anemia 10.6. Platelets were appropriate at 301. BMP with a mild hypo- bacteremia and hypokalemia 2.4. LFTs bilirubin and troponin was negative. Lipase was unremarkable. Patient was given IV fluids. CT abdomen pelvis shows no acute pathology. Patient was given IV fluids and IV potassium as well as IV Zofran. She was updated bedside. Discussed with the hospitalist. She was also given IV magnesium. Triage Nursing notes reviewed. Prior medical records reviewed Vital Signs: reviewed and remarkable for tachycardia Differential diagnosis: Differential diagnoses includes but is not limited to gastritis, peptic ulcer disease, GERD, gallbladder disease, pancreatitis, small bowel obstruction, acute coronary syndrome, pericarditis, ischemic bowel, irritable bowel disease, irritable bowel syndrome, appendicitis, diverticulitis, malignancy, hernia, urinary tract infection, torsion, /ectopic (if female), perf oration, trauma, infectious. ER treatment provided: See below Diagnostics interpreted by me: ECG: none Cardiac Monitoring: Sinus tachycardia rate of 105 Laboratory studies: As stated above and show below. Imaging studies: CT abdomen pelvis shows a nonspecific enteritis. Consultation(s): Discussed with Dr. Piña ED COURSE: Procedures: none Critical Care: None Past Med/Surg History Medical History Alcohol intoxication (Resolved) January 2019-alcohol 231 Anxiety (Chronic) Arthritis (Chronic) Chronic kidney disease, stage III (moderate) (Chronic) Closed head injury (Resolved) Eczema Fatty liver (Chronic) GERD without esophagitis (Chronic) Hypertension (Chronic) Pre-diabetes (Chronic) Pulmonary embolism (Resolved) Vitamin D deficiency (Chronic) Surgical History H/O total hysterectomy History of knee replacement R Hx of appendectomy (Resolved) Family History Sister Depression Father Kidney stones Lung cancer Seizures Sister Lung cancer Mother No known health problems Sister Vaginal cancer Other Family history non-contributory Denies family history of Colon cancer Ovarian cancer Prostate cancer Myocardial infarction Breast cancer Social History Preferred Language: Greenlandic Communication Ability: Effective Visual Impairment: No Limitations Hearing Ability: Normal 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 Beliefs That Will Affect Care: None marital status: Current Living Situation: Family Current Living Situation Comment: lives with twin sister current occupational status: retired Feels Safe at Home: Yes Smoking Status: Never smoker Tobacco Type: cigarettes ; Age Started Using Tobacco: 33 ; Age Quit Using Tobacco: 64 ; Second Hand Exposure: No ; Hx Alcohol Use: Yes Alcohol type: hard liquor Alcohol Intake Frequency: Daily Alcohol Intake Frequency Comment: 3 captain and coke per day Hx Substance Use: No Childhood Exposure to Second-Hand Smoke: Yes Diet Comment: regular caffeine: Yes (coffee) Dental Care, Regularly: Yes Physical Activity Frequency: 3-4 Times per Week Physical Activity Frequency Comment: LIMITED BY PHYSICAL CONDITION Seatbelt Use: always Sunscreen Use: Yes Results & Data (ED) Vital Signs Vital Signs - 24 hr 07/30/19 15:06 07/30/19 15:27 07/30/19 15:32 Temperature 37.0 C Temperature Source Oral Pulse Rate 107 H 97 H Pulse Rate from SpO2 Sensor Pulse Rhythm Regular Pulse Strength Normal Respiratory Rate 18 19 Respiratory Effort / Characteristics Non-Labored Respiratory Depth Normal Respiratory Pattern Regular Blood Pressure 114/69 114/69 Blood Pressure Mean 84 82 Blood Pressure Position Lying Pulse Oximetry 94 Oxygen Delivery Method Room Air Room Air Sepsis Recent Fever Within 48 Hours No Sepsis Action Taken by Nursing No Action Required 07/30/19 15:39 07/30/19 15:41 07/30/19 16:00 Temperature Temperature Source Oral Pulse Rate 101 H 96 H Pulse Rate from SpO2 Sensor Pulse Rhythm Pulse Strength Respiratory Rate 18 21 Respiratory Effort / Characteristics Respiratory Depth Respiratory Pattern Blood Pressure Blood Pressure Mean Blood Pressure Position Pulse Oximetry Oxygen Delivery Method Sepsis Recent Fever Within 48 Hours Sepsis Action Taken by Nursing 07/30/19 16:36 07/30/19 16:51 07/30/19 17:00 Temperature Temperature Source Pulse Rate 103 H 101 H 100 H Pulse Rate from SpO2 Sensor 102 H 102 H 101 H Pulse Rhythm Pulse Strength Respiratory Rate 22 16 19 Respiratory Effort / Characteristics Respiratory Depth Respiratory Pattern Blood Pressure 132/55 L 133/66 Blood Pressure Mean 82 83 Blood Pressure Position Pulse Oximetry 97 97 97 Oxygen Delivery Method Sepsis Recent Fever Within 48 Hours Sepsis Action Taken by Nursing 07/30/19 17:30 Temperature Temperature Source Pulse Rate 96 H Pulse Rate from SpO2 Sensor 96 H Pulse Rhythm Pulse Strength Respiratory Rate 22 Respiratory Effort / Characteristics Respiratory Depth Respiratory Pattern Blood Pressure 142/59 H Blood Pressure Mean 88 Blood Pressure Position Pulse Oximetry 97 Oxygen Delivery Method Sepsis Recent Fever Within 48 Hours Sepsis Action Taken by Nursing Laboratory Data Result diagrams: 07/30/19 15:35 07/30/19 15:35 Lab Results 07/30/19 07/30/19 07/30/19 Range/Units 15:35 15:35 15:35 WBC 9.19 (4.8-10.8) K/uL RBC 3.59 L (4.2-5.4) M/uL Hgb 10.6 L (12.0-16.0) g/dL Hct 31.9 L (37-47) % MCV 88.9 (80-100) fL MCH 29.5 (25-34) pg MCHC 33.2 (32-36) g/dL RDW Std Deviation 47.0 H (36.4-46.3) fL RDW Coeff of [place] 19.9 H (11.5-14.5) % Plt Count 301 (130-400) K/uL MPV 9.0 (7.4-10.4) fL Absolute Nucleated RBC 0.04 H (0-0) K/uL Nucleated RBC % (auto) 0.4 % Neutrophils % (Manual) 81.0 % Lymphocytes % (Manual) 5.0 % Monocytes % (Manual) 14.0 % Neutrophils # (Manual) 7.44 H (1.4-6.5) K/uL Total Absolute Neuts 7.44 H (1.4-6.5) K/uL Lymphocytes # (Manual) 0.46 L (1.2-3.4) K/uL Total Abs Lymphocytes 0.46 L (1.2-3.4) K/uL Monocytes # (Manual) 1.29 H (0.11-0.59) K/uL Dohle Bodies 1+ Polychromasia 1+ Anisocytosis Present PT 13.0 H (9.0-12.0) Seconds INR 1.2 H (0.9-1.1) Sodium 131 L (136-145) mmol/L Potassium 2.4 L* (3.5-5.1) mmol/L Chloride 99 (98-107) mmol/L Carbon Dioxide 24 (21-32) mmol/L Anion Gap 8.0 (3-11) BUN 12 (7-18) mg/dl Creatinine 0.93 (0.6-1.2) mg/dl Est Cr Clr Drug Dosing 50.6 ml/min Est GFR ( Amer) 66.8 Est GFR (Non-Af Amer) 57.6 BUN/Creatinine Ratio 12.5 (10-20) Glucose 127 H (70-99) mg/dl Calcium 8.4 L (8.5-10.1) mg/dl Total Bilirubin 0.7 (0.2-1) mg/dl AST 11 L (15-37) U/L ALT 14 (12-78) U/L Alkaline Phosphatase 60 (45-117) U/L Troponin I < 0.015 (0-0.045) ng/ml Total Protein 6.0 L (6.4-8.2) gm/dl Albumin 2.5 L (3.4-5.0) gm/dl Globulin 3.5 (2.5-4.0) gm/dl Albumin/Globulin Ratio 0.7 L (0.9-2) Lipase 35 L (73-393) U/L Administered Medications Potassium Chloride (K Fer / Wtr) 10 meq in 100 mls @ 100 mls/hr IV Q1H TAVARES Stop: 07/30/19 18:44 Last Admin: 07/30/19 16:46 Dose: 100 mls/hr Documented by: [id number] Ioversol (Optiray 320 100ml) 94 ml IV ONCE PRN PRN Reason: Interaction Checking Stop: 08/03/19 16:28 Last Admin: 07/30/19 16:29 Dose: 94 ml Documented by: [id number] Discontinued Medications Sodium Chloride (Nss 1000ml) 1,000 mls @ 999 mls/hr IV .Q1H1M TAVARES Stop: 07/30/19 16:45 Last Admin: 07/30/19 15:47 Dose: 999 mls/hr Documented by: [id number] Magnesium Sulfate/Dextrose (Magnesium Sulfate / D5w) 1 gm in 100 mls @ 100 m ls/hr IV ONE ONE Stop: 07/30/19 18:04 Last Admin: 07/30/19 17:35 Dose: 100 mls/hr Documented by: [id number] Ondansetron HCl (Zofran) 4 mg IV NOW STA Stop: 07/30/19 15:33 Last Admin: 07/30/19 16:46 Dose: 4 mg Documented by: [id number] Discharge Plan Visit Data Chief Complaint: GI Assessment Stated Complaint: DIARRHEA, VOMITING, NAUSEA ED Provider: Aman Rivera Discharge Problem: Abdominal pain, Diarrhea, Enteritis, Acute hypokalemia, Acute dehydration Forms Stand Alone Forms: [facility] Prescriptions Prescriptions: No Action pantoprazole 40 mg tablet,delayed release (DR/EC) 40 mg PO BID Qty: 60 RF: 5 Incruse Ellipta 62.5 mcg/actuation blister with device 1 puffs INH DAILY Qty: 30 RF: 2 duloxetine 30 mg capsule,delayed release(DR/EC) 30 mg PO DAILY Qty: 30 RF: 2 cholecalciferol (vitamin D3) 2,000 unit tablet 2,000 units PO DAILY Qty: 30 RF: 2 cyanocobalamin (vitamin B-12) 1,000 mcg capsule 1,000 mcg PO DAILY Qty: 30 RF: 5 folic acid 1 mg tablet 1 mg PO DAILY Qty: 30 RF: 5 triamcinolone acetonide 0.025 % cream 1 appln TOP TID PRN (Reason: breakouts) Qty: 15 RF: 0 metoprolol tartrate 50 mg Tablet 50 mg PO BID Qty: 180 RF: 0 diphenoxylate-atropine 2.5-0.025 mg tablet 1 tab PO QID PRN (Reason: Diarrhea) RF: 0 capecitabine 150 mg Tablet 1,600 mg PO BID RF: 0 ondansetron HCl [Zofran] 4 mg Tablet 4 mg PO Q6H PRN (Reason: Nausea) RF: 0 Discharge Problem: Abdominal pain Qualifiers: Abdominal location: unspecified location Qualified Code(s): R10.9 - Unspecified abdominal pain Diarrhea Qualifiers: Diarrhea type: unspecified type Qualified Code(s): R19.7 - Diarrhea, unspecified
[2019-07-30 16:00] LABS: INR 1.2 (0.9-1.1)
[2019-07-30 16:09] LABS: Anisocytosis Present; Dohle Bodies 1+; Polychromasia 1+
[2019-07-30 16:16] LABS: Alanine Aminotransferase 14 U/L (12-78); Albumin Globulin Ratio 0.7 (0.9-2); Albumin Level 2.5 gm/dl (3.4-5.0); Alkaline Phosphatase 60 U/L (45-117); Aspartate Aminotransferase 11 U/L (15-37); BUN Creatinine Ratio 12.5 (10-20); Bilirubin,Total 0.7 mg/dl (0.2-1); Blood Urea Nitrogen 12 mg/dl (7-18); Calcium 8.4 mg/dl (8.5-10.1); Carbon Dioxide 24 mmol/L (21-32); Chloride 99 mmol/L (98-107); Creatinine Clr Calc Pharmacy 50.6 ml/min; Est GFR (African American) 66.8; Est GFR (Non-African American) 57.6; Globulin 3.5 gm/dl (2.5-4.0); Glucose 127 mg/dl (70-99); Lipase 35 U/L (73-393); Potassium 2.4 mmol/L (3.5-5.1); Sodium 131 mmol/L (136-145); Troponin I < 0.015 ng/ml (0-0.045)
[2019-07-30] MEDS ORDERED: IOVERSOL 100ml IV PRN (16:29)
--- NOTE | 2019-07-30 16:44 | CT Scan Report ---
CT abd pelvis IV con only CT DOSE: 708.65 mGy.cm HISTORY: abd pain n/v TECHNIQUE: Multiaxial CT images of the abdomen and pelvis were performed following the use of intrave nous contrast. A dose lowering technique was utilized adhering to the principles of ALARA. COMPARISON STUDY: 05/04/2018 FINDINGS: Minimal atelectasis right base. Liver spleen and pancreas are unremarkable. Kidneys are neg ative for hydronephrosis. Pancreas is atrophic. Generalized fluid-filled small bowel as well as colon consistent with a generalized enteritis. Wall thickening with pericolonic infiltrative change of the low rectosigmoid. Components of this pote ntially are related to postoperative posterior fusion type change. The bulky masslike process of the low sigmoid appears remaining removed. There has been radiation treatment to this region. IMPRESSION: 1. Findings of a generalized nonspecific enteritis. 2. Wall thickening as well as mild pericolonic infiltrative change of the low rectosigmoid suggesting posttherapeutic/post radiation type proctitis. 3. No evidence for abscess collection or obstruction. ACT 112: Negative or not required by law. The above report was generated using voice recognition software. It may contain grammatical, syntax or spelling errors. Electronically signed by: Jose Frances M.D. 07/30/2019 4:42 PM
[2019-07-30] MEDS: POTASSIUM CHLORIDE / WTR 10 MEQ/100 ML PLCT IV SCH ×5 (16:46→21:29)
[2019-07-30 16:51] LABS: ALC (manual) 0.46 K/uL (1.2-3.4); ANC (manual) 7.44 K/uL (1.4-6.5); Lymphocytes # (manual) 0.46 K/uL (1.2-3.4); Monocytes # (manual) 1.29 K/uL (0.11-0.59); Neutrophils # (manual) 7.44 K/uL (1.4-6.5)
[2019-07-30] MEDS ORDERED: MAGNESIUM SULFATE / D5W 1 GM/100 ML BAG IV ONE (17:05)
--- NOTE | 2019-07-30 17:59 | History & Physical Report ---
Date of Service July 30, 2019 Assessment & Plan (1) Nausea and vomiting: - CT A/P showed generalized nonspecific enteritis, radiation type proctitis. - Possibly related to viral gastroenteritis vs. chemotherapy induced. - Clear liquid diet as tolerated. - Zofran 4 mg IV q6hr prn N/V. - NS + KCl 40 mEq at 80 cc/hr for IV fluid hydration. (2) Abdominal pain: -Presented with upper abdominal and periumbilical pain, with CT abd/pel with generalized enteritis and was reviewed with reading Radiologist--> no evidence on imaging of bowel ischemia or mesenteric artery stenosis -likely related to enteritis -pain control as needed with tylenol (3) Diarrhea: - C. diff and stool cultures are pending collection. - Possibly related to chemotherapy vs. acute infection. (4) Rectal carcinoma: - Recently diagnosed, started RT qMon-Sun 3 weeks ago, last treatment on 07/24/19. - Also on Capecitabine 1650 mg BID -- will hold med pending oncology consult. - Will consult oncology for input. (5) BRBPR (bright red blood per rectum): - Noted in ED by nursing staff -- possibly related to hemorrhoids vs. acute proctitis in setting of radiation therapy vs. GI bleed. - FOBT pending collection. - Start Protonix 40 mg IV BID. - Monitor CBC daily -- H/H is currently at baseline this morning. - Consider GI consult -- follows with [facility]. (6) COPD (chronic obstructive pulmonary disease): - Continue home Incruse Ellipta. - No acute exacerbation noted. (7) Atrial arrhythmia: - Recently admitted May-Jun -- started Metoprolol 50 mg BID. - Echo showed preserved EF, no significant valvular disease. (8) Pre-diabetes: - A1C in May 2019 was 5.9. - Encourage weight loss and exercise. - No indication for SSI coverage. (9) Chronic kidney disease, stage III (moderate): - Creatinine currently at baseline. - NS at 80 cc/hr. - Monitor BMP daily. (10) Fatty liver: - Encourage heart healthy diet. (11) GERD without esophagitis: - Hold home Protonix in setting of N/V. - Protonix IV BID as inpatient. (12) Hypertension: - Continue Metoprolol 50 mg BID. (13) Anemia: - Baseline hgb ~10-11. - Monitor CBC daily. (14) Hyponatremia: - Na level 131 -- likely hypovolemic hyponatremia. - NS at 80 cc/hr. (15) Hypokalemia: - K level 2.4 -- K 50 mEq IV, also added KCl 40 mEq to IV fluids. - Repeat level in the morning. -check magnesium (16) Pulmonary embolism: - H/o; will hold pharmacologic ppx due to BRBPR. (17) DVT prophylaxis: - SCDs; holding pharmacologic ppx. Dispo: Med/surg with tele. DNR/DNI -- confirmed by living will at bedside. History of Present Illness Chief Complaint: Nausea/vomiting/diarrhea Primary Care Provider: Yessenia Cameron DO Mrs. Duffy is an 79 year old female with past medical history of anxiety, CKD stage III, fatty liver, GERD, HTN, Pre-diabetes, PE, COPD who presented with nausea/vomiting/diarrhea. Patient was recently diagnosed with rectal cancer; she started daily RT qM-F 3 weeks ago; most recent treatment was last . She did not have RT on Sunday due to lack of transport. Patient developed nausea/vomiting/diarrhea 3 days ago. She has not been able to tolerate oral intake, fluids due to symptoms. She has upper abdominal pain. Patient has an upper chest rash -- she reports that rash developed after starting RT and was "bright red" last week. Rash has improved over the last few days due to lack of RT treatment. Denies URI symptoms, chest pain, SOB, LE edema, headache, dysuria or hematuria. ER course: CT A/P showed a generalized nonspecific enteritis, wall thickening of rectosigmoid c/w radiation type proctitis. K level was 2.4, Na 131 c/w hypovolemia, diarrhea. She received IV fluids, KCl and Mag replacement. Allergies Allergy/AdvReac Type Severity Reaction Status Date / Time codeine Allergy Intermediate RASH Verified 07/30/19 17:41 amoxicillin Allergy Unknown UNKNOWN Verified 07/30/19 17:41 azithromycin Allergy Unknown Unknown Verified 07/30/19 17:41 neomycin Allergy Unknown ? RASH Verified 07/30/19 17:41 Sulfa (Sulfonamide Allergy Unknown BODY RASH, Verified 07/30/19 17:41 Antibiotics) YEAST INFECTIONS simvastatin AdvReac Unknown gi Verified 07/30/19 17:41 bleed/distress Home Medications Home Medications Medication Instructions Recorded Confirmed Type pantoprazole 40 mg tablet,delayed 40 mg PO BID #60 tab 01/22/19 07/30/19 Rx release metoprolol tartrate 50 mg PO BID #180 tab NS 06/07/19 07/30/19 Rx umeclidinium 62.5 mcg/actuation 1 puffs INH DAILY #30 ea 06/11/19 07/30/19 Rx blister powder for inhalation cholecalciferol (vitamin D3) 50 2,000 units PO DAILY #30 tab 06/12/19 07/30/19 Rx mcg (2,000 unit) tablet duloxetine 30 mg capsule,delayed 30 mg PO DAILY #30 cap 06/12/19 07/30/19 Rx release triamcinolone acetonide 0.025 % 1 appln TOP TID PRN #15 gm 06/12/19 07/30/19 Rx topical cream cyanocobalamin (vitamin B-12) 1,000 mcg PO DAILY #30 cap 07/17/19 07/30/19 Rx 1,000 mcg capsule folic acid 1 mg tablet 1 mg PO DAILY #30 tab 07/17/19 07/30/19 Rx capecitabine 1,600 mg PO BID 07/30/19 07/30/19 History diphenoxylate-atropine 1 tab PO QID PRN 07/30/19 07/30/19 History ondansetron HCl [Zofran] 4 mg PO Q6H PRN 07/30/19 07/30/19 History Past Med/Surg History Medical History (Updated 07/30/19 @ 22:51 by Alaina Piña MD) Alcohol intoxication (Resolved) January 2019-alcohol 231 Anxiety (Chronic) Arthritis (Chronic) B12 deficiency Chronic kidney disease, stage III (moderate) (Chronic) Closed head injury (Resolved) COPD (chronic obstructive pulmonary disease) Eczema Fatty liver (Chronic) Folate deficiency GERD without esophagitis (Chronic) Hypertension (Chronic) Malignant neoplasm of rectum (Chronic) Pre-diabetes (Chronic) Pulmonary embolism (Resolved) Vitamin D deficiency (Chronic) Surgical History H/O total hysterectomy History of knee replacement R Hx of appendectomy (Resolved) Family History Sister Depression Father Kidney stones Lung cancer Seizures Sister Lung cancer Mother No known health problems Sister Vaginal cancer Other Family history non-contributory Denies family history of Colon cancer Ovarian cancer Prostate cancer Myocardial infarction Breast cancer Social History Preferred Language: Polish Communication Ability: Effective Visual Impairment: No Limitations Hearing Ability: Normal Sensor Operator Required: No Beliefs That Will Affect Care: None marital status: Current Living Situation: Family Current Living Situation Comment: lives with twin sister current occupational status: retired Other Information That Helps Us Care for You: No Feels Safe at Home: Yes Safety Concerns: Feels Safe At This Time Smoking Status: Never smoker Tobacco Type: cigarettes ; Age Started Using Tobacco: 33 ; Age Quit Using Tobacco: 64 ; Second Hand Exposure: No ; Hx Alcohol Use: Yes Alcohol type: wine Alcohol Intake Frequency: Daily Alcohol Intake Frequency Comment: 3 captain and coke per day Hx Substance Use: No Childhood Exposure to Second-Hand Smoke: Yes Diet Comment: regular caffeine: Yes (coffee) Dental Care, Regularly: Yes Physical Activity Frequency: 3-4 Times per Week Physical Activity Frequency Comment: LIMITED BY PHYSICAL CONDITION Seatbelt Use: always Sunscreen Use: Yes Review of Systems Review of Systems: All systems reviewed & are unremarkable except as noted in HPI & below Constitutional: + fatigue, + weakness and + anorexia; no fever and no chills Respiratory: no cough, no dyspnea and no dyspnea on exertion Cardiovascular: no chest pain, no palpitations and no edema Gastrointestinal: + abdominal pain, + nausea, + vomiting and + diarrhea/loose stools; no constipation Genitourinary: no dysuria, no difficulty urinating, no urinary frequency and no hematuria Musculoskeletal: no back pain and no joint pain Integumentary: + rash and + erythema Physical Exam Physical Exam: General: Resting comfortably HEENT: NC/AT; PERRLA with EOMI; [place] conjunctiva, MMM. No erythema of posterior pharynx Neck: Supple and nontender Cardiac: RRR Lungs: CTA bilaterally Abdomen: Bowel normoactive X 4; Tender to light palpation over upper abdomen. Rectal: Deferred Extremities: Warm. No edema present Neuro: No focal weakness Skin: Erythema of upper chest/neck, macular lesions. Results & Data Results & Data ([facility]) Vital Signs (Past 12 Hours) Vital Signs Temp Pulse Resp BP Pulse Ox 07/30/19 15:06 37.0 C 107 H 18 114/69 94 Laboratory Results 07/30/19 07/30/19 07/30/19 Range/Units 15:35 15:35 15:35 WBC 9.19 (4.8-10.8) K/uL RBC 3.59 L (4.2-5.4) M/uL Hgb 10.6 L (12.0-16.0) g/dL Hct 31.9 L (37-47) % MCV 88.9 (80-100) fL MCH 29.5 (25-34) pg MCHC 33.2 (32-36) g/dL RDW Std Deviation 47.0 H (36.4-46.3) fL RDW Coeff of [place] 19.9 H (11.5-14.5) % Plt Count 301 (130-400) K/uL MPV 9.0 (7.4-10.4) fL Absolute Nucleated RBC 0.04 H (0-0) K/uL Nucleated RBC % (auto) 0.4 % Neutrophils % (Manual) 81.0 % Lymphocytes % (Manual) 5.0 % Monocytes % (Manual) 14.0 % Neutrophils # (Manual) 7.44 H (1.4-6.5) K/uL Total Absolute Neuts 7.44 H (1.4-6.5) K/uL Lymphocytes # (Manual) 0.46 L (1.2-3.4) K/uL Total Abs Lymphocytes 0.46 L (1.2-3.4) K/uL Monocytes # (Manual) 1.29 H (0.11-0.59) K/uL Dohle Bodies 1+ Polychromasia 1+ Anisocytosis Present PT 13.0 H (9.0-12.0) Seconds INR 1.2 H (0.9-1.1) Sodium 131 L (136-145) mmol/L Potassium 2.4 L* (3.5-5.1) mmol/L Chloride 99 (98-107) mmol/L Carbon Dioxide 24 (21-32) mmol/L Anion Gap 8.0 (3-11) BUN 12 (7-18) mg/dl Creatinine 0.93 (0.6-1.2) mg/dl Est Cr Clr Drug Dosing 50.6 ml/min Est GFR ( Amer) 66.8 Est GFR (Non-Af Amer) 57.6 BUN/Creatinine Ratio 12.5 (10-20) Glucose 127 H (70-99) mg/dl Calcium 8.4 L (8.5-10.1) mg/dl Total Bilirubin 0.7 (0.2-1) mg/dl AST 11 L (15-37) U/L ALT 14 (12-78) U/L Alkaline Phosphatase 60 (45-117) U/L Troponin I < 0.015 (0-0.045) ng/ml Total Protein 6.0 L (6.4-8.2) gm/dl Albumin 2.5 L (3.4-5.0) gm/dl Globulin 3.5 (2.5-4.0) gm/dl Albumin/Globulin Ratio 0.7 L (0.9-2) Lipase 35 L (73-393) U/L Code Status & VTE Plan VTE Prophylaxis Plan VTE Prophylaxis will be ordered: Yes Supervising Physician Co-Signing Physician Notes EVA Supervision Note: I personally saw and examined the patient. I verified all abdul points and agree with EVA Horton with the following exceptions and/or additions: Pt presents with low appetite x 3 days followed by N/V/D and periumbilical abd pain today. All in the setting of ongoing XRT to the pelvis and chemotherapy with Xeloda for rectal adenocarcinoma. Had some BRBPR witnessed in ER by nursing staff but pt denies having bleeding at home. No hematemesis. Abd pain is waxing and waning and feels like cramping. No fevers/chills at home, no ches tpain or SOB, no cough or sore throat, no headache. No sick contacts with similar symptoms. History and ROS reviewed as above Vitals reviewed NAD, sitting up in bed in ER, AAOx3 Anicteric sclerae, mucus membranes dry RRR no mgr CTAB no wcr Abd +BS, soft, +TTP mostly LUQ but also in epigastric and periumbilical regions, no masses Ext no edema, 2+ DP pulses 79 yo female with rectal adenocarcinoma undergoing XRT and chemo, here with abd pain, N/V/D and some BRBPR, dehydration and hypokalemia. Given TTP on exam out of proportion to findings on CT, will check lactate. No evidence of mesenteric artery stenosis or ischemic bowel as per EVA Horton's d/w Radiology. Xeloda can rarely cause a necrotizing enterocolitis, but can also cause, N/V/D. BRBPR likely due to proctitis and/or tumor bleeding Hgb stable, afebrile, mild tachycardia, BP stable -replace lytes and repeat BMP later along with lactate -if abd pain worsens, consider repeat scans vs Gen Surgery consultation -continue IVF hydration -consulting Oncology to see if this is likely related to chemo PG Care Time/CCT Total # of Minutes Spent Total Time Spent with Patient: Total time spent is greater than 50% in coordination of care (as documented) at patient's floor/unit and/or counseling patient: Coding Level of Care Code 73349 OBS Care - Level 3 Diagnoses Nausea and vomiting R11.2 Abdominal pain R10.9 Abdominal location: unspecified location Diarrhea R19.7 Rectal carcinoma C20 BRBPR (bright red blood per rectum) K62.5 COPD (chronic obstructive pulmonary disease) J44.1 COPD type: COPD with acute exacerbation Atrial arrhythmia I49.8 Pre-diabetes R73.03 Chronic kidney disease, stage III (moderate) N18.3 Fatty liver K76.0 GERD without esophagitis K21.9 Hypertension I10 Anemia D64.9 Hyponatremia E87.1 Hypokalemia E87.6 Pulmonary embolism I26.99 DVT prophylaxis Z29.9 (1) COPD (chronic obstructive pulmonary disease) COPD type: COPD with acute exacerbation Qualified Code(s): J44.1 - Chronic obstructive pulmonary disease with (acute) exacerbation (2) Abdominal pain Abdominal location: unspecified location Qualified Code(s): R10.9 - Unspecified abdominal pain
[2019-07-30] MEDS ORDERED: ONDANSETRON INJ 2 MG/ML 2 ML VIAL IV PRN (18:42)
[2019-07-30] MEDS: POTASSIUM CHLORIDE 40 MEQ in SODIUM CHLORIDE 0.9% 1000ML 1,000 ML IV SCH (19:29)
[2019-07-30] MEDS: PANTOprazole 40 MG in SYRINGE 0 ML IV SCH (20:20)
[2019-07-30] MEDS: METOPROLOL TARTRATE 50 MG TAB PO SCH (20:21)
[2019-07-30 22:55] LABS: Appearance Urine Clear (Clear); Bacteria Urine Automated Negative (Negative); Bilirubin Urine Negative (Negative); Blood Urine Trace (Negative); Cast Urine Automated 0 /lpf (0-5); Color Urine Yellow; Glucose Urine UA Negative (Negative); Ketones Urine Trace (Negative); Leukocyte Esterase Urine Negative (Negative); Nitrite Urine Negative (Negative); Protein Urine 1+ (Negative); Specific Gravity Urine > 1.045 (1.000-1.030); Urobilinogen Urine Negative (Negative)
[2019-07-30] MEDS ORDERED: ACETAMINOPHEN 325 MG TAB PO PRN (22:55)
[2019-07-30 23:41] LABS: BUN Creatinine Ratio 12.9 (10-20); Calcium 7.6 mg/dl (8.5-10.1); Creatinine Clr Calc Pharmacy 58.9 ml/min; Est GFR (African American) 80.1; Est GFR (Non-African American) 69.1; Magnesium 1.4 mg/dl (1.8-2.4); Potassium 3.7 mmol/L (3.5-5.1)
[2019-07-31 06:34] LABS: Hematocrit (blood only) 26.1 % (37-47); Hemoglobin 8.9 g/dL (12.0-16.0); Mean Corpuscular Hemoglobin 29.9 pg (25-34); Mean Corpuscular Hgb Conc 34.1 g/dL (32-36); Mean Corpuscular Volume 87.6 fL (80-100); Platelet Count 266 K/uL (130-400); RDW Coefficient of Variation 20.3 % (11.5-14.5); RDW Standard Deviation 46.3 fL (36.4-46.3); Red Blood Count 2.98 M/uL (4.2-5.4); White Blood Count 6.95 K/uL (4.8-10.8)
[2019-07-31 06:58] LABS: Est GFR (African American) 89.5; Est GFR (Non-African American) 77.2; Potassium 3.3 mmol/L (3.5-5.1)
[2019-07-31 06:59] LABS: BUN Creatinine Ratio 14.4 (10-20); Calcium 7.6 mg/dl (8.5-10.1); Creatinine Clr Calc Pharmacy 65.3 ml/min; Magnesium 1.4 mg/dl (1.8-2.4)
[2019-07-31] MEDS: POTASSIUM CHLORIDE 40 MEQ in SODIUM CHLORIDE 0.9% 1000ML 1,000 ML IV SCH ×2 (07:39→19:38)
[2019-07-31] MEDS: DULOXETINE HCL 30 MG CAP PO SCH (07:42)
[2019-07-31] MEDS: UMECLIDINIUM BROMIDE 62.5MCG/BLISTER 7 PUFFS/INHALER INH SCH (07:43)
[2019-07-31] MEDS: PANTOprazole 40 MG in SYRINGE 0 ML IV SCH (07:44)
[2019-07-31] MEDS: METOPROLOL TARTRATE 50 MG TAB PO SCH (07:48)
[2019-07-31] MEDS: MAGNESIUM SULFATE / D5W 1 GM/100 ML BAG IV SCH ×2 (09:52→10:54)
[2019-07-31] MEDS: POTASSIUM CHLORIDE / WTR 10 MEQ/100 ML PLCT IV SCH ×4 (09:52→13:01)
--- NOTE | 2019-07-31 10:17 | Consultation Report ---
DATE OF CONSULTATION: 07/31/2019 REASON FOR CONSULTATION: Intractable nausea and vomiting in an 79-year-old female patient with adenocarcinoma of the rectum. HISTORY OF PRESENT ILLNESS: Jumana Duffy is a pleasant 79-year-old female patient well known to [facility], currently under my care with recent diagnosis of adenocarcinoma of the rectum. Apparently, Jumana showed up yesterday complaining of intractable nausea, vomiting and diarrhea. She was recently started on combined modality therapy utilizing Xeloda as the radiosensitizer. Jumana herself was not the best informant at the bedside this morning. She knew her name, knew the date and time, but clearly had trouble gathering her thoughts during this morning's encounter. In short, I had met her back in June after she was diagnosed with moderately differentiated adenocarcinoma of the rectum, stage indeterminate. The patient interestingly had been asymptomatic. I had actually seen this lady previously for iron deficiency a year ago, she estimated 2-3 years ago. Nonetheless, after experiencing bright red rectal bleeding, the patient underwent colonoscopy on 06/04/2019 revealing a near obstructing mass from the mid rectum extending to the distal sigmoid colon. Again, she was recently started on combined modality therapy, roughly about a week into treatment, and presented to [facility] with the symptoms described above. PAST MEDICAL HISTORY: Significant for rectal cancer, chronic kidney disease, closed head injury, iron-deficiency anemia, pulmonary embolism. PAST SURGICAL HISTORY: Right knee replacement, polypectomy, colonoscopy and hysterectomy. CURRENT MEDICATIONS: Included Protonix 40 mg p.o. b.i.d., metoprolol 50 mg p.o. b.i.d., umeclidinium inhaler 1 puff inhaled daily, cholecalciferol 2000 units p.o. daily, duloxetine 30 mg p.o. daily, triamcinolone use topically t.i.d. to affected areas, cyanocobalamin 1000 mcg p.o. daily, folic acid 1 p.o. daily, capecitabine 1600 mg p.o. b.i.d. Sunday through Sunday during radiation therapy only, Lomotil 1 tablet p.o. q.i.d. p.r.n., Zofran 4 mg p.o. q.6 hours p.r.n. ALLERGIES: CODEINE, AMOXICILLIN, AZITHROMYCIN, NEOMYCIN, SULFA DRUGS AND SIMVASTATIN. SOCIAL HISTORY: The patient lives with her twin sister. She is retired. She is a nonsmoker. She does drink Rum and Coke frequently. FAMILY HISTORY: Father of lung cancer, also had a seizure disorder. Mother of natural causes. Sister attributable to vaginal cancer. REVIEW OF SYSTEMS: Difficult to establish with Jumana. She was not a very good informant, but from what I could gather from clinical notes, her main complaint was abdominal pain with cramps, nausea, vomiting and diarrhea. PHYSICAL EXAMINATION: GENERAL: Very pleasant 79-year-old female in no acute distress. VITAL SIGNS: Temperature 36.7, pulse 79, respirations 20, blood pressure 98/58. SKIN: Warm, dry, noncyanotic without petechia, rash or ecchymosis. HEENT: Head is atraumatic, normocephalic. Eyes: PERRLA, EOMI. Sclerae nonicteric. No conjunctival injection. Nares are patent without rhinorrhea or discharge. Throat is clear. Tongue is midline. Mucous membranes are moist. NECK: Supple without JVD or thyromegaly. HEART: Regular rate and rhythm. No clicks, rubs, murmurs or gallops. LUNGS: Clear to auscultation bilaterally. ABDOMEN: Soft, nontender, nondistended, without palpable hepatosplenomegaly. EXTREMITIES: Musculoskeletal strength and pulses are equal in all 4 quadrants. No clubbing, cyanosis or edema. NEUROLOGIC: She is awake, alert and for the most part oriented, definitely short-term memory issue most notable. RADIOGRAPHIC DATA: CT scan of the abdomen and pelvis findings consistent with generalized nonspecific enteritis, wall thickening as well as mild pericolonic infiltrative change in the lower rectosigmoid suggesting post-therapeutic postradiation type proctitis. LABORATORY DATA: WBC count 6950, hemoglobin 8.9, platelet count 266,000. Sodium 133, potassium 3.3, chloride 106, carbon dioxide 21, BUN 11, creatinine 0.73, magnesium 1.4, albumin measured 2.5 yesterday. IMPRESSION: 1. Subacute-onset abdominal pain. 2. Nausea and vomiting/diarrhea. 3. Adenocarcinoma of the rectum. 4. Electrolyte dysfunction, particularly low potassium and magnesium. 5. Hypoalbuminemia. PLAN: Jumana is a pleasant 79-year-old female patient recently diagnosed with adenocarcinoma of the rectum. About a week or two ago began combined modality therapy utilizing Xeloda as a radiosensitizer. Obviously not tolerating well and once she recovers, we will proceed with 50% dose reduction as it pertains to Xeloda. I suspect the drug is probably causing a fair amount of her issues and less so radiation. Would continue supportive medical care as prescribed. She is not in need of transfusional support at this juncture. I would like to see her mentation improved a bit more before she is discharged home. Encourage p.o. intake, particularly protein as her albumin is faltering. Jumana will be seen in the office and most certainly by the radiation oncology people before resuming treatment. Thank you very much for allowing me to participate in her care. If you have any questions or concerns, feel free to contact me at any time.
--- NOTE | 2019-07-31 10:22 | Gastrointestinal Consultation ---
Date of Consultation July 31, 2019 Assessment & Plan (1) Diarrhea: Likely related to recent chemo tx with Xeloda/XR, less likely infectious source - Await stool cultures - Document stool output - Manage electrolytes - Continue supportive care Thank you for allowing us to participate in the care of this patient. Please call with any acute changes, questions or concerns. Please see addendum below with additional recommendation from my supervising physician. (2) BRBPR (bright red blood per rectum): - Pt is in the midst of tx for recently dx'd adenocarcinoma of the rectum; this may be in the setting of bleeding tumor vs radiation proctitis, less likely infectious diarrhea (such as c. diff). HGB this AM 8.9 (slightly lower than baseline) and pt is not requiring transfusion at this time. - Monitor GI output - Trend H&H, transfuse PRN - Would defer repeat endoscopy at this time (3) Malignant neoplasm of rectum: - Will defer management to oncology/radiation oncology/surgical service Supervising Physician Co-Signing Physician Notes I performed a history and physical examination of the patient today, including specifically on physical exam - soft abdomen. I have discussed the patient's management with the advanced practitioner. Please refer to the nurse practitioner's note for the documented findings and plan of care. 79 years old female patient recently diagnosed with rectal cancer, started on Radio/chemotherapy, presented with abdominal pain, nausea and diarrhea. Labs reviewed. Exam is soft abdomen. Likely enteritis related to recent cancer therapy. Her rectal bleeding is related to her Rectal cancer. Recommend: Supportive care. Stool Cx and C.diff. Continue f/u with colorectal surgery at [facility]. Endoscopy is hardly effective in malignancy related bleeding and Tx is to continue Radiotherapy to shrink the tumor, if persists then diverting colostomy. Recall GI if needed. History of Present Illness Reason for Consultation: rectal bleeding, rectal CA, diarrhea, abd pain Attending Physician: Alaina Piña MD History of Present Illness This is an 79 y/o female with PMHx dementia, CKD, JESÚS, PE not on AC, recently diagnosed rectal adenocarcinoma who presented to the ER yesterday after developing nausea, vomiting, abd pain, diarrhea. CTAP with IV contrast demonstrated nonspecific enteritis, no evidence for obstruction of abscess. ER staff noted BRBPR. HGB 10.6 -> 8.9 overnight (baseline is 10), hyponatremia/hypokalemia noted, with WBC, LFTs, renal fxn WNL. Overnight has remained hemodynamically stable and afebrile; tolerated some breakfast of clear liquids this AM. Regarding her rectal CA, it was recently diagnosed in May via colonoscopy and subsequent flex sig (found to be adenocarcinoma); through CT scans, no mets were found. She recently started XRT along with Xeloda several weeks ago. She saw [facility] last week and recommendations were to return after initial tx for repeat staging and consider permanent colostomy. Allergies Allergy/AdvReac Type Severity Reaction Status Date / Time codeine Allergy Intermediate RASH Verified 07/30/19 17:41 amoxicillin Allergy Unknown UNKNOWN Verified 07/30/19 17:41 azithromycin Allergy Unknown Unknown Verified 07/30/19 17:41 neomycin Allergy Unknown ? RASH Verified 07/30/19 17:41 Sulfa (Sulfonamide Allergy Unknown BODY RASH, Verified 07/30/19 17:41 Antibiotics) YEAST INFECTIONS simvastatin AdvReac Unknown gi Verified 07/30/19 17:41 bleed/distress Home Medications Home Medications Medication Instructions Recorded Confirmed Type pantoprazole 40 mg tablet,delayed 40 mg PO BID #60 tab 01/22/19 07/30/19 Rx release metoprolol tartrate 50 mg PO BID #180 tab NS 06/07/19 07/30/19 Rx umeclidinium 62.5 mcg/actuation 1 puffs INH DAILY #30 ea 06/11/19 07/30/19 Rx blister powder for inhalation cholecalciferol (vitamin D3) 50 2,000 units PO DAILY #30 tab 06/12/19 07/30/19 Rx mcg (2,000 unit) tablet duloxetine 30 mg capsule,delayed 30 mg PO DAILY #30 cap 06/12/19 07/30/19 Rx release triamcinolone acetonide 0.025 % 1 appln TOP TID PRN #15 gm 06/12/19 07/30/19 Rx topical cream cyanocobalamin (vitamin B-12) 1,000 mcg PO DAILY #30 cap 07/17/19 07/30/19 Rx 1,000 mcg capsule folic acid 1 mg tablet 1 mg PO DAILY #30 tab 07/17/19 07/30/19 Rx capecitabine 1,600 mg PO BID 07/30/19 07/30/19 History diphenoxylate-atropine 1 tab PO QID PRN 07/30/19 07/30/19 History ondansetron HCl [Zofran] 4 mg PO Q6H PRN 07/30/19 07/30/19 History Patient History Family History Sister Depression Father Kidney stones Lung cancer Seizures Sister Lung cancer Mother No known health problems Sister Vaginal cancer Other Family history non-contributory Denies family history of Colon cancer Ovarian cancer Prostate cancer Myocardial infarction Breast cancer Social History Preferred Language: Thai Communication Ability: Effective Visual Impairment: No Limitations Hearing Ability: Normal Auto Transmission Specialist Required: No Beliefs That Will Affect Care: None marital status: Current Living Situation: Family Current Living Situation Comment: lives with twin sister current occupational status: retired Other Information That Helps Us Care for You: No Feels Safe at Home: Yes Safety Concerns: Feels Safe At This Time Smoking Status: Never smoker Tobacco Type: cigarettes ; Age Started Using Tobacco: 33 ; Age Quit Using Tobacco: 64 ; Second Hand Exposure: No ; Hx Alcohol Use: Yes Alcohol type: wine Alcohol Intake Frequency: Daily Alcohol Intake Frequency Comment: 3 captain and coke per day Hx Substance Use: No Childhood Exposure to Second-Hand Smoke: Yes Diet Comment: regular caffeine: Yes (coffee) Dental Care, Regularly: Yes Physical Activity Frequency: 3-4 Times per Week Physical Activity Frequency Comment: LIMITED BY PHYSICAL CONDITION Seatbelt Use: always Sunscreen Use: Yes Review of Systems Constitutional: no fever, no chills, no fatigue and no weight loss Eyes: no eye pain and no worsening vision Ear, Nose, Mouth, Throat: no tinnitus, no dizziness, no nasal discharge and no epistaxis Respiratory: no cough, no dyspnea, no dyspnea on exertion and no wheezing Cardiovascular: no chest pain, no orthopnea, no palpitations and no edema Gastrointestinal: as per Subjective / HPI Genitourinary: no dysuria, no urinary frequency, no urinary incontinence and no hematuria Musculoskeletal: no stiffness and no myalgia Neurologic: no localized weakness, no paralysis, no tremor(s) and no headache(s) Endocrine: no polydipsia and no polyuria Hematologic / Lymphatic: no easy bleeding and no night sweats Physical Exam Physical Exam: Please see attending addenum for exam results Constitutional: + well hydrated, cooperative and comfortable Eyes: PERRL, conjunctivae normal, anicteric sclerae ENMT: external ear and nose normal, oropharynx normal Neck: normal visual inspection and trachea midline Respiratory: normal respiratory effort, lungs clear to auscultation Auscultation: no wheezes Cardiovascular: RRR, no murmur, no edema Gastrointestinal (Abdomen): normal bowel sounds, soft, nontender, no hepatosplenomegaly Musculoskeletal: no cyanosis or clubbing, extremities motor strength 5/5 Skin: no rashes, warm and dry Neurologic: awake; no focal motor deficits Motor/Sensory: no tremor Results & Data ([facility]) Vital Signs (Past 12 Hours) Vital Signs Temp Pulse Pulse Resp BP Pulse Ox 07/31/19 07:43 36.7 C 79 20 98/58 L 95 07/31/19 07:35 80 108/67 07/31/19 07:29 83 07/31/19 03:32 37 C 87 18 93/53 L 94 07/31/19 00:37 97 H 07/31/19 00:30 37.5 C 87 18 109/66 95 Laboratory Results 07/31/19 07/31/19 07/31/19 Range/Units 06:27 06:25 06:25 WBC 6.95 (4.8-10.8) K/uL RBC 2.98 L (4.2-5.4) M/uL Hgb 8.9 L (12.0-16.0) g/dL Hct 26.1 L (37-47) % MCV 87.6 (80-100) fL MCH 29.9 (25-34) pg MCHC 34.1 (32-36) g/dL RDW Std Deviation 46.3 (36.4-46.3) fL RDW Coeff of Maico 20.3 H (11.5-14.5) % Plt Count 266 (130-400) K/uL MPV 9.0 (7.4-10.4) fL Absolute Nucleated RBC (0-0) K/uL Nucleated RBC % (auto) % Neutrophils % (Manual) % Lymphocytes % (Manual) % Monocytes % (Manual) % Neutrophils # (Manual) (1.4-6.5) K/uL Total Absolute Neuts (1.4-6.5) K/uL Lymphocytes # (Manual) (1.2-3.4) K/uL Total Abs Lymphocytes (1.2-3.4) K/uL Monocytes # (Manual) (0.11-0.59) K/uL Dohle Bodies Polychromasia Anisocytosis PT (9.0-12.0) Seconds INR (0.9-1.1) Sodium 133 L (136-145) mmol/L Potassium 3.3 L (3.5-5.1) mmol/L Chloride 106 (98-107) mmol/L Carbon Dioxide 21 (21-32) mmol/L Anion Gap 6.0 (3-11) BUN 11 (7-18) mg/dl Creatinine 0.73 (0.6-1.2) mg/dl Est Cr Clr Drug Dosing 65.3 ml/min Est GFR ( Amer) 89.5 Est GFR (Non-Af Amer) 77.2 BUN/Creatinine Ratio 14.4 (10-20) Glucose 109 H (70-99) mg/dl Lactate 0.7 (0.4-2.0) mmol/L Calcium 7.6 L (8.5-10.1) mg/dl Magnesium 1.4 L (1.8-2.4) mg/dl Total Bilirubin (0.2-1) mg/dl AST (15-37) U/L ALT (12-78) U/L Alkaline Phosphatase (45-117) U/L Troponin I (0-0.045) ng/ml Total Protein (6.4-8.2) gm/dl Albumin (3.4-5.0) gm/dl Globulin (2.5-4.0) gm/dl Albumin/Globulin Ratio (0.9-2) Lipase (73-393) U/L Urine Color Urine Appearance (Clear) Urine pH (4.5-7.5) Ur Specific Gray (1.000-1.030) Urine Protein (Negative) Urine Glucose (UA) (Negative) Urine Ketones (Negative) Urine Blood (Negative) Urine Nitrite (Negative) Urine Bilirubin (Negative) Urine Urobilinogen (Negative) Ur Leukocyte Esterase (Negative) Urine WBC (Auto) (0-5) /hpf Urine RBC (Auto) (0-4) /hpf U Hyaline Cast (Auto) (0-5) /lpf U Epithel Cells (Auto) (0-5) /lpf Urine Bacteria (Auto) (Negative) 07/30/19 07/30/19 07/30/19 Range/Units 23:06 23:06 22:49 WBC (4.8-10.8) K/uL RBC (4.2-5.4) M/uL Hgb (12.0-16.0) g/dL Hct (37-47) % MCV (80-100) fL MCH (25-34) pg MCHC (32-36) g/dL RDW Std Deviation (36.4-46.3) fL RDW Coeff of Maico (11.5-14.5) % Plt Count (130-400) K/uL MPV (7.4-10.4) fL Absolute Nucleated RBC (0-0) K/uL Nucleated RBC % (auto) % Neutrophils % (Manual) % Lymphocytes % (Manual) % Monocytes % (Manual) % Neutrophils # (Manual) (1.4-6.5) K/uL Total Absolute Neuts (1.4-6.5) K/uL Lymphocytes # (Manual) (1.2-3.4) K/uL Total Abs Lymphocytes (1.2-3.4) K/uL Monocytes # (Manual) (0.11-0.59) K/uL Dohle Bodies Polychromasia Anisocytosis PT (9.0-12.0) Seconds INR (0.9-1.1) Sodium 133 L (136-145) mmol/L Potassium 3.7 D (3.5-5.1) mmol/L Chloride 105 (98-107) mmol/L Carbon Dioxide 19 L (21-32) mmol/L Anion Gap 9.0 (3-11) BUN 10 (7-18) mg/dl Creatinine 0.80 (0.6-1.2) mg/dl Est Cr Clr Drug Dosing 58.9 ml/min Est GFR ( Amer) 80.1 Est GFR (Non-Af Amer) 69.1 BUN/Creatinine Ratio 12.9 (10-20) Glucose 112 H (70-99) mg/dl Lactate 1.4 (0.4-2.0) mmol/L Calcium 7.6 L (8.5-10.1) mg/dl Magnesium 1.4 L (1.8-2.4) mg/dl Total Bilirubin (0.2-1) mg/dl AST (15-37) U/L ALT (12-78) U/L Alkaline Phosphatase (45-117) U/L Troponin I (0-0.045) ng/ml Total Protein (6.4-8.2) gm/dl Albumin (3.4-5.0) gm/dl Globulin (2.5-4.0) gm/dl Albumin/Globulin Ratio (0.9-2) Lipase (73-393) U/L Urine Color Yellow Urine Appearance Clear (Clear) Urine pH 6.0 (4.5-7.5) Ur Specific Gray > 1.045 H (1.000-1.030) Urine Protein 1+ H (Negative) Urine Glucose (UA) Negative (Negative) Urine Ketones Trace H (Negative) Urine Blood Trace H (Negative) Urine Nitrite Negative (Negative) Urine Bilirubin Negative (Negative) Urine Urobilinogen Negative (Negative) Ur Leukocyte Esterase Negative (Negative) Urine WBC (Auto) 1-5 (0-5) /hpf Urine RBC (Auto) 5-10 H (0-4) /hpf U Hyaline Cast (Auto) 0 (0-5) /lpf U Epithel Cells (Auto) 10-20 H (0-5) /lpf Urine Bacteria (Auto) Negative (Negative) 07/30/19 07/30/19 07/30/19 Range/Units 15:35 15:35 15:35 WBC 9.19 (4.8-10.8) K/uL RBC 3.59 L (4.2-5.4) M/uL Hgb 10.6 L (12.0-16.0) g/dL Hct 31.9 L (37-47) % MCV 88.9 (80-100) fL MCH 29.5 (25-34) pg MCHC 33.2 (32-36) g/dL RDW Std Deviation 47.0 H (36.4-46.3) fL RDW Coeff of Maico 19.9 H (11.5-14.5) % Plt Count 301 (130-400) K/uL MPV 9.0 (7.4-10.4) fL Absolute Nucleated RBC 0.04 H (0-0) K/uL Nucleated RBC % (auto) 0.4 % Neutrophils % (Manual) 81.0 % Lymphocytes % (Manual) 5.0 % Monocytes % (Manual) 14.0 % Neutrophils # (Manual) 7.44 H (1.4-6.5) K/uL Total Absolute Neuts 7.44 H (1.4-6.5) K/uL Lymphocytes # (Manual) 0.46 L (1.2-3.4) K/uL Total Abs Lymphocytes 0.46 L (1.2-3.4) K/uL Monocytes # (Manual) 1.29 H (0.11-0.59) K/uL Dohle Bodies 1+ Polychromasia 1+ Anisocytosis Present PT 13.0 H (9.0-12.0) Seconds INR 1.2 H (0.9-1.1) Sodium 131 L (136-145) mmol/L Potassium 2.4 L* (3.5-5.1) mmol/L Chloride 99 (98-107) mmol/L Carbon Dioxide 24 (21-32) mmol/L Anion Gap 8.0 (3-11) BUN 12 (7-18) mg/dl Creatinine 0.93 (0.6-1.2) mg/dl Est Cr Clr Drug Dosing 50.6 ml/min Est GFR ( Amer) 66.8 Est GFR (Non-Af Amer) 57.6 BUN/Creatinine Ratio 12.5 (10-20) Glucose 127 H (70-99) mg/dl Lactate (0.4-2.0) mmol/L Calcium 8.4 L (8.5-10.1) mg/dl Magnesium (1.8-2.4) mg/dl Total Bilirubin 0.7 (0.2-1) mg/dl AST 11 L (15-37) U/L ALT 14 (12-78) U/L Alkaline Phosphatase 60 (45-117) U/L Troponin I < 0.015 (0-0.045) ng/ml Total Protein 6.0 L (6.4-8.2) gm/dl Albumin 2.5 L (3.4-5.0) gm/dl Globulin 3.5 (2.5-4.0) gm/dl Albumin/Globulin Ratio 0.7 L (0.9-2) Lipase 35 L (73-393) U/L Urine Color Urine Appearance (Clear) Urine pH (4.5-7.5) Ur Specific Gray (1.000-1.030) Urine Protein (Negative) Urine Glucose (UA) (Negative) Urine Ketones (Negative) Urine Blood (Negative) Urine Nitrite (Negative) Urine Bilirubin (Negative) Urine Urobilinogen (Negative) Ur Leukocyte Esterase (Negative) Urine WBC (Auto) (0-5) /hpf Urine RBC (Auto) (0-4) /hpf U Hyaline Cast (Auto) (0-5) /lpf U Epithel Cells (Auto) (0-5) /lpf Urine Bacteria (Auto) (Negative) Diagnostic Findings CTAP with IV contrast 07/30/19: FINDINGS: Minimal atelectasis right base. Liver spleen and pancreas are unremarkable. Kidneys are negative for hydronephrosis. Pancreas is atrophic. Generalized fluid-filled small bowel as well as colon consistent with a generalized enteritis. Wall thickening with pericolonic infiltrative change of the low rectosigmoid. Components of this potentially are related to postoperative posterior fusion type change. The bulky masslike process of the low sigmoid appears remaining removed. There has been radiation treatment to this region. IMPRESSION: 1. Findings of a generalized nonspecific enteritis. 2. Wall thickening as well as mild pericolonic infiltrative change of the low rectosigmoid suggesting posttherapeutic/post radiation type proctitis. 3. No evidence for abscess collection or obstruction. (1) Diarrhea Diarrhea type: unspecified type Qualified Code(s): R19.7 - Diarrhea, unspecified
[2019-07-31 12:23] LABS: Hematocrit (blood only) 26.6 % (37-47); Mean Corpuscular Hemoglobin 29.7 pg (25-34); Mean Corpuscular Hgb Conc 33.8 g/dL (32-36); Mean Corpuscular Volume 87.8 fL (80-100); Mean Platelet Volume 9.2 fL (7.4-10.4); Platelet Count 289 K/uL (130-400); RDW Coefficient of Variation 20.4 % (11.5-14.5); RDW Standard Deviation 46.6 fL (36.4-46.3); Red Blood Count 3.03 M/uL (4.2-5.4); White Blood Count 7.43 K/uL (4.8-10.8)
[2019-07-31 12:39] LABS: BUN Creatinine Ratio 12.9 (10-20); Calcium 7.9 mg/dl (8.5-10.1); Creatinine Clr Calc Pharmacy 58.8 ml/min; Est GFR (African American) 78.9; Est GFR (Non-African American) 68.1; Magnesium 2.4 mg/dl (1.8-2.4); Potassium 3.7 mmol/L (3.5-5.1)
--- NOTE | 2019-07-31 16:04 | Hospitalist Progress Note ---
Date of Service July 31, 2019 Assessment & Plan (1) Nausea and vomiting: - CT A/P showed generalized nonspecific enteritis, radiation type proctitis. - Possibly related to viral gastroenteritis vs. chemotherapy induced. Improving today but still with residual nausea and loose stools Electrolytes improving with replacement - continue clears diet , possibly advance tomorrow if improving nausea - continue Zofran 4 mg IV q6hr prn N/V. - continue NS + KCl 40 mEq and reduce to 70ml/hr for IV fluid hydration. (2) Abdominal pain: -Presented with upper abdominal and periumbilical pain, with CT abd/pel with generalized enteritis and was reviewed with reading Radiologist--> no evidence on imaging of bowel ischemia or mesenteric artery stenosis Lactate negative -likely related to enteritis -pain control as needed with tylenol -improving now (3) Diarrhea: - C. diff and stool cultures are pending collection. - Possibly related to chemotherapy vs. acute infection. -with some BRBPR GI consult appreciated--> supportive care, no scope indicated (4) Rectal carcinoma: - Recently diagnosed, started RT qMon-Sun 3 weeks ago, last treatment on 07/24/19. - Also on Capecitabine 1650 mg BID -- will hold med pending oncology consult. - Appreciate oncology consult--> continue supportive care, no transfusion needed -with rectal bleeding, GI consult recommends continuing XRT -consult XRT to see if can get treatment while inpatient tomorrow (5) BRBPR (bright red blood per rectum): - Noted in ED by nursing staff -- possibly related to hemorrhoids vs. acute proctitis in setting of radiation therapy vs. GI bleed. Apprecaite GI consult-continue XRT and no scope needed -hgb drop to 8.9 today no further bleeding -consult Rad Onc as above - Monitor CBC daily - dc IV PPI as is lower GI bleed nad convert to usual home po PPI (6) COPD (chronic obstructive pulmonary disease): - Continue home Incruse Ellipta. - No acute exacerbation noted. (7) Atrial arrhythmia: - Recently admitted May-Jun -- started Metoprolol 50 mg BID. - Echo showed preserved EF, no significant valvular disease. With low BPs here--> lower metoprolol to 25mg po bid (8) Pre-diabetes: - A1C in May 2019 was 5.9. - Encourage weight loss and exercise. - No indication for SSI coverage. (9) Chronic kidney disease, stage III (moderate): - Creatinine currently at baseline. - Monitor BMP daily. (10) Fatty liver: - Encourage heart healthy diet. (11) GERD without esophagitis: -restart home po PPI bid (12) Hypertension: -with lower BPs here due to dehydration -lower Metoprolol to 25 mg BID. (13) Anemia: - Baseline hgb ~10-11. Acute blood loss anemia nad some hemodilution down to 8.9 from 10.6 from rectal bleeding and ?chemo - Monitor CBC daily. (14) Hyponatremia: - Na level 131 -- likely hypovolemic hyponatremia on admission -increased to 133 with IVFs - continue NS (15) Hypokalemia: - K level 2.4 on admission and now normalized with further replacement today -follow BMP (16) Pulmonary embolism: - H/o; will hold pharmacologic ppx due to BRBPR. (17) Hypomagnesemia: Secondary to G losses Mag 1.4 today-replaced with IV mag and improved on repeat testing -follow Mag level in AM (18) DVT prophylaxis: - SCDs; holding pharmacologic ppx. Dispo: continue dstay on Med/surg with tele. DNR/DNI -- confirmed by living will at bedside. Admission and Anticipated Discharge Date Admission Date: July 30, 2019 Anticipated date of discharge: 08/01/19 Subjective Pt feeling a little better today. Less abd pain, only one large loose watery stool, no blood. No further vomiting but still feels "queasy." Was able to tolerate some clear liquids today po. Denies chest pain or SOB. Tele with NSR, PACs, rates 70-80s Discussed care with daughter on phone who reports pt is missing XRT currently this week Review of Systems Review of Systems: All systems reviewed & are unremarkable except as noted in HPI & below Physical Exam Constitutional: WD/WN, vitals as above + obese Eyes: + anicteric sclerae ENMT: external ear and nose normal, oropharynx normal Neck: trachea midline, no thyromegaly Respiratory: normal respiratory effort, lungs clear to auscultation Cardiovascular: RRR, no murmur, no edema Chest (Breasts): Chest: normal inspection of chest Gastrointestinal (Abdomen): Inspection/Auscultation: abdomen normal to inspection and normal bowel sounds Percussion/Palpation: + abdomen tender (mild diffuse +TTP but no guarding) and abdomen soft; no guarding and abdomen not rigid Musculoskeletal: Extremities: extremities normal to inspection; no cyanosis and no clubbing Skin: no rashes, warm and dry Neurologic: moves all extremities and awake; no focal motor deficits Psychiatric: Orientation: alert, oriented to person, oriented to place, oriented to time and cooperative Affect: euthymic affect Lymphatic: no lymphedema Results & Data Results & Data ([facility]) Vital Signs (Past 12 Hours) Vital Signs Temp Pulse Pulse Resp BP Pulse Ox 07/31/19 15:38 36.5 C 79 18 96/53 L 96 07/31/19 11:26 36.6 C 75 18 97/55 L 95 07/31/19 07:43 36.7 C 79 20 98/58 L 95 07/31/19 07:35 80 108/67 07/31/19 07:29 83 Laboratory Results 07/31/19 07/31/19 07/31/19 Range/Units 12:07 12:07 06:27 WBC 7.43 (4.8-10.8) K/uL RBC 3.03 L (4.2-5.4) M/uL Hgb 9.0 L (12.0-16.0) g/dL Hct 26.6 L (37-47) % MCV 87.8 (80-100) fL MCH 29.7 (25-34) pg MCHC 33.8 (32-36) g/dL RDW Std Deviation 46.6 H (36.4-46.3) fL RDW Coeff of [place] 20.4 H (11.5-14.5) % Plt Count 289 (130-400) K/uL MPV 9.2 (7.4-10.4) fL Sodium 131 L (136-145) mmol/L Potassium 3.7 (3.5-5.1) mmol/L Chloride 106 (98-107) mmol/L Carbon Dioxide 22 (21-32) mmol/L Anion Gap 3.0 (3-11) BUN 10 (7-18) mg/dl Creatinine 0.81 (0.6-1.2) mg/dl Est Cr Clr Drug Dosing 58.8 ml/min Est GFR ( Amer) 78.9 Est GFR (Non-Af Amer) 68.1 BUN/Creatinine Ratio 12.9 (10-20) Glucose 121 H (70-99) mg/dl Lactate 0.7 (0.4-2.0) mmol/L Calcium 7.9 L (8.5-10.1) mg/dl Magnesium 2.4 (1.8-2.4) mg/dl Urine Color Urine Appearance (Clear) Urine pH (4.5-7.5) Ur Specific [place] (1.000-1.030) Urine Protein (Negative) Urine Glucose (UA) (Negative) Urine Ketones (Negative) Urine Blood (Negative) Urine Nitrite (Negative) Urine Bilirubin (Negative) Urine Urobilinogen (Negative) Ur Leukocyte Esterase (Negative) Urine WBC (Auto) (0-5) /hpf Urine RBC (Auto) (0-4) /hpf U Hyaline Cast (Auto) (0-5) /lpf U Epithel Cells (Auto) (0-5) /lpf Urine Bacteria (Auto) (Negative) 07/31/19 07/31/19 07/30/19 Range/Units 06:25 06:25 23:06 WBC 6.95 (4.8-10.8) K/uL RBC 2.98 L (4.2-5.4) M/uL Hgb 8.9 L (12.0-16.0) g/dL Hct 26.1 L (37-47) % MCV 87.6 (80-100) fL MCH 29.9 (25-34) pg MCHC 34.1 (32-36) g/dL RDW Std Deviation 46.3 (36.4-46.3) fL RDW Coeff of [place] 20.3 H (11.5-14.5) % Plt Count 266 (130-400) K/uL MPV 9.0 (7.4-10.4) fL Sodium 133 L (136-145) mmol/L Potassium 3.3 L (3.5-5.1) mmol/L Chloride 106 (98-107) mmol/L Carbon Dioxide 21 (21-32) mmol/L Anion Gap 6.0 (3-11) BUN 11 (7-18) mg/dl Creatinine 0.73 (0.6-1.2) mg/dl Est Cr Clr Drug Dosing 65.3 ml/min Est GFR ( Amer) 89.5 Est GFR (Non-Af Amer) 77.2 BUN/Creatinine Ratio 14.4 (10-20) Glucose 109 H (70-99) mg/dl Lactate 1.4 (0.4-2.0) mmol/L Calcium 7.6 L (8.5-10.1) mg/dl Magnesium 1.4 L (1.8-2.4) mg/dl Urine Color Urine Appearance (Clear) Urine pH (4.5-7.5) Ur Specific [place] (1.000-1.030) Urine Protein (Negative) Urine Glucose (UA) (Negative) Urine Ketones (Negative) Urine Blood (Negative) Urine Nitrite (Negative) Urine Bilirubin (Negative) Urine Urobilinogen (Negative) Ur Leukocyte Esterase (Negative) Urine WBC (Auto) (0-5) /hpf Urine RBC (Auto) (0-4) /hpf U Hyaline Cast (Auto) (0-5) /lpf U Epithel Cells (Auto) (0-5) /lpf Urine Bacteria (Auto) (Negative) 07/30/19 07/30/19 Range/Units 23:06 22:49 WBC (4.8-10.8) K/uL RBC (4.2-5.4) M/uL Hgb (12.0-16.0) g/dL Hct (37-47) % MCV (80-100) fL MCH (25-34) pg MCHC (32-36) g/dL RDW Std Deviation (36.4-46.3) fL RDW Coeff of [place] (11.5-14.5) % Plt Count (130-400) K/uL MPV (7.4-10.4) fL Sodium 133 L (136-145) mmol/L Potassium 3.7 D (3.5-5.1) mmol/L Chloride 105 (98-107) mmol/L Carbon Dioxide 19 L (21-32) mmol/L Anion Gap 9.0 (3-11) BUN 10 (7-18) mg/dl Creatinine 0.80 (0.6-1.2) mg/dl Est Cr Clr Drug Dosing 58.9 ml/min Est GFR ( Amer) 80.1 Est GFR (Non-Af Amer) 69.1 BUN/Creatinine Ratio 12.9 (10-20) Glucose 112 H (70-99) mg/dl Lactate (0.4-2.0) mmol/L Calcium 7.6 L (8.5-10.1) mg/dl Magnesium 1.4 L (1.8-2.4) mg/dl Urine Color Yellow Urine Appearance Clear (Clear) Urine pH 6.0 (4.5-7.5) Ur Specific [place] > 1.045 H (1.000-1.030) Urine Protein 1+ H (Negative) Urine Glucose (UA) Negative (Negative) Urine Ketones Trace H (Negative) Urine Blood Trace H (Negative) Urine Nitrite Negative (Negative) Urine Bilirubin Negative (Negative) Urine Urobilinogen Negative (Negative) Ur Leukocyte Esterase Negative (Negative) Urine WBC (Auto) 1-5 (0-5) /hpf Urine RBC (Auto) 5-10 H (0-4) /hpf U Hyaline Cast (Auto) 0 (0-5) /lpf U Epithel Cells (Auto) 10-20 H (0-5) /lpf Urine Bacteria (Auto) Negative (Negative) PG Care Time/CCT Total # of Minutes Spent Total Time Spent with Patient: Total time spent is greater than 50% in coordination of care (as documented) at patient's floor/unit and/or counseling patient: Coding Level of Care Code 45033 Subseq Hosp Care Lvl 3 Diagnoses Nausea and vomiting R11.2 Abdominal pain R10.9 Abdominal location: unspecified location Diarrhea R19.7 Rectal carcinoma C20 BRBPR (bright red blood per rectum) K62.5 COPD (chronic obstructive pulmonary disease) J44.1 COPD type: COPD with acute exacerbation Atrial arrhythmia I49.8 Pre-diabetes R73.03 Chronic kidney disease, stage III (moderate) N18.3 Fatty liver K76.0 GERD without esophagitis K21.9 Hypertension I10 Anemia D64.9 Hyponatremia E87.1 Hypokalemia E87.6 Pulmonary embolism I26.99 Hypomagnesemia E83.42 DVT prophylaxis Z29.9 (1) COPD (chronic obstructive pulmonary disease) COPD type: COPD with acute exacerbation Qualified Code(s): J44.1 - Chronic obstructive pulmonary disease with (acute) exacerbation (2) Abdominal pain Abdominal location: unspecified location Qualified Code(s): R10.9 - Unspecified abdominal pain
[2019-07-31] MEDS ORDERED: HYDROCORTISONE ACETATE 25 MG SUPP PR ONE (19:00)
[2019-07-31] MEDS: PANTOprazole 40 MG TAB PO SCH (19:39)
[2019-07-31] MEDS: METOPROLOL TARTRATE 25 MG TAB PO SCH (20:08)
[2019-07-31] MEDS ORDERED: PANTOprazole 40 MG TAB PO SCH (21:00)
[2019-08-01 05:30] LABS: Hematocrit (blood only) 26.9 % (37-47); Hemoglobin 8.9 g/dL (12.0-16.0); Mean Corpuscular Hemoglobin 29.4 pg (25-34); Mean Corpuscular Hgb Conc 33.1 g/dL (32-36); Mean Corpuscular Volume 88.8 fL (80-100); Mean Platelet Volume 9.3 fL (7.4-10.4); Platelet Count 357 K/uL (130-400); RDW Coefficient of Variation 20.5 % (11.5-14.5); RDW Standard Deviation 47.8 fL (36.4-46.3); Red Blood Count 3.03 M/uL (4.2-5.4); White Blood Count 8.57 K/uL (4.8-10.8)
[2019-08-01 05:56] LABS: BUN Creatinine Ratio 10.3 (10-20); Calcium 7.9 mg/dl (8.5-10.1); Creatinine Clr Calc Pharmacy 59.6 ml/min; Est GFR (African American) 80.1; Est GFR (Non-African American) 69.1; Magnesium 1.9 mg/dl (1.8-2.4); Potassium 3.9 mmol/L (3.5-5.1)
[2019-08-01 06:03] LABS: ALC (manual) 0.37 K/uL (1.2-3.4); ANC (manual) 6.49 K/uL (1.4-6.5); Eosinophils # (manual) 0.52 K/uL (0-0.5); Eosinophils % (manual) 6.1 %; Lymphocytes # (manual) 0.37 K/uL (1.2-3.4); Lymphocytes % (manual) 4.3 %; Metamyelocytes # (manual) 0.22 K/uL (0-0); Metamyelocytes % (manual) 2.6 %; Monocytes # (manual) 0.82 K/uL (0.11-0.59); Monocytes % (manual) 9.6 %; Myelocytes # (manual) 0.15 K/uL (0-0); Myelocytes % (manual) 1.7 %; Neutrophils # (manual) 6.49 K/uL (1.4-6.5); Neutrophils % (manual) 75.7 %
[2019-08-01] MEDS: DULOXETINE HCL 30 MG CAP PO SCH (09:07)
[2019-08-01] MEDS: PANTOprazole 40 MG TAB PO SCH (09:07)
[2019-08-01] MEDS: UMECLIDINIUM BROMIDE 62.5MCG/BLISTER 7 PUFFS/INHALER INH SCH (09:07)
[2019-08-01] MEDS: POTASSIUM CHLORIDE 40 MEQ in SODIUM CHLORIDE 0.9% 1000ML 1,000 ML IV SCH (09:08)
--- NOTE | 2019-08-01 09:09 | Progress Notes ---
DATE: 08/01/2019 DIAGNOSES: 1. Subacute onset abdominal pain. 2. Nausea/vomiting/diarrhea. 3. Adenocarcinoma of the rectum. 4. Electrolyte dysfunction, particularly hypokalemia and hypomagnesemia. 5. Hypoalbuminemia. SUBJECTIVE: Jumana was seen and examined at bedside. Her mentation was a bit better today, but still has gaps in her memory. She told me today she was not sure why she was even in the hospital. I will need to contact her daughter for specifics and discuss how we proceed with radiosensitization moving forward. She offers no complaints of pain. Her diarrhea has also slowed as per the managing hospitalist. OBJECTIVE: GENERAL: A very pleasant 79-year-old female in no acute distress. VITAL SIGNS: Temperature 36.6, pulse 101, respiratory rate 20, blood pressure 117/67. SKIN: Without rash or lesion. HEENT: Oral mucosa without erythema or ulceration. HEART: Regular rate and rhythm. LUNGS: Clear to auscultation bilaterally. ABDOMEN: Soft, nontender, nondistended. EXTREMITIES: No clubbing, cyanosis or edema. NEUROLOGIC: Grossly intact. LABORATORY DATA: WBC count 8570, hemoglobin 8.9, platelet count 357,000. Sodium 134, potassium 3.9, chloride 109, carbon dioxide 23, BUN 8, creatinine 0.8. IMPRESSION: 1. Intractable abdominal pain. 2. Nausea/vomiting/diarrhea. 3. Adenocarcinoma of the rectum. 4. Electrolyte dysfunction. 5. Hypoalbuminemia. PLAN: It was my pleasure to visit with Jumana today at bedside. Again, her mentation was a bit better but continues to have memory issues. Clearly does not understand why she was admitted to hospital. I will contact her daughter this morning to outline how we approach this chemoradiation from here on out. I would advocate a 50% reduction moving forward to avoid rehospitalization. Continue to encourage p.o. intake, particularly protein as her albumin is low. We will also discuss Jumana's case with Dr. Arriaga before moving forward. Dr. Piña will order PT and OT to begin moving Jumana around for strengthening and ambulation.
[2019-08-01] MEDS: METOPROLOL TARTRATE 25 MG TAB PO SCH (09:15)
--- NOTE | 2019-08-01 14:37 | Discharge Summary ---
Date of Service August 01, 2019 Admission HPI Per Admitting Provider Mrs. Duffy is an 79 year old female with past medical history of anxiety, CKD stage III, fatty liver, GERD, HTN, Pre-diabetes, PE, COPD who presented with nausea/vomiting/diarrhea. Patient was recently diagnosed with rectal cancer; she started daily RT qM-F 3 weeks ago; most recent treatment was last . She did not have RT on Sunday due to lack of transport. Patient developed nausea/vomiting/diarrhea 3 days ago. She has not been able to tolerate oral intake, fluids due to symptoms. She has upper abdominal pain. Patient has an upper chest rash -- she reports that rash developed after starting RT and was " bright red" last week. Rash has improved over the last few days due to lack of RT treatment. Denies URI symptoms, chest pain, SOB, LE edema, headache, dysuria or hematuria. ER course: CT A/P showed a generalized nonspecific enteritis, wall thickening of rectosigmoid c/w radiation type proctitis. K level was 2.4, Na 131 c/w hypovolemia, diarrhea. She received IV fluids, KCl and Mag replacement. Principal Diagnosis Nausea/vomiting/Diarrhea-enteritis, likely chemotherapy-induced Discharge Exam Constitutional WD/WN, vitals as above + obese Eyes + anicteric sclerae ENMT external ear and nose normal, oropharynx normal Neck trachea midline, no thyromegaly Respiratory normal respiratory effort, lungs clear to auscultation Cardiovascular RRR, no murmur, no edema Chest (Breasts) Chest: normal inspection of chest Gastrointestinal (Abdomen) Inspection/Auscultation: abdomen normal to inspection and normal bowel sounds Percussion/Palpation: + abdomen tender (very minimal diffusely,improved from previous) and abdomen soft; no guarding and abdomen not rigid Musculoskeletal Extremities: extremities normal to inspection; no cyanosis and no clubbing Skin no rashes, warm and dry Neurologic moves all extremities and awake; no focal motor deficits Psychiatric Orientation: alert, oriented to person, oriented to place, oriented to time and cooperative Affect: euthymic affect Lymphatic no lymphedema Discharge Data Allergies Allergy/AdvReac Type Severity Reaction Status Date / Time codeine Allergy Intermediate RASH Verified 07/30/19 17:41 amoxicillin Allergy Unknown UNKNOWN Verified 07/30/19 17:41 azithromycin Allergy Unknown Unknown Verified 03/25/20 17:41 neomycin Allergy Unknown ? RASH Verified 07/30/19 17:41 Sulfa (Sulfonamide Allergy Unknown BODY RASH, Verified 07/30/19 17:41 Antibiotics) YEAST INFECTIONS simvastatin AdvReac Unknown gi Verified 07/30/19 17:41 bleed/distress Consultations 07/30/19 17:04 ED Decision to Admit Stat 07/30/19 18:42 Consult Oncology Routine 07/31/19 10:05 Consult Gastroenterology Routine Ordered Studies 07/30/19 15:32 CT abd pelvis IV con only Stat Hospital Course (1) Nausea and vomiting: - CT A/P showed generalized nonspecific enteritis, radiation type proctitis. - Possibly related to viral gastroenteritis vs. chemotherapy induced. Much improved today-tolerating a regular diet, only one loose BM today Electrolytes improved with replacement, IVFs Stable for dc to home and will HOLD Xeloda as per my discussion with Oncology (2) Abdominal pain: -Presented with upper abdominal and periumbilical pain, with CT abd/pel with generalized enteritis and was reviewed with reading Radiologist--> no evidence on imaging of bowel ischemia or mesenteric artery stenosis Lactate negative -likely related to enteritis Improved prior to discharge (3) Diarrhea: - C. diff and stool cultures are pending collection, but were never collected prior to discharge. - Possibly related to chemotherapy vs. acute infection. -with some BRBPR on admission and no recurrence after admission GI consult appreciated--> supportive care, no scope indicated (4) Rectal carcinoma: - Recently diagnosed, started RT qMon-Fri 3 weeks ago, last treatment on 07/24/19. - Also on Capecitabine 1650 mg BID -- will hold med upon discharge as per oncology --> he will consider restarting at half dose moving forward - Appreciate oncology consult--> continue supportive care, no transfusion needed -with rectal bleeding, GI consult recommends continuing XRT -Rad Onc contacted staff and said they are following her closely and no need for inpatient XRT, will f/u as outpt with her to resume XRT (5) BRBPR (bright red blood per rectum): - Noted in ED by nursing staff -- possibly related to hemorrhoids vs. acute proctitis in setting of radiation therapy vs. GI bleed. Appreciate GI consult-continue XRT and no scope needed -hgb with slight drop to 8.9 after admission and then remained stable no further bleeding - Monitor CBC as outpt with Oncology (6) COPD (chronic obstructive pulmonary disease): - Continue home Incruse Ellipta. - No acute exacerbation noted. (7) Atrial arrhythmia: - Recently admitted May-Jun -- started Metoprolol 50 mg BID. - Echo showed preserved EF, no significant valvular disease. With low BPs here--> lowered metoprolol to 25mg po bid but after hydration, BPs improved and can restart usual dose on discharge (8) Pre-diabetes: - A1C in May 2019 was 5.9. - Encourage weight loss and exercise. - No indication for SSI coverage. (9) Chronic kidney disease, stage III (moderate): - Creatinine currently at baseline. - Monitor BMP daily. (10) Fatty liver: - Encourage heart healthy diet. (11) GERD without esophagitis: -continue home po PPI bid (12) Hypertension: -with lower BPs here due to dehydration -lowered Metoprolol to 25 mg BID as above for one day but now will revert back to home dose on discharge (13) Anemia: - Baseline hgb ~10-11. Acute blood loss anemia nad some hemodilution down to 8.9 from 10.6 from rectal bleeding and ?chemo - Monitor CBC as outpt (14) Hyponatremia: - Na level 131 -- likely hypovolemic hyponatremia on admission due to dehydration -increased to 134 with IVFs (15) Hypokalemia: - K level 2.4 on admission and now normalized with further replacement -follow BMP as outpt (16) Pulmonary embolism: - H/o such but not current; will hold pharmacologic ppx due to BRBPR. (17) Hypomagnesemia: Secondary to GI losses Mag 1.4-replaced with IV mag and improved on repeat testing (18) DVT prophylaxis: - SCDs; holding pharmacologic ppx. Dispo: stable for dc to home DNR/DNI -- confirmed by living will at bedside. Total Time Total Time Spent Total Time Spent (In Minutes): 40 min Total Time Includes: Examination of the Patient, Discharge Planning (discussed her care with daughter on phone) and Medication Reconciliation Discharge Plan Discharge Items Patient Disposition: Home - Self-Care Reason For Visit: NAUSEA/VOMITING,DIARRHEA Discharge Diagnosis: Chemotherapy-induced nausea/vomiting/diarrhea and enteritis Hypokalemia, hypomagnesemia Condition on Discharge: Good Activity: Resume your previous activity Non-emergency contact: Primary Care Provider and Oncologist Call non-emergency contact if: you have any medication questions, your symptoms worsen, your pain is not controlled, your pain is worsening, your pain is unusual for you, your pain is concerning for you, you have a fever and your temperature is above 101 Follow-up/Referrals: Yessenia Cameron DO [Primary Care Provider] - (No need for follow up at this time ) Sylvester Restrepo DO [Physician] - (Please call on Sunday for a follow up appointment with Dr. Restrepo ) Diet: Regular Addtl Attending Provider Instructions: Try to stay hydrated with fluids. Eat a bland diet in small amounts at a time. You will remain OFF your Xeloda for now until after you see Dr. Restrepo next week. Radiation Oncology will also be contacting you next week to see about when to resume your radiation treatments. Pending Studies at Discharge: No Stand-Alone Forms: [facility] Medications and DC Order Prescriptions: Continued pantoprazole 40 mg tablet,delayed release (DR/EC) 40 mg PO BID Qty: 60 RF: 5 duloxetine 30 mg capsule,delayed release(DR/EC) 30 mg PO DAILY Qty: 30 RF: 2 cholecalciferol (vitamin D3) 2,000 unit tablet 2,000 units PO DAILY Qty: 30 RF: 2 cyanocobalamin (vitamin B-12) 1,000 mcg capsule 1,000 mcg PO DAILY Qty: 30 RF: 5 folic acid 1 mg tablet 1 mg PO DAILY Qty: 30 RF: 5 triamcinolone acetonide 0.025 % cream 1 appln TOP TID PRN (Reason: breakouts) Qty: 15 RF: 0 metoprolol tartrate 50 mg Tablet 50 mg PO BID Qty: 180 RF: 0 diphenoxylate-atropine 2.5-0.025 mg tablet 1 tab PO QID PRN (Reason: Diarrhea) RF: 0 ondansetron HCl [Zofran] 4 mg Tablet 4 mg PO Q6H PRN (Reason: Nausea) RF: 0 Discontinued capecitabine 150 mg Tablet 1,600 mg PO BID RF: 0 Discharge Orders: Discharge Order (Routine); Ordered 08/01/19 Ordered By: Alaina Piña Admission Data Admit Date/Time: 07/30/19 17:25 Attending Provider: Alaina Piña Admit Provider: Alaina Piña Primary Care Provider: Yessenia Cameron Other Providers: Sylvester Restrepo V. Other Interventions: Discharge Summary Assessment (RN) Last Done: 08/01/19 14:43 DC Date/Time DO NOT enter until pt leaves facility: 08/01/19 15:30 Coding Level of Care Code 38149 OBS Care - Discharge Diagnoses Nausea and vomiting R11.2 Abdominal pain R10.9 Abdominal location: unspecified location Diarrhea R19.7 Rectal carcinoma C20 BRBPR (bright red blood per rectum) K62.5 COPD (chronic obstructive pulmonary disease) J44.1 COPD type: COPD with acute exacerbation Atrial arrhythmia I49.8 Pre-diabetes R73.03 Chronic kidney disease, stage III (moderate) N18.3 Fatty liver K76.0 GERD without esophagitis K21.9 Hypertension I10 Anemia D64.9 Hyponatremia E87.1 Hypokalemia E87.6 Pulmonary embolism I26.99 Hypomagnesemia E83.42 DVT prophylaxis Z29.9
[2019-08-01 15:04] VITALS: BP 119/69; PULSE 89; TEMP 97.5; O2SAT 98
== END 2019-08-01 15:30 | disposition home or self-care (01) ==
LOC: ED 15:23 → 2N 15:23